=== PATIENT | female | born 1950 | race Caucasian/White ===

== ENCOUNTER 2018-06-21 21:46 | Inpatient (IN) | payer OTHER ==
[~2018-06-21] VITALS: Ht 157.5 cm; Wt 64.9 kg
[2018-06-21] MEDS ORDERED: IV NORMAL SALINE 1000ML BAG 1,000 ML IV ONE (22:00)
[2018-06-21 22:13] LABS: BASO # 0.1 x10^3/uL (0.0-0.2); BASO % 1 % (0-3); EOS # 0.1 x10^3/uL (0.0-0.7); EOS % 1 % (0-3); HEMATOCRIT 36.3 % (36.0-47.0); HEMOGLOBIN 12.5 g/dL (12.0-15.5); LYMPH % 39 % (24-48); MEAN CORPUSCULAR HEMOGLOBIN 32 pg (25-35); MEAN CORPUSCULAR HGB CONC 34 g/dL (31-37); MEAN CORPUSCULAR VOLUME 94 fL (79-100); MONO # 0.4 x10^3/uL (0.0-1.1); MONO % 8 % (0-9); NEUT # 2.6 x10^3uL (1.8-7.7); NEUT % 51 % (31-73); PLATELET COUNT 134 x10^3/uL (140-400); RED BLOOD COUNT 3.86 x10^6/uL (3.50-5.40); RED CELL DISTRIBUTION WIDTH 13.9 % (11.5-14.5); WHITE BLOOD COUNT 5.2 x10^3/uL (4.0-11.0)
[2018-06-21 22:14] LABS: BILIRUBIN,URINE NEGATIVE (NEG); CLARITY,URINE CLEAR; COLOR,URINE YELLOW; NITRITE,URINE NEGATIVE (NEG); PH,URINE 6.5; PROTEIN,URINE NEGATIVE (NEG-TRACE)
[2018-06-21 22:21] LABS: BARBITURATES NEG (NEG); BENZODIAZEPINES NEG (NEG); CANNABINOIDS NEG (NEG); COCAINE NEG (NEG); METHADONE NEG (NEG); OPIATES NEG (NEG); PHENCYCLIDINE NEG (NEG)
[2018-06-21 22:22] LABS: AMPHETAMINE/METHAMPHETAMINE NEG (NEG)
[2018-06-21 22:23] LABS: PROTHROMBIN TIME PATIENT 13.3 SEC (11.7-14.0)
[2018-06-21 22:24] LABS: BACTERIA,URINE 0 /HPF (0-FEW); RBC,URINE 0 /HPF (0-2); SQUAMOUS EPITHELIAL CELL,UR FEW /LPF; WBC,URINE 0 /HPF (0-4)
[2018-06-21 22:29] LABS: CALCIUM 8.9 mg/dL (8.5-10.1); CREATININE 1.1 mg/dL (0.6-1.0); GFR 49.5; POTASSIUM 3.2 mmol/L (3.5-5.1)
[2018-06-21 22:43] LABS: CREATINE KINASE 55 U/L (26-192)
[2018-06-21 22:44] LABS: ALBUMIN 3.7 g/dL (3.4-5.0); ALBUMIN/GLOBULIN RATIO 0.8 (1.0-1.7); MAGNESIUM 1.3 mg/dL (1.8-2.4); TOTAL BILIRUBIN 1.5 mg/dL (0.2-1.0); TOTAL PROTEIN 8.2 g/dL (6.4-8.2)
--- NOTE | 2018-06-21 22:47 | RAD ---
Chest radiograph 06/21/2018 9:56 PM INDICATION: Altered mental status COMPARISON: None available TECHNIQUE: Portable upright frontal view of the chest is provided. FINDINGS: The cardiomediastinal silhouette is within normal limits. There are no pleural effusions. There is no pulmonary vascular congestion. There is no pneumothorax. The lungs are clear. No significant osseous abnormality is identified. IMPRESSION: No acute cardiopulmonary process. Electronically signed by: Dodie Henry MD (06/21/2018 10:44 PM) [facility]
--- NOTE | 2018-06-21 22:48 | RAD ---
PQRS Compliance statement: One or more of the following individualized dose reduction techniques were utilized for this examination: 1. Automated exposure control. 2. Adjustment of the mA and/or kV according to patient size. 3. Use of iterative reconstruction technique. Indication:ams, no priors TECHNIQUE: CT head without IV contrast COMPARISON:None FINDINGS: No pathologic extra-axial or intra-axial fluid collection. The ventricles and basal cisterns are within normal limits. No acute intracranial bleed. There is a moderate-sized area of low-attenuation with loss of howard-white differentiation in the left parietal and temporal lobe. Orbits are within normal limits. No suspicious calvarial lesion. Visualized paranasal sinuses and mastoid air cells are clear. IMPRESSION: 1. Moderate area of wedge-shaped low-attenuation in the left parietal and temporal lobe with loss of howard-white differentiation concerning for infarct, age indeterminate likely subacute. Further elevation with MRI recommended. Findings of the Dr. Nagel on 06/21/2018 at 10:44 PM. Electronically signed by: Bertin Patrick DO (06/21/2018 10:45 PM) [facility]
[2018-06-21] MEDS ORDERED: DEXTROSE 50% 25 GM / 50ML DISP.SYRIN. IV PRN (23:30)
[2018-06-21] MEDS ORDERED: ASPIRIN RECTAL 300 MG SUPP. PR ONE (23:30)
[2018-06-21] MEDS ORDERED: ONDANSETRON PF 4 MG/2 ML VIAL. IV PRN (23:30)
--- NOTE | 2018-06-21 23:32 | PHYS DOC ---
Past Medical History Past Medical History: Anxiety, CVA, Diabetes-Type II, Hypertension Past Medical History Limited due to patient's current altered mental state. Past Surgical History: Appendectomy, Cholecystectomy Past Surgical History Limited due to patient's current altered mental state. Smoking: Quit Greater Than 1 Year Alcohol Use: Occasionally Drug Use: None Social History Limited due to patient's current altered mental state. Adult General Chief Complaint Chief Complaint: NEURO SYMPTOMS/DEFICITS HPI HPI 68 y/o female presents via EMS with report of altered mental status and reports of difficulty speaking and "writing gibberish" per son. Patient last known well was yesterday, 06/20/18 in AM. Change was noticed that evening but patient did not want to seek medical care at that time. No known trauma. HPI limited due to patient's current altered mental state. Review of Systems Review of Systems Constitutional: Denies fever or chills [] Respiratory: Denies shortness of breath [] Cardiovascular: Denies chest pain GI: Denies vomiting Integument: Denies rash or skin lesions [] Neurologic: Slurred speech, altered mental status ROS limited due to altered mental status Current Medications Current Medications Current Medications Medications (Trade) Dose Ordered Sig/Irma Start Time Stop Time Status Last Admin Dose Admin Sodium Chloride 1,000 ml @ 1,000 mls/hr 1X ONCE 06/21/18 22:00 06/21/18 22:59 DC 06/21/18 23:53 1,000 MLS/HR Allergies Allergies Physical Exam Physical Exam Constitutional: Well developed, well nourished, no acute distress HENT: Normocephalic, atraumatic, oropharynx moist Eyes: PERRL, EOMI, conjunctiva normal, no discharge. [] Neck: Normal range of motion, no tenderness, supple, no meningeal signs Cardiovascular:Heart rate normal with regular rhythm Lungs & Thorax: Bilateral breath sounds clear to auscultation [] Abdomen: Soft, no tenderness Skin: Warm, dry, no erythema, no rash. [] Extremities: No tenderness, ROM intact, no edema. [] Neurologic: GCS 13 (eyes 4, verbal 3, motor 6), unable to answer name or date, difficulty with following commands, No sensation deficit noted, BLE leg raise with drift touching bed, BUE without drift, severe dysarthria and moderate expressive aphasia noted Psychologic: Affect flat, judgement abnormal, unable to fully access Current Patient Data Vital Signs Lab Values Laboratory Tests Test 06/21/18 21:51 06/21/18 22:05 Glucose (Fingerstick) 98 mg/dL (70-99) White Blood Count 5.2 x10^3/uL (4.0-11.0) Red Blood Count 3.86 x10^6/uL (3.50-5.40) Hemoglobin 12.5 g/dL (12.0-15.5) Hematocrit 36.3 % (36.0-47.0) Mean Corpuscular Volume 94 fL (79-100) Mean Corpuscular Hemoglobin 32 pg (25-35) Mean Corpuscular Hemoglobin Concent 34 g/dL (31-37) Red Cell Distribution Width 13.9 % (11.5-14.5) Platelet Count 134 x10^3/uL (140-400) L Neutrophils (%) (Auto) 51 % (31-73) Lymphocytes (%) (Auto) 39 % (24-48) Monocytes (%) (Auto) 8 % (0-9) Eosinophils (%) (Auto) 1 % (0-3) Basophils (%) (Auto) 1 % (0-3) Neutrophils # (Auto) 2.6 x10^3uL (1.8-7.7) Lymphocytes # (Auto) 2.0 x10^3/uL (1.0-4.8) Monocytes # (Auto) 0.4 x10^3/uL (0.0-1.1) Eosinophils # (Auto) 0.1 x10^3/uL (0.0-0.7) Basophils # (Auto) 0.1 x10^3/uL (0.0-0.2) Prothrombin Time 13.3 SEC (11.7-14.0) Prothrombin Time INR 1.0 (0.8-1.1) PTT 28 SEC (24-38) Urine Collection Type U cath Urine Color Yellow Urine Clarity Clear Urine pH 6.5 Urine Specific [place] <=1.005 Urine Protein Negative mg/dL (NEG-TRACE) Urine Glucose (UA) Negative mg/dL (NEG) Urine Ketones (Stick) Negative mg/dL (NEG) Urine Blood Negative (NEG) Urine Nitrite Negative (NEG) Urine Bilirubin Negative (NEG) Urine Urobilinogen Dipstick 4.0 mg/dL (0.2 mg/dL) Urine Leukocyte Esterase Negative (NEG) Urine RBC 0 /HPF (0-2) Urine WBC 0 /HPF (0-4) Urine Squamous Epithelial Cells Few /LPF Urine Bacteria 0 /HPF (0-FEW) Sodium Level 133 mmol/L (136-145) L Potassium Level 3.2 mmol/L (3.5-5.1) L Chloride Level 94 mmol/L (98-107) L Carbon Dioxide Level 25 mmol/L (21-32) Anion Gap 14 (6-14) Blood Urea Nitrogen 16 mg/dL (7-20) Creatinine 1.1 mg/dL (0.6-1.0) H Estimated GFR (Cockcroft-Gault) 49.5 BUN/Creatinine Ratio 15 (6-20) Glucose Level 100 mg/dL (70-99) H Lactic Acid Level 1.8 mmol/L (0.4-2.0) Calcium Level 8.9 mg/dL (8.5-10.1) Magnesium Level 1.3 mg/dL (1.8-2.4) L Total Bilirubin 1.5 mg/dL (0.2-1.0) H Aspartate Amino Transferase (AST) 30 U/L (15-37) Alanine Aminotransferase (ALT) 27 U/L (14-59) Alkaline Phosphatase 167 U/L (46-116) H Ammonia 11 mcmol/L (11-34) Creatine Kinase 55 U/L (26-192) Creatine Kinase MB (Mass) 0.6 ng/mL (0.0-3.6) Creatine Kinase MB Relative Index % (0-4) Troponin I Quantitative < 0.017 ng/mL (0.000-0.055) Total Protein 8.2 g/dL (6.4-8.2) Albumin 3.7 g/dL (3.4-5.0) Albumin/Globulin Ratio 0.8 (1.0-1.7) L Urine Opiates Screen Neg (NEG) Urine Methadone Screen Neg (NEG) Urine Barbiturates Neg (NEG) Urine Phencyclidine Screen Neg (NEG) Urine Amphetamine/Methamphetamine Neg (NEG) Urine Benzodiazepines Screen Neg (NEG) Urine Cocaine Screen Neg (NEG) Urine Cannabinoids Screen Neg (NEG) Ethyl Alcohol Level < 10 mg/dL (0-10) Urine Ethyl Alcohol Neg (NEG) Laboratory Tests 06/21/18 22:05 Laboratory Tests 06/21/18 22:05 EKG EKG @2157 NSR at 61bpm, NO ST elevation, baseline artifact noted to V5-V6 Radiology/Procedures Radiology/Procedures PROCEDURE: CT HEAD WO CONTRAST PQRS Compliance statement: One or more of the following individualized dose reduction techniques were utilized for this examination: 1. Automated exposure control. 2. Adjustment of the mA and/or kV according to patient size. 3. Use of iterative reconstruction technique. Indication:ams, no priors TECHNIQUE: CT head without IV contrast COMPARISON:None FINDINGS: No pathologic extra-axial or intra-axial fluid collection. The ventricles and basal cisterns are within normal limits. No acute intracranial bleed. There is a moderate-sized area of low-attenuation with loss of howard-white differentiation in the left parietal and temporal lobe. Orbits are within normal limits. No suspicious calvarial lesion. Visualized paranasal sinuses and mastoid air cells are clear. IMPRESSION: 1. Moderate area of wedge-shaped low-attenuation in the left parietal and temporal lobe with loss of howard-white differentiation concerning for infarct, age indeterminate likely subacute. Further elevation with MRI recommended. Findings of the Dr. Goodwin on 06/21/2018 at 10:44 PM. Electronically signed by: Bertin Patrick DO (06/21/2018 10:45 PM) [facility] PROCEDURE: CHEST AP ONLY Chest radiograph 06/21/2018 9:56 PM INDICATION: Altered mental status COMPARISON: None available TECHNIQUE: Portable upright frontal view of the chest is provided. FINDINGS: The cardiomediastinal silhouette is within normal limits. There are no pleural effusions. There is no pulmonary vascular congestion. There is no pneumothorax. The lungs are clear. No significant osseous abnormality is identified. IMPRESSION: No acute cardiopulmonary process. Electronically signed by: Dodie Henry MD (06/21/2018 10:44 PM) [facility] Course & Med Decision Making Course & Med Decision Making Pertinent Labs and Imaging studies reviewed. (See chart for details) Patient presents via EMS with altered mental status with concern for possible stoke. NIHSS 11 with focal deficits including aphasia, dysarthria, and global confusion. GCS 13. No known trauma. CT head with findings concerning for subacute CVA. Patient outside window of time for TPA or neurointerventional therapy. ASA AR given. Labs obtained and posted to chart. EKG stable. CXR without acute process. Patient requiring admission for further evaluation and treatment. Discussed with Dr. Man (hospitalist) who is in agreement with admit. Discussed findings and plan with family, who acknowledge understanding and agreement. Dragon Disclaimer Dragon Disclaimer This electronic medical record was generated, in whole or in part, using a voice recognition dictation system. Departure Departure Impression: Primary Impression: Acute CVA (cerebrovascular accident) Disposition: ADMITTED INPATIENT Admitting Physician: Other (Dr. Man) Condition: GUARDED Referrals: NEFTALY HUNT MD (PCP) Critical Care Time Critical care time was 30 minutes which includes time at bedside, spent in discussion of patient's care with specialists and/or family members, with interpretation of laboratory and/or radiological studies and is exclusive of procedures. NIHSS Stroke Scale NIH Stroke Scale: NIH Stroke Scale Response (Comments) Value Level of Consciousness: 0 Alert/Responsive 0 LOC Questions: 2 Answers neither correct 2 LOC Commands: 1 Performs one task 1 Best Gaze: 0 Normal 0 Visual: 0 No visual loss 0 Facial Palsy: 0 Normal, symmetrical 0 Motor - Left Arm 0 No drift 0 Motor - Right Arm 0 No drift 0 Motor - Left Leg 2 Some effort 2 Motor: Right Leg 2 Some effort 2 Limb Ataxia: 0 Absent 0 Sensory: 0 No loss 0 Best Language: 1 Mild to mod aphasia 1 Dysathria: 2 Severe 2 Extinction and Inattention: 1 One sensory modality 1 Total 11 GOODWIN,VALERIE Salgado DO Jun 21, 2018 23:32
[2018-06-22] VITALS (7 sets, daily range): BP systolic 131–182; BP diastolic 50–86
[2018-06-22] MEDS ORDERED: METF500T9 PO (03:18)
[2018-06-22] MEDS ORDERED: LEVO100T5 PO (03:18)
[2018-06-22] MEDS ORDERED: GLIP1TAB4 PO ×4 (03:18→03:30)
[2018-06-22] MEDS ORDERED: LISI-130 PO (03:18)
[2018-06-22] MEDS ORDERED: ATEN100T PO (03:18)
[2018-06-22] MEDS ORDERED: LORA1TAB PO (03:30)
[2018-06-22] MEDS ORDERED: HYDR-3164 PO ×2 (03:30)
--- NOTE | 2018-06-22 05:42 | NUR ---
Patient admitted approximately 0045, accompanied by several family members. NIH completed upon arrival, noted to be at 6. Not able to communicate or able to comprehend simple instructions. No signs or symptoms of pain.
[2018-06-22] MEDS: INSULIN LISPRO 300 UNITS/3 ML INSULN.PEN. SQ SCH ×3 (08:00→17:00)
--- NOTE | 2018-06-22 08:20 | PDOC1 ---
History and Physical Date of Admission Date of Admission DATE: 06/22/18 TIME: 08:17 Identification/Chief Complaint Chief Complaint 68 yo NIH on admit was 11 Admitted for likely CVA Source Source: Caregiver, Chart review, Patient History of Present Illness History of Present Illness Ms Alford is a 68yo F w/ PMHx HTN, DM2, hypothyroidism who presents with aphasia noted by her son this morning. Last seen normal Tuesday night. She makes meaningful eye contact, does not appropriately follow commands, moves all extremities. No recent trauma or illness. She was writing "gibberish" according to her son as well and was very concerning. Came to hospital for further care. Potassium 3.2, Na 133 EKG to ma showed NSR at 61bpm, NO ST elevation, baseline artifact noted to V5-V6 CT revealed wedge shaped hypodensity in left MCA territory parietal and temporal lobes. Past Medical History Cardiovascular: HTN Pulmonary: No pertinent hx GI: No pertinent hx Heme/Onc: No pertinent hx Hepatobiliary: No pertinent hx Psych: No pertinent hx Musculoskeletal: low back pain Rheumatologic: No pertinent hx Infectious disease: No pertinent hx ENT: No pertinent hx Renal/: No pertinent hx Endocrine: Diabetes, Hyperthyroidism Dermatology: No pertinent hx Past Surgical History Past Surgical History: No pertinent history Family History Family History: Diabetes, Hypothyroidism Social History Smoke: Quit (7 years ago) ALCOHOL: rare Drugs: None Current Problem List Problem List Problems Medical Problems: (1) Acute CVA (cerebrovascular accident) Status: Acute Current Medications Current Medications Current Medications Sodium Chloride 1,000 ml @ 1,000 mls/hr 1X ONCE IV Last administered on at 23:53; Start 06/21/18 at 22:00; Stop 06/21/18 at 22:59; Status DC Aspirin (Aspirin) 300 mg 1X ONCE FL Last administered on 06/21/18at 23:52; Start 06/21/18 at 23:30; Stop 06/21/18 at 23:31; Status DC Ondansetron HCl (Zofran) 4 mg PRN Q8HRS PRN IV NAUSEA/VOMITING; Start 06/21/18 at 23:30; Stop 06/22/18 at 23:29 Insulin Human Lispro (HumaLOG) 0-5 UNITS TIDWMEALS SQ ; Start 06/22/18 at 08:00 Dextrose (Dextrose 50%-Water Syringe) 12.5 gm PRN Q15MIN PRN IV SEE COMMENTS; Start 06/21/18 at 23:30 Active Scripts Active Reported Lorazepam 1 Mg Tablet 1 Tab PO TID PRN PRN [place] 5-325 Tablet (Acetaminophen/Hydrocodone Bitart) 1 Each Tablet 1-2 Tab PO PRN Q4-6HRS PRN Glipizide-Metformin 2.5-500 Mg (Glipizide/Metformin Hcl) 1 Each Tablet 1 Each PO DAILYWSUP Glipizide-Metformin 2.5-500 Mg (Glipizide/Metformin Hcl) 1 Each Tablet 2 Each PO DAILY Atenolol 100 Mg Tablet 1 Tab PO DAILY Levothyroxine Sodium 100 Mcg Tablet 1 Tab PO DAILY Metformin Hcl Er (Metformin Hcl) 500 Mg Tab.er.24h 500 Mg PO DAILYWBKFT Lisinopril 40 Mg Tablet 1 Tab PO DAILY Allergies Allergies: Coded Allergies: No Known Drug Allergies (Unverified , 06/21/18) ROS Review of System Unable to obtain due to nonverbal status Physical Exam General: No acute distress, Other (Does not follow commands) HEENT: Atraumatic, PERRLA, EOMI, Mucous membr. moist/pink Lungs: Clear to auscultation, Normal air movement Heart: S1S2, RRR, no gallops Abdomen: Normal bowel sounds, Soft, No tenderness, No hepatosplenomegaly, No masses Extremities: No clubbing, No cyanosis, No edema, Normal pulses, No tenderness/ swelling Skin: No rashes, No breakdown, No significant lesion Neuro: Normal gait, Strength at 5/5 X4 ext, Normal tone, Reflexes 2+ Vitals Vitals Vital Signs Date Time Temp Pulse Resp B/P (MAP) Pulse Ox O2 Delivery O2 Flow Rate FiO2 06/22/18 07:05 98.6 63 16 146/86 (106) 98 Room Air 98.6 Labs Labs Laboratory Tests Test 06/21/18 21:51 06/21/18 22:05 06/22/18 02:30 06/22/18 05:25 Glucose (Fingerstick) 98 mg/dL (70-99) White Blood Count 5.2 x10^3/uL (4.0-11.0) Red Blood Count 3.86 x10^6/uL (3.50-5.40) Hemoglobin 12.5 g/dL (12.0-15.5) Hematocrit 36.3 % (36.0-47.0) Mean Corpuscular Volume 94 fL (79-100) Mean Corpuscular Hemoglobin 32 pg (25-35) Mean Corpuscular Hemoglobin Concent 34 g/dL (31-37) Red Cell Distribution Width 13.9 % (11.5-14.5) Platelet Count 134 x10^3/uL (140-400) Neutrophils (%) (Auto) 51 % (31-73) Lymphocytes (%) (Auto) 39 % (24-48) Monocytes (%) (Auto) 8 % (0-9) Eosinophils (%) (Auto) 1 % (0-3) Basophils (%) (Auto) 1 % (0-3) Neutrophils # (Auto) 2.6 x10^3uL (1.8-7.7) Lymphocytes # (Auto) 2.0 x10^3/uL (1.0-4.8) Monocytes # (Auto) 0.4 x10^3/uL (0.0-1.1) Eosinophils # (Auto) 0.1 x10^3/uL (0.0-0.7) Basophils # (Auto) 0.1 x10^3/uL (0.0-0.2) Prothrombin Time 13.3 SEC (11.7-14.0) Prothromb Time International Ratio 1.0 (0.8-1.1) Activated Partial Thromboplast Time 28 SEC (24-38) Urine Collection Type U cath Urine Color Yellow Urine Clarity Clear Urine pH 6.5 Urine Specific [place] <=1.005 Urine Protein Negative mg/dL (NEG-TRACE) Urine Glucose (UA) Negative mg/dL (NEG) Urine Ketones (Stick) Negative mg/dL (NEG) Urine Blood Negative (NEG) Urine Nitrite Negative (NEG) Urine Bilirubin Negative (NEG) Urine Urobilinogen Dipstick 4.0 mg/dL (0.2 mg/dL) Urine Leukocyte Esterase Negative (NEG) Urine RBC 0 /HPF (0-2) Urine WBC 0 /HPF (0-4) Urine Squamous Epithelial Cells Few /LPF Urine Bacteria 0 /HPF (0-FEW) Sodium Level 133 mmol/L (136-145) Potassium Level 3.2 mmol/L (3.5-5.1) Chloride Level 94 mmol/L (98-107) Carbon Dioxide Level 25 mmol/L (21-32) Anion Gap 14 (6-14) Blood Urea Nitrogen 16 mg/dL (7-20) Creatinine 1.1 mg/dL (0.6-1.0) Estimated GFR (Cockcroft-Gault) 49.5 BUN/Creatinine Ratio 15 (6-20) Glucose Level 100 mg/dL (70-99) Lactic Acid Level 1.8 mmol/L (0.4-2.0) Calcium Level 8.9 mg/dL (8.5-10.1) Magnesium Level 1.3 mg/dL (1.8-2.4) Total Bilirubin 1.5 mg/dL (0.2-1.0) Aspartate Amino Transf (AST/SGOT) 30 U/L (15-37) Alanine Aminotransferase (ALT/SGPT) 27 U/L (14-59) Alkaline Phosphatase 167 U/L (46-116) Ammonia 11 mcmol/L (11-34) Creatine Kinase 55 U/L (26-192) Creatine Kinase MB (Mass) 0.6 ng/mL (0.0-3.6) Creatine Kinase MB Relative Index % (0-4) Troponin I Quantitative < 0.017 ng/mL (0.000-0.055) 0.026 ng/mL (0.000-0.055) 0.023 ng/mL (0.000-0.055) Total Protein 8.2 g/dL (6.4-8.2) Albumin 3.7 g/dL (3.4-5.0) Albumin/Globulin Ratio 0.8 (1.0-1.7) Urine Opiates Screen Neg (NEG) Urine Methadone Screen Neg (NEG) Urine Barbiturates Neg (NEG) Urine Phencyclidine Screen Neg (NEG) Urine Amphetamine/Methamphetamine Neg (NEG) Urine Benzodiazepines Screen Neg (NEG) Urine Cocaine Screen Neg (NEG) Urine Cannabinoids Screen Neg (NEG) Ethyl Alcohol Level < 10 mg/dL (0-10) Urine Ethyl Alcohol Neg (NEG) Triglycerides Level 157 mg/dL (0-150) Cholesterol Level 135 mg/dL (0-200) LDL Cholesterol, Calculated 77 mg/dL (0-100) VLDL Cholesterol, Calculated 31 mg/dL (0-40) Non-HDL Cholesterol Calculated 108 mg/dL (0-129) HDL Cholesterol 27 mg/dL (40-60) Cholesterol/HDL Ratio 5.0 Test 06/22/18 07:00 Glucose (Fingerstick) 110 mg/dL (70-99) Laboratory Tests Test 06/21/18 21:51 06/21/18 22:05 06/22/18 02:30 06/22/18 05:25 Glucose (Fingerstick) 98 mg/dL (70-99) White Blood Count 5.2 x10^3/uL (4.0-11.0) Red Blood Count 3.86 x10^6/uL (3.50-5.40) Hemoglobin 12.5 g/dL (12.0-15.5) Hematocrit 36.3 % (36.0-47.0) Mean Corpuscular Volume 94 fL (79-100) Mean Corpuscular Hemoglobin 32 pg (25-35) Mean Corpuscular Hemoglobin Concent 34 g/dL (31-37) Red Cell Distribution Width 13.9 % (11.5-14.5) Platelet Count 134 x10^3/uL (140-400) Neutrophils (%) (Auto) 51 % (31-73) Lymphocytes (%) (Auto) 39 % (24-48) Monocytes (%) (Auto) 8 % (0-9) Eosinophils (%) (Auto) 1 % (0-3) Basophils (%) (Auto) 1 % (0-3) Neutrophils # (Auto) 2.6 x10^3uL (1.8-7.7) Lymphocytes # (Auto) 2.0 x10^3/uL (1.0-4.8) Monocytes # (Auto) 0.4 x10^3/uL (0.0-1.1) Eosinophils # (Auto) 0.1 x10^3/uL (0.0-0.7) Basophils # (Auto) 0.1 x10^3/uL (0.0-0.2) Prothrombin Time 13.3 SEC (11.7-14.0) Prothromb Time International Ratio 1.0 (0.8-1.1) Activated Partial Thromboplast Time 28 SEC (24-38) Urine Collection Type U cath Urine Color Yellow Urine Clarity Clear Urine pH 6.5 Urine Specific [place] <=1.005 Urine Protein Negative mg/dL (NEG-TRACE) Urine Glucose (UA) Negative mg/dL (NEG) Urine Ketones (Stick) Negative mg/dL (NEG) Urine Blood Negative (NEG) Urine Nitrite Negative (NEG) Urine Bilirubin Negative (NEG) Urine Urobilinogen Dipstick 4.0 mg/dL (0.2 mg/dL) Urine Leukocyte Esterase Negative (NEG) Urine RBC 0 /HPF (0-2) Urine WBC 0 /HPF (0-4) Urine Squamous Epithelial Cells Few /LPF Urine Bacteria 0 /HPF (0-FEW) Sodium Level 133 mmol/L (136-145) Potassium Level 3.2 mmol/L (3.5-5.1) Chloride Level 94 mmol/L (98-107) Carbon Dioxide Level 25 mmol/L (21-32) Anion Gap 14 (6-14) Blood Urea Nitrogen 16 mg/dL (7-20) Creatinine 1.1 mg/dL (0.6-1.0) Estimated GFR (Cockcroft-Gault) 49.5 BUN/Creatinine Ratio 15 (6-20) Glucose Level 100 mg/dL (70-99) Lactic Acid Level 1.8 mmol/L (0.4-2.0) Calcium Level 8.9 mg/dL (8.5-10.1) Magnesium Level 1.3 mg/dL (1.8-2.4) Total Bilirubin 1.5 mg/dL (0.2-1.0) Aspartate Amino Transf (AST/SGOT) 30 U/L (15-37) Alanine Aminotransferase (ALT/SGPT) 27 U/L (14-59) Alkaline Phosphatase 167 U/L (46-116) Ammonia 11 mcmol/L (11-34) Creatine Kinase 55 U/L (26-192) Creatine Kinase MB (Mass) 0.6 ng/mL (0.0-3.6) Creatine Kinase MB Relative Index % (0-4) Troponin I Quantitative < 0.017 ng/mL (0.000-0.055) 0.026 ng/mL (0.000-0.055) 0.023 ng/mL (0.000-0.055) Total Protein 8.2 g/dL (6.4-8.2) Albumin 3.7 g/dL (3.4-5.0) Albumin/Globulin Ratio 0.8 (1.0-1.7) Urine Opiates Screen Neg (NEG) Urine Methadone Screen Neg (NEG) Urine Barbiturates Neg (NEG) Urine Phencyclidine Screen Neg (NEG) Urine Amphetamine/Methamphetamine Neg (NEG) Urine Benzodiazepines Screen Neg (NEG) Urine Cocaine Screen Neg (NEG) Urine Cannabinoids Screen Neg (NEG) Ethyl Alcohol Level < 10 mg/dL (0-10) Urine Ethyl Alcohol Neg (NEG) Triglycerides Level 157 mg/dL (0-150) Cholesterol Level 135 mg/dL (0-200) LDL Cholesterol, Calculated 77 mg/dL (0-100) VLDL Cholesterol, Calculated 31 mg/dL (0-40) Non-HDL Cholesterol Calculated 108 mg/dL (0-129) HDL Cholesterol 27 mg/dL (40-60) Cholesterol/HDL Ratio 5.0 Test 06/22/18 07:00 Glucose (Fingerstick) 110 mg/dL (70-99) Images Images CT head - 1. Moderate area of wedge-shaped low-attenuation in the left parietal and temporal lobe with loss of howard-white differentiation concerning for infarct , age indeterminate likely subacute. Further elevation with MRI recommended. CXR - No acute cardiopulmonary process. VTE Prophylaxis Ordered VTE Prophylaxis Devices: No VTE Pharmacological Prophylaxi: Yes Assessment/Plan Assessment/Plan A/P: Aphasia - based on CT head likely has a large left parietal and temporal CVA with receptive and expressive aphasia, seems to be feeling her right hand as though there is sensation loss. Does not follow commands at all. ASA, statin, Neurology consultation. 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
--- NOTE | 2018-06-22 09:19 | EKG ---
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
--- NOTE | 2018-06-22 12:33 | RAD ---
Carotid ultrasound, 06/22/2018: HISTORY: CVA Duplex evaluation of the carotid arteries to the ovaries performed including grayscale, color-flow and spectral Doppler analysis. There is mild atherosclerotic plaquing at the right carotid bifurcation and moderate plaquing on the left. The left plaques are partially calcified. The peak systolic velocity in the right internal carotid artery is 64 cm per sec with an end-diastolic velocity of 19 cm/s and an internal carotid to common carotid artery ratio of 0.9. On the left the peak systolic velocity in the internal carotid artery is 85 cm/s with an end-diastolic velocity of 23 cm/s and an internal carotid to common carotid artery ratio 1.0. These Doppler findings suggest luminal narrowing in the 0-50 percent diameter range. Antegrade flow is present in both vertebral arteries in the neck. IMPRESSION: Mild to moderate atherosclerotic plaquing at the carotid bifurcations, left greater than right, with underlying luminal narrowing in the 0-50 percent diameter range bilaterally. Note: Stenosis calculations for CT, MRA and conventional angiography are based upon determination of the distal ICA diameter in accordance with the NASCET methodology. Stenosis calculations for Doppler studies are derived from validated velocity criteria which are known to correlate with NASCET methodology of determining stenosis. Electronically signed by: Aj Velarde MD (06/22/2018 12:31 PM) [facility]
--- NOTE | 2018-06-22 13:02 | RAD ---
MRI of the brain without contrast 06/22/2018 Clinical History: Altered mental status. Suspected acute stroke seen CT scan of the head from yesterday. Technique: Unenhanced T1-weighted sagittal and axial, T2-weighted axial and coronal and FLAIR, gradient echo and diffusion-weighted axial images of the brain were obtained. Findings: Comparison is made to the patient's CT scan of the head dated 06/21/2018. There is generalized parenchymal atrophy. Patchy, confluent and multiple focal areas of increased signal intensity are seen within the periventricular and subcortical white matter of both cerebral hemispheres on the FLAIR and T2-weighted images consistent with areas of small vessel ischemic disease. Old areas of infarction are seen involving both cerebellar hemispheres. These measure 3 mm to 9 mm in size. Old areas of lacunar infarction are seen involving the right thalamus. These measure 3 mm in size. Old areas of lacunar infarction are seen involving the white matter of the right frontoparietal lobe. These measure 5 mm to 1.2 cm in size. A large area of restricted diffusion is seen involving the left temporal lobe extending to involve the left parietal lobe. This measures 10 x 5.0 x 4.8 cm in AP, craniocaudal and transverse dimensions. This is consistent with an area of acute infarction. This is in a left MCA distribution. It corresponds to the low-attenuation area seen on the patient's CT scan. There is surrounding edema and associated mass effect without evidence of midline shift. No additional acute parenchymal abnormality is seen. No extra-axial fluid collection is noted. Mild mucosal thickening is seen scattered throughout ethmoid air cells bilaterally. There is a minimal right mastoid effusion. Diminished flow void is seen involving the left MCA trifurcation and its branches. IMPRESSION: Large area of acute infarction is seen involving the left temporal and left parietal lobe as outlined above. There is surrounding edema and associated mass effect without evidence of midline shift. Electronically signed by: Eduardo Schilling MD (06/22/2018 1:00 PM) [id number]
[2018-06-22] MEDS ORDERED: HYDROcodone/APAP 5/325MG 1 TAB TABLET PO PRN (15:00)
--- NOTE | 2018-06-22 15:49 | CARD ---
MR#: [id number] Date of Study: 06/22/2018 Ordering Physician: DOROTHY PAIZ, Referring Physician: PÉREZ DEE Tech: Gena Pemberton RDCS APPROVED REPORT EXAM: Two-dimensional and M-mode echocardiogram with Doppler and color Doppler. Other Information Quality : Good INDICATION CVA/TIA Echo Enhancing Agent Agent/Amount Used: Agitated Saline 8mL 2D DIMENSIONS RVDd1.7 (2.9-3.5cm)Left Atrium(2D)4.2 (1.6-4.0cm) IVSd1.2 (0.7-1.1cm)Aortic Root(2D)2.7 (2.0-3.7cm) LVDd5.0 (3.9-5.9cm)LVOT Diameter2.1 (1.8-2.4cm) PWd1.0 (0.7-1.1cm)LVDs3.5 (2.5-4.0cm) FS (%) 29.9 %SV66.7 ml LVEF(%)56.8 (>50%) Aortic Valve AoV Peak Neri.234.7cm/sAoV VTI41.3cm AO Peak GR.22.0mmHgLVOT Peak Neri.118.6cm/s LVOT VTI 32.33cmAO Mean GR.11mmHg KRISTINE (VMAX)1.18gr0MIJ (VTI)2.75cm2 AI P 1/2 [id number] Mitral Valve MV E Ckzdlclp42.3cm/sMV DECEL [id number] MV A Sbhjozhg571.3cm/sMV UHO18rn E/A Ratio0.7MVA (PHT)2.67cm2 TDI E/Lateral E'19.5E/Medial E'23.5 Pulmonary Vein S1 Woouxosl19.7cm/sD2 Glxlhdui22.8cm/s LEFT VENTRICLE The left ventricle is normal size. There is normal left ventricular wall thickness. The left ventricu lar systolic function is normal and the ejection fraction is within normal range. The Ejection Fracti on is 55-60%. There is normal LV segmental wall motion. Transmitral Doppler flow pattern is Grade I-a bnormal relaxation pattern. RIGHT VENTRICLE The right ventricle is normal size. The right ventricular systolic function is normal. ATRIA The left atrium is mildly dilated. The right atrium size is normal. The interatrial septum is intact with no evidence for an atrial septal defect or patent foramen ovale as noted on 2-D or Doppler imagi ng. Injection of bubbles documented no interatrial shunt. AORTIC VALVE The aortic valve is calcified but opens well. Doppler and Color Flow revealed mild aortic regurgitati on. There is no significant aortic valvular stenosis. MITRAL VALVE The mitral valve is calcified but opens well. Mitral annular calcification is mild. There is no evide nce of mitral valve prolapse. There is no mitral valve stenosis. Doppler and Color-flow revealed trac e to mild mitral regurgitation. TRICUSPID VALVE The tricuspid valve is normal in structure and function. Doppler and Color Flow revealed no tricuspid valve regurgitation noted. There is no tricuspid valve stenosis. PULMONIC VALVE The pulmonic valve is not well visualized. Doppler and Color Flow revealed mild pulmonic valvular reg urgitation. There is no pulmonic valvular stenosis. GREAT VESSELS The aortic root is normal in size. The ascending aorta is not well seen. The IVC is normal in size an d collapses >50% with inspiration. PERICARDIAL EFFUSION There is no evidence of significant pericardial effusion. Critical Notification Critical Value: No <Conclusion> The left ventricle is normal size. The left ventricular systolic function is normal and the ejection fraction is within normal range. The Ejection Fraction is 55-60%. The interatrial septum is intact with no evidence for an atrial septal defect or patent foramen ovale as noted on 2-D or Doppler imaging. Injection of bubbles documented no interatrial shunt. There is no significant aortic valvular stenosis. Doppler and Color Flow revealed mild aortic regurgitation. Doppler and Color-flow revealed trace to mild mitral regurgitation. Doppler and Color Flow revealed no tricuspid valve regurgitation noted. Signed by : Mina Owens MD Electronically Approved : 06/22/2018 15:49:18
[2018-06-22] MEDS ORDERED: ATENOLOL 50 MG TABLET. PO SCH (16:00)
[2018-06-22] MEDS: ASPIRIN 325 MG TABLET PO SCH (16:09)
[2018-06-22] MEDS: LEVOTHYROXINE 100 MCG TABLET PO SCH (16:10)
[2018-06-22] MEDS: amLODIPine BESYLATE 5 MG TABLET PO SCH (16:10)
[2018-06-22] MEDS: LISINOPRIL 20 MG TABLET PO SCH (16:11)
[2018-06-22] MEDS ORDERED: GLIPIZIDE PO SCH (17:00)
[2018-06-22] MEDS ORDERED: METFORMIN HCL PO SCH (17:00)
[2018-06-22] MEDS: metFORMIN 500 MG TABLET PO SCH (18:00)
[2018-06-22] MEDS: glipiZIDE 5 MG TABLET PO SCH (18:01)
[2018-06-22] MEDS: HYDROcodone/APAP 5/325MG 1 TAB TABLET PO PRN ×2 (19:07→23:26)
--- NOTE | 2018-06-22 19:41 | PDOC2 ---
NEUROLOGY CONSULT Date of Admission Date of Admission DATE: 06/22/18 TIME: 19:25 Reason for Consult Reason for Consult: IMPRESSION: Subacute large left parietal and temporal infract. Cerebral edema surrounding infarct areas. Metabolic encephalopathy. Mixed aphasia. HTN. HLD. DM. Over weight. RECOMMENDATIONS/PLAN: ASA 325 mg daily. Zocor HS.Carotid A US + Doppler, performed. Echo performed. Lab: see orders. OT/OT. Swallow test, she passed. Rehab. Discussed in all detail with her son, daughter, son-in-law, [id number] and showed them MRI findings on 06/22/18. HISTORY OF THE PRESENT ILLNESS: 68-y-old female patient with Hx of HTN, HLD, DM was last known normal in the morning of 06/20/18. She was noted mental status changes with aphasia that evening, but did not search medical attention until next day to come to the ER on 06/21/18. Her HCT was abnormal for stroke but the age was undetermined. MRI showed large subacute infract. PAST MEDICAL HISTORY: HTN. HLD. DM. Over weight. PAST SURGERY HISTORY: No major surgery recently. ALLERGY: Unknown MEDICATIONS: Refer to [facility] FAMILY HISTORY: Non contributory. SOCIAL HISTORY: Lives at home with her grandson. Denies current smoking, drinking, and illicit drug use. REVIEW OF SYSTEMS: Constitutional: No malnutrition, weight loss, cachexia. Head: No traumatic brain or head injury. Skin: No edema, or rash. Ear: No infection. Eyes: No vision loss or color blindness. Nose: No bleeding or purulent discharges. Hearing: Hearing decrease. Neck: No injury. Breast: No history of cancer, masses,or discharges. Cardiac: HTN, HLD. Pulmonary: No COPD. GI: No GI ulcer, GI bleeding. Urinary/genital: UTI. Endocrinologic: Diabetes Mellitus? Skeletomuscular: No muscular atrophy, deformity. Neurological: see HP. Psychiatric: Denies drug use/abuse. Otherwise, not -wzkhf review of systems. PHYSICAL EXAMINATION: General appearance is in subacute distress. HEENT: Normocephalic and nontraumatic. Eyes, nose, ears, and throat are unremarkable. Neck is supple. No lymphadenopathy. No crepitus. Cardiovascular: S1, S2, regular rate and rhythm. Pulmonary: Clear to auscultation bilaterally. Abdomen: Bowel sounds are positive. Extremities: No rash, lesions, or edema. No restriction of range of motion NEUROLOGICAL EXAMINATION: Awake. Near non verbal. Mixed aphasia. Not oriented to time, place and person. PERRL. EOMI. CN: no focal findings. Muscle tone: within normal. Muscle strength: right side 4, left side 5-. DTR: 2- Plantar reflex: Neutral response bilaterally Gait: not examined in bed. Sensory exam: seemed decreased right UE side. Not able to access cerebellar signs. F-T-N test not performed due to not follow command. Current Medications Current Medications Current Medications Sodium Chloride 1,000 ml @ 1,000 mls/hr 1X ONCE IV Last administered on 23:53; Start 06/21/18 at 22:00; Stop 06/21/18 at 22:59; Status DC Aspirin (Aspirin) 300 mg 1X ONCE MI Last administered on 06/21/18at 23:52; Start 06/21/18 at 23:30; Stop 06/21/18 at 23:31; Status DC Ondansetron HCl (Zofran) 4 mg PRN Q8HRS PRN IV NAUSEA/VOMITING; Start 06/21/18 at 23:30; Stop 06/22/18 at 23:29 Insulin Human Lispro (HumaLOG) 0-5 UNITS TIDWMEALS SQ ; Start 06/22/18 at 08:00 Dextrose (Dextrose 50%-Water Syringe) 12.5 gm PRN Q15MIN PRN IV SEE COMMENTS; Start 06/21/18 at 23:30 Aspirin (Genesis Aspirin) 325 mg DAILYWBKFT PO Last administered on 06/22/18at 16: 09; Start 06/22/18 at 11:00 Simvastatin (Zocor) 5 mg QHS PO ; Start 06/22/18 at 21:00 Acetaminophen/ Hydrocodone Bitart (Lortab 5/325) 1 tab PRN Q6HRS PRN PO MILD PAIN Last administered on 06/22/18at 19:07; Start 06/22/18 at 15:00 Levothyroxine Sodium (Synthroid) 100 mcg DAILY07 PO Last administered on at 16:10; Start 06/22/18 at 16:00 Lisinopril (Prinivil) 40 mg DAILY PO Last administered on 06/22/18at 16:11; Start 06/22/18 at 16:00 Lorazepam (Ativan) 1 mg TID PRN PRN PO ANXIETY / AGITATION; Start 06/22/18 at 15:00 Atenolol (Tenormin) 100 mg DAILY PO ; Start 06/22/18 at 16:00; Stop 06/22/18 at 16:00; Status DC Non-Formulary Medication (Glipizide/ Metformin Hcl (Glipizide-Metformin 2.5-500 Mg)) 1 each DAILYWSUP PO ; Start 06/22/18 at 17:00; Status UNV Non-Formulary Medication (Glipizide/ Metformin Hcl (Glipizide-Metformin 2.5-500 Mg)) 2 each DAILY PO ; Start 06/23/18 at 09:00; Status UNV Non-Formulary Medication (Metformin Hcl (Metformin Hcl Er)) 500 mg DAILYWBKFT PO ; Start 06/23/18 at 08:00; Status UNV Acetaminophen/ Hydrocodone Bitart (Lortab 5/325) 2 tab PRN Q6HRS PRN PO MODERATE-SEVERE PAIN; Start 06/22/18 at 15:00 Amlodipine Besylate (Norvasc) 5 mg DAILY PO Last administered on 06/22/18at 16: 10; Start 06/22/18 at 16:00 Metformin HCl (Glucophage) 1,000 mg DAILYWBKFT PO ; Start 06/23/18 at 08:00 Metformin HCl (Glucophage) 500 mg DAILYWSUP PO Last administered on 06/22/18at 18:00; Start 06/22/18 at 17:00 Glipizide (Glucotrol) 5 mg DAILYWBKFT PO ; Start 06/23/18 at 08:00 Glipizide (Glucotrol) 2.5 mg DAILYWSUP PO Last administered on 06/22/18at 18:01 ; Start 06/22/18 at 17:00 Active Scripts Active Reported Lorazepam 1 Mg Tablet 1 Tab PO TID PRN PRN [place] 5-325 Tablet (Acetaminophen/Hydrocodone Bitart) 1 Each Tablet 1-2 Tab PO PRN Q4-6HRS PRN Glipizide-Metformin 2.5-500 Mg (Glipizide/Metformin Hcl) 1 Each Tablet 1 Each PO DAILYWSUP Glipizide-Metformin 2.5-500 Mg (Glipizide/Metformin Hcl) 1 Each Tablet 2 Each PO DAILY Atenolol 100 Mg Tablet 1 Tab PO DAILY Levothyroxine Sodium 100 Mcg Tablet 1 Tab PO DAILY Metformin Hcl Er (Metformin Hcl) 500 Mg Tab.er.24h 500 Mg PO DAILYWBKFT Lisinopril 40 Mg Tablet 1 Tab PO DAILY Allergies Allergies: Allergies Coded Allergies Type Severity Reaction Last Updated Verified No Known Drug Allergies 06/21/18 No ROS Review of System The patient denies any associated fevers, chills, headache, ear pain, rhinorrhea , sore throat, stiff neck, productive cough, chest pain, shortness of breath, back or flank pain, abdominal pain, nausea, vomiting, diarrhea, constipation, dysuria, rash, numbness, weakness, tingling, incontinence, difficulty ambulating, or diaphoresis. Physical Exam Physical Exam General: Well developed, well nourished, no acute distress, well appearing HEENT: Pupils equally round and reactive to light, EOMI, no discharge, normal conjunctiva Neck: Supple, no nuchal rigidity, no JVD, trachea midline, no tenderness Cardiac: RRR, no murmurs, no gallops, no rubs Chest/Lungs: CTAB, no wheeze, no rhonchi, no crackles Abdomen: soft, non-distended, no guarding, no peritoneal signs, non-tender Back: No tenderness Extremities: no edema, pulses intact, non-tender,capillary refill <3 sec bilateral upper and lower extremities, Neuro: Alert and oriented x 4, no focal deficits, normal speech Vitals Vitals: Vital Signs Date Time Temp Pulse Resp B/P (MAP) Pulse Ox O2 Delivery O2 Flow Rate FiO2 06/22/18 16:11 60 174/82 06/22/18 15:00 97.8 18 97 Room Air 97.8 Labs Labs Laboratory Tests Test 06/21/18 21:51 06/21/18 22:05 06/22/18 02:30 06/22/18 05:25 Glucose (Fingerstick) 98 mg/dL (70-99) White Blood Count 5.2 x10^3/uL (4.0-11.0) Red Blood Count 3.86 x10^6/uL (3.50-5.40) Hemoglobin 12.5 g/dL (12.0-15.5) Hematocrit 36.3 % (36.0-47.0) Mean Corpuscular Volume 94 fL (79-100) Mean Corpuscular Hemoglobin 32 pg (25-35) Mean Corpuscular Hemoglobin Concent 34 g/dL (31-37) Red Cell Distribution Width 13.9 % (11.5-14.5) Platelet Count 134 x10^3/uL (140-400) Neutrophils (%) (Auto) 51 % (31-73) Lymphocytes (%) (Auto) 39 % (24-48) Monocytes (%) (Auto) 8 % (0-9) Eosinophils (%) (Auto) 1 % (0-3) Basophils (%) (Auto) 1 % (0-3) Neutrophils # (Auto) 2.6 x10^3uL (1.8-7.7) Lymphocytes # (Auto) 2.0 x10^3/uL (1.0-4.8) Monocytes # (Auto) 0.4 x10^3/uL (0.0-1.1) Eosinophils # (Auto) 0.1 x10^3/uL (0.0-0.7) Basophils # (Auto) 0.1 x10^3/uL (0.0-0.2) Prothrombin Time 13.3 SEC (11.7-14.0) Prothromb Time International Ratio 1.0 (0.8-1.1) Activated Partial Thromboplast Time 28 SEC (24-38) Urine Collection Type U cath Urine Color Yellow Urine Clarity Clear Urine pH 6.5 Urine Specific [place] <=1.005 Urine Protein Negative mg/dL (NEG-TRACE) Urine Glucose (UA) Negative mg/dL (NEG) Urine Ketones (Stick) Negative mg/dL (NEG) Urine Blood Negative (NEG) Urine Nitrite Negative (NEG) Urine Bilirubin Negative (NEG) Urine Urobilinogen Dipstick 4.0 mg/dL (0.2 mg/dL) Urine Leukocyte Esterase Negative (NEG) Urine RBC 0 /HPF (0-2) Urine WBC 0 /HPF (0-4) Urine Squamous Epithelial Cells Few /LPF Urine Bacteria 0 /HPF (0-FEW) Sodium Level 133 mmol/L (136-145) Potassium Level 3.2 mmol/L (3.5-5.1) Chloride Level 94 mmol/L (98-107) Carbon Dioxide Level 25 mmol/L (21-32) Anion Gap 14 (6-14) Blood Urea Nitrogen 16 mg/dL (7-20) Creatinine 1.1 mg/dL (0.6-1.0) Estimated GFR (Cockcroft-Gault) 49.5 BUN/Creatinine Ratio 15 (6-20) Glucose Level 100 mg/dL (70-99) Lactic Acid Level 1.8 mmol/L (0.4-2.0) Calcium Level 8.9 mg/dL (8.5-10.1) Magnesium Level 1.3 mg/dL (1.8-2.4) Total Bilirubin 1.5 mg/dL (0.2-1.0) Aspartate Amino Transf (AST/SGOT) 30 U/L (15-37) Alanine Aminotransferase (ALT/SGPT) 27 U/L (14-59) Alkaline Phosphatase 167 U/L (46-116) Ammonia 11 mcmol/L (11-34) Creatine Kinase 55 U/L (26-192) Creatine Kinase MB (Mass) 0.6 ng/mL (0.0-3.6) Creatine Kinase MB Relative Index % (0-4) Troponin I Quantitative < 0.017 ng/mL (0.000-0.055) 0.026 ng/mL (0.000-0.055) 0.023 ng/mL (0.000-0.055) Total Protein 8.2 g/dL (6.4-8.2) Albumin 3.7 g/dL (3.4-5.0) Albumin/Globulin Ratio 0.8 (1.0-1.7) Urine Opiates Screen Neg (NEG) Urine Methadone Screen Neg (NEG) Urine Barbiturates Neg (NEG) Urine Phencyclidine Screen Neg (NEG) Urine Amphetamine/Methamphetamine Neg (NEG) Urine Benzodiazepines Screen Neg (NEG) Urine Cocaine Screen Neg (NEG) Urine Cannabinoids Screen Neg (NEG) Ethyl Alcohol Level < 10 mg/dL (0-10) Urine Ethyl Alcohol Neg (NEG) Triglycerides Level 157 mg/dL (0-150) Cholesterol Level 135 mg/dL (0-200) LDL Cholesterol, Calculated 77 mg/dL (0-100) VLDL Cholesterol, Calculated 31 mg/dL (0-40) Non-HDL Cholesterol Calculated 108 mg/dL (0-129) HDL Cholesterol 27 mg/dL (40-60) Cholesterol/HDL Ratio 5.0 Test 06/22/18 07:00 06/22/18 12:50 06/22/18 17:14 Glucose (Fingerstick) 110 mg/dL (70-99) 121 mg/dL (70-99) 142 mg/dL (70-99) Laboratory Tests Test 06/21/18 21:51 06/21/18 22:05 06/22/18 02:30 06/22/18 05:25 Glucose (Fingerstick) 98 mg/dL (70-99) White Blood Count 5.2 x10^3/uL (4.0-11.0) Red Blood Count 3.86 x10^6/uL (3.50-5.40) Hemoglobin 12.5 g/dL (12.0-15.5) Hematocrit 36.3 % (36.0-47.0) Mean Corpuscular Volume 94 fL (79-100) Mean Corpuscular Hemoglobin 32 pg (25-35) Mean Corpuscular Hemoglobin Concent 34 g/dL (31-37) Red Cell Distribution Width 13.9 % (11.5-14.5) Platelet Count 134 x10^3/uL (140-400) Neutrophils (%) (Auto) 51 % (31-73) Lymphocytes (%) (Auto) 39 % (24-48) Monocytes (%) (Auto) 8 % (0-9) Eosinophils (%) (Auto) 1 % (0-3) Basophils (%) (Auto) 1 % (0-3) Neutrophils # (Auto) 2.6 x10^3uL (1.8-7.7) Lymphocytes # (Auto) 2.0 x10^3/uL (1.0-4.8) Monocytes # (Auto) 0.4 x10^3/uL (0.0-1.1) Eosinophils # (Auto) 0.1 x10^3/uL (0.0-0.7) Basophils # (Auto) 0.1 x10^3/uL (0.0-0.2) Prothrombin Time 13.3 SEC (11.7-14.0) Prothromb Time International Ratio 1.0 (0.8-1.1) Activated Partial Thromboplast Time 28 SEC (24-38) Urine Collection Type U cath Urine Color Yellow Urine Clarity Clear Urine pH 6.5 Urine Specific [place] <=1.005 Urine Protein Negative mg/dL (NEG-TRACE) Urine Glucose (UA) Negative mg/dL (NEG) Urine Ketones (Stick) Negative mg/dL (NEG) Urine Blood Negative (NEG) Urine Nitrite Negative (NEG) Urine Bilirubin Negative (NEG) Urine Urobilinogen Dipstick 4.0 mg/dL (0.2 mg/dL) Urine Leukocyte Esterase Negative (NEG) Urine RBC 0 /HPF (0-2) Urine WBC 0 /HPF (0-4) Urine Squamous Epithelial Cells Few /LPF Urine Bacteria 0 /HPF (0-FEW) Sodium Level 133 mmol/L (136-145) Potassium Level 3.2 mmol/L (3.5-5.1) Chloride Level 94 mmol/L (98-107) Carbon Dioxide Level 25 mmol/L (21-32) Anion Gap 14 (6-14) Blood Urea Nitrogen 16 mg/dL (7-20) Creatinine 1.1 mg/dL (0.6-1.0) Estimated GFR (Cockcroft-Gault) 49.5 BUN/Creatinine Ratio 15 (6-20) Glucose Level 100 mg/dL (70-99) Lactic Acid Level 1.8 mmol/L (0.4-2.0) Calcium Level 8.9 mg/dL (8.5-10.1) Magnesium Level 1.3 mg/dL (1.8-2.4) Total Bilirubin 1.5 mg/dL (0.2-1.0) Aspartate Amino Transf (AST/SGOT) 30 U/L (15-37) Alanine Aminotransferase (ALT/SGPT) 27 U/L (14-59) Alkaline Phosphatase 167 U/L (46-116) Ammonia 11 mcmol/L (11-34) Creatine Kinase 55 U/L (26-192) Creatine Kinase MB (Mass) 0.6 ng/mL (0.0-3.6) Creatine Kinase MB Relative Index % (0-4) Troponin I Quantitative < 0.017 ng/mL (0.000-0.055) 0.026 ng/mL (0.000-0.055) 0.023 ng/mL (0.000-0.055) Total Protein 8.2 g/dL (6.4-8.2) Albumin 3.7 g/dL (3.4-5.0) Albumin/Globulin Ratio 0.8 (1.0-1.7) Urine Opiates Screen Neg (NEG) Urine Methadone Screen Neg (NEG) Urine Barbiturates Neg (NEG) Urine Phencyclidine Screen Neg (NEG) Urine Amphetamine/Methamphetamine Neg (NEG) Urine Benzodiazepines Screen Neg (NEG) Urine Cocaine Screen Neg (NEG) Urine Cannabinoids Screen Neg (NEG) Ethyl Alcohol Level < 10 mg/dL (0-10) Urine Ethyl Alcohol Neg (NEG) Triglycerides Level 157 mg/dL (0-150) Cholesterol Level 135 mg/dL (0-200) LDL Cholesterol, Calculated 77 mg/dL (0-100) VLDL Cholesterol, Calculated 31 mg/dL (0-40) Non-HDL Cholesterol Calculated 108 mg/dL (0-129) HDL Cholesterol 27 mg/dL (40-60) Cholesterol/HDL Ratio 5.0 Test 06/22/18 07:00 06/22/18 12:50 06/22/18 17:14 Glucose (Fingerstick) 110 mg/dL (70-99) 121 mg/dL (70-99) 142 mg/dL (70-99) DOROTHY PAIZ MD Jun 22, 2018 19:41
[2018-06-22] MEDS: LORazepam 1 MG TABLET PO PRN (20:53)
[2018-06-22] MEDS: SIMVASTATIN 5 MG TABLET. PO SCH (20:53)
--- NOTE | 2018-06-22 23:33 | NUR ---
Patient restless, when asked if she is in pain she nods her head yes. due to orders for 1 or 2 hydrocodone, 2nd pill given at this time. patient blood sugar rechecked and dropped to 62 from previous 77, at which time 1 apple juice was given, will give 2 apple juices and offer ice cream, will check BG again in 1 hour.
[2018-06-22] MEDS ORDERED: HYDR12.58 PO (23:58)
[2018-06-22] MEDS ORDERED: OMEP20TA63 PO (23:59)
[2018-06-22] MEDS ORDERED: CETI10TA22 PO (23:59)
[2018-06-23] MEDS ORDERED: DEXTROSE 50% 25 GM / 50ML DISP.SYRIN. IV ONE (00:30)
[2018-06-23 03:00] VITALS: BP 136/53
[2018-06-23] MEDS: LEVOTHYROXINE 100 MCG TABLET PO SCH (06:08)
[2018-06-23 07:00] VITALS: BP 179/71
--- NOTE | 2018-06-23 07:52 | PDOC ---
PROGRESS NOTES Chief Complaint Chief Complaint A/P: Aphasia - based on CT head likely has a large left parietal and temporal CVA with receptive and expressive aphasia, seems to be feeling her right hand as though there is sensation loss. Does not follow commands at all. ASA, statin, Neurology consultation. 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 PT/OT/EPIC PROFESSIONAL Hypokalemia - will replace, check mag Bilirubin elevated - will start bowel regimen HTN - restart home meds, add amlodipine DM2 - cont oral meds, add sliding scale Hypothyroidism - cont levothyroxine FEN - NPO pending EPIC PROFESSIONAL evaluation PPX - Lovenox FULL CODE Inpatient for acute CVA, will need rehab services on d/c, inpatient likely 2 midnights History of Present Illness History of Present Illness Ms Alford is a 68yo F w/ PMHx HTN, DM2, hypothyroidism who presents with aphasia noted by her son this morning. Last seen normal Tuesday night. She makes meaningful eye contact, does not appropriately follow commands, moves all extremities. No recent trauma or illness. She was writing "gibberish" according to her son as well and was very concerning. Came to hospital for further care. Potassium 3.2, Na 133 EKG to ak showed NSR at 61bpm, NO ST elevation, baseline artifact noted to V5-V6 CT revealed wedge shaped hypodensity in left MCA territory parietal and temporal lobes, MRI confirmed. Seen by PT, ambulating well. Seen by OT, unable to follow any commands, has facial recognition, but no object recognition. Needs prompting even to use the restroom and to eat. She is verbalizing today, saying no. Plan: BP control, IV vasotec prn. Glycemic control Needs skilled services on D/c, does not appear she will be able to manage without 24/7 care currently, will consult Vitals Vitals Vital Signs Date Time Temp Pulse Resp B/P (MAP) Pulse Ox O2 Delivery O2 Flow Rate FiO2 06/23/18 05:15 Room Air 06/23/18 03:00 97.9 60 16 136/53 (80) 99 97.9 Physical Exam General: No acute distress, Other (Does not follow commands) Abdomen: Normal bowel sounds, Soft, No tenderness, No hepatosplenomegaly, No masses Extremities: No clubbing, No cyanosis, No edema, Normal pulses, No tenderness/ swelling Skin: No rashes, No breakdown, No significant lesion Labs LABS Laboratory Tests Test 06/22/18 12:50 06/22/18 17:14 06/22/18 20:57 06/22/18 23:29 Glucose (Fingerstick) 121 mg/dL (70-99) 142 mg/dL (70-99) 77 mg/dL (70-99) 62 mg/dL (70-99) Test 06/23/18 00:36 06/23/18 03:06 Glucose (Fingerstick) 144 mg/dL (70-99) 114 mg/dL (70-99) Assessment and Plan Assessmemt and Plan Problems Medical Problems: (1) Acute CVA (cerebrovascular accident) Status: Acute Comment Review of Relevant I have reviewed the following items samantha (where applicable) has been applied. Labs Laboratory Tests Test 06/21/18 21:51 06/21/18 22:05 06/22/18 02:30 06/22/18 05:25 Glucose (Fingerstick) 98 mg/dL (70-99) White Blood Count 5.2 x10^3/uL (4.0-11.0) Red Blood Count 3.86 x10^6/uL (3.50-5.40) Hemoglobin 12.5 g/dL (12.0-15.5) Hematocrit 36.3 % (36.0-47.0) Mean Corpuscular Volume 94 fL (79-100) Mean Corpuscular Hemoglobin 32 pg (25-35) Mean Corpuscular Hemoglobin Concent 34 g/dL (31-37) Red Cell Distribution Width 13.9 % (11.5-14.5) Platelet Count 134 x10^3/uL (140-400) Neutrophils (%) (Auto) 51 % (31-73) Lymphocytes (%) (Auto) 39 % (24-48) Monocytes (%) (Auto) 8 % (0-9) Eosinophils (%) (Auto) 1 % (0-3) Basophils (%) (Auto) 1 % (0-3) Neutrophils # (Auto) 2.6 x10^3uL (1.8-7.7) Lymphocytes # (Auto) 2.0 x10^3/uL (1.0-4.8) Monocytes # (Auto) 0.4 x10^3/uL (0.0-1.1) Eosinophils # (Auto) 0.1 x10^3/uL (0.0-0.7) Basophils # (Auto) 0.1 x10^3/uL (0.0-0.2) Prothrombin Time 13.3 SEC (11.7-14.0) Prothromb Time International Ratio 1.0 (0.8-1.1) Activated Partial Thromboplast Time 28 SEC (24-38) Urine Collection Type U cath Urine Color Yellow Urine Clarity Clear Urine pH 6.5 Urine Specific Streeter <=1.005 Urine Protein Negative mg/dL (NEG-TRACE) Urine Glucose (UA) Negative mg/dL (NEG) Urine Ketones (Stick) Negative mg/dL (NEG) Urine Blood Negative (NEG) Urine Nitrite Negative (NEG) Urine Bilirubin Negative (NEG) Urine Urobilinogen Dipstick 4.0 mg/dL (0.2 mg/dL) Urine Leukocyte Esterase Negative (NEG) Urine RBC 0 /HPF (0-2) Urine WBC 0 /HPF (0-4) Urine Squamous Epithelial Cells Few /LPF Urine Bacteria 0 /HPF (0-FEW) Sodium Level 133 mmol/L (136-145) Potassium Level 3.2 mmol/L (3.5-5.1) Chloride Level 94 mmol/L (98-107) Carbon Dioxide Level 25 mmol/L (21-32) Anion Gap 14 (6-14) Blood Urea Nitrogen 16 mg/dL (7-20) Creatinine 1.1 mg/dL (0.6-1.0) Estimated GFR (Cockcroft-Gault) 49.5 BUN/Creatinine Ratio 15 (6-20) Glucose Level 100 mg/dL (70-99) Lactic Acid Level 1.8 mmol/L (0.4-2.0) Calcium Level 8.9 mg/dL (8.5-10.1) Magnesium Level 1.3 mg/dL (1.8-2.4) Total Bilirubin 1.5 mg/dL (0.2-1.0) Aspartate Amino Transf (AST/SGOT) 30 U/L (15-37) Alanine Aminotransferase (ALT/SGPT) 27 U/L (14-59) Alkaline Phosphatase 167 U/L (46-116) Ammonia 11 mcmol/L (11-34) Creatine Kinase 55 U/L (26-192) Creatine Kinase MB (Mass) 0.6 ng/mL (0.0-3.6) Creatine Kinase MB Relative Index % (0-4) Troponin I Quantitative < 0.017 ng/mL (0.000-0.055) 0.026 ng/mL (0.000-0.055) 0.023 ng/mL (0.000-0.055) Total Protein 8.2 g/dL (6.4-8.2) Albumin 3.7 g/dL (3.4-5.0) Albumin/Globulin Ratio 0.8 (1.0-1.7) Urine Opiates Screen Neg (NEG) Urine Methadone Screen Neg (NEG) Urine Barbiturates Neg (NEG) Urine Phencyclidine Screen Neg (NEG) Urine Amphetamine/Methamphetamine Neg (NEG) Urine Benzodiazepines Screen Neg (NEG) Urine Cocaine Screen Neg (NEG) Urine Cannabinoids Screen Neg (NEG) Ethyl Alcohol Level < 10 mg/dL (0-10) Urine Ethyl Alcohol Neg (NEG) Triglycerides Level 157 mg/dL (0-150) Cholesterol Level 135 mg/dL (0-200) LDL Cholesterol, Calculated 77 mg/dL (0-100) VLDL Cholesterol, Calculated 31 mg/dL (0-40) Non-HDL Cholesterol Calculated 108 mg/dL (0-129) HDL Cholesterol 27 mg/dL (40-60) Cholesterol/HDL Ratio 5.0 Test 06/22/18 07:00 06/22/18 12:50 06/22/18 17:14 06/22/18 20:57 Glucose (Fingerstick) 110 mg/dL (70-99) 121 mg/dL (70-99) 142 mg/dL (70-99) 77 mg/dL (70-99) Test 06/22/18 23:29 06/23/18 00:36 06/23/18 03:06 Glucose (Fingerstick) 62 mg/dL (70-99) 144 mg/dL (70-99) 114 mg/dL (70-99) Laboratory Tests Test 06/22/18 12:50 06/22/18 17:14 06/22/18 20:57 06/22/18 23:29 Glucose (Fingerstick) 121 mg/dL (70-99) 142 mg/dL (70-99) 77 mg/dL (70-99) 62 mg/dL (70-99) Test 06/23/18 00:36 06/23/18 03:06 Glucose (Fingerstick) 144 mg/dL (70-99) 114 mg/dL (70-99) Medications Current Medications Sodium Chloride 1,000 ml @ 1,000 mls/hr 1X ONCE IV Last administered on 23:53; Start 06/21/18 at 22:00; Stop 06/21/18 at 22:59; Status DC Aspirin (Aspirin) 300 mg 1X ONCE SD Last administered on 06/21/18at 23:52; Start 06/21/18 at 23:30; Stop 06/21/18 at 23:31; Status DC Ondansetron HCl (Zofran) 4 mg PRN Q8HRS PRN IV NAUSEA/VOMITING; Start 06/21/18 at 23:30; Stop 06/22/18 at 23:29; Status DC Insulin Human Lispro (HumaLOG) 0-5 UNITS TIDWMEALS SQ ; Start 06/22/18 at 08:00 Dextrose (Dextrose 50%-Water Syringe) 12.5 gm PRN Q15MIN PRN IV SEE COMMENTS; Start 06/21/18 at 23:30 Aspirin (Genesis Aspirin) 325 mg DAILYWBKFT PO Last administered on 06/22/18at 16: 09; Start 06/22/18 at 11:00 Simvastatin (Zocor) 5 mg QHS PO Last administered on 06/22/18at 20:53; Start at 21:00 Acetaminophen/ Hydrocodone Bitart (Lortab 5/325) 1 tab PRN Q6HRS PRN PO MILD PAIN Last administered on 06/22/18at 23:26; Start 06/22/18 at 15:00 Levothyroxine Sodium (Synthroid) 100 mcg DAILY07 PO Last administered on at 06:08; Start 06/22/18 at 16:00 Lisinopril (Prinivil) 40 mg DAILY PO Last administered on 06/22/18at 16:11; Start 06/22/18 at 16:00 Lorazepam (Ativan) 1 mg TID PRN PRN PO ANXIETY / AGITATION Last administered on 06/22/18at 20:53; Start 06/22/18 at 15:00 Atenolol (Tenormin) 100 mg DAILY PO ; Start 06/22/18 at 16:00; Stop 06/22/18 at 16:00; Status DC Non-Formulary Medication (Glipizide/ Metformin Hcl (Glipizide-Metformin 2.5-500 Mg)) 1 each DAILYWSUP PO ; Start 06/22/18 at 17:00; Status UNV Non-Formulary Medication (Glipizide/ Metformin Hcl (Glipizide-Metformin 2.5-500 Mg)) 2 each DAILY PO ; Start 06/23/18 at 09:00; Status UNV Non-Formulary Medication (Metformin Hcl (Metformin Hcl Er)) 500 mg DAILYWBKFT PO ; Start 06/23/18 at 08:00; Status UNV Acetaminophen/ Hydrocodone Bitart (Lortab 5/325) 2 tab PRN Q6HRS PRN PO MODERATE-SEVERE PAIN Last administered on 06/23/18at 04:15; Start 06/22/18 at 15: 00 Amlodipine Besylate (Norvasc) 5 mg DAILY PO Last administered on 06/22/18at 16: 10; Start 06/22/18 at 16:00 Metformin HCl (Glucophage) 1,000 mg DAILYWBKFT PO ; Start 06/23/18 at 08:00 Metformin HCl (Glucophage) 500 mg DAILYWSUP PO Last administered on 06/22/18at 18:00; Start 06/22/18 at 17:00 Glipizide (Glucotrol) 5 mg DAILYWBKFT PO ; Start 06/23/18 at 08:00; Status Future Hold Glipizide (Glucotrol) 2.5 mg DAILYWSUP PO Last administered on 06/22/18at 18:01 ; Start 06/22/18 at 17:00 Dextrose (Dextrose 50%-Water Syringe) 25 gm 1X ONCE IV ; Start 06/23/18 at 00: 30; Stop 06/23/18 at 00:31; Status DC Active Scripts Active Reported Zyrtec (Cetirizine Hcl) 10 Mg Tablet 10 Mg PO DAILY PRN Prilosec Otc (Omeprazole Magnesium) 20 Mg Tablet.dr 20 Mg PO DAILY Hydrochlorothiazide Tablet (Hydrochlorothiazide) 12.5 Mg Tablet 12.5 Mg PO DAILY Lorazepam 1 Mg Tablet 1 Tab PO TID PRN PRN [place] 5-325 Tablet (Acetaminophen/Hydrocodone Bitart) 1 Each Tablet 1-2 Tab PO PRN Q4-6HRS PRN Glipizide-Metformin 2.5-500 Mg (Glipizide/Metformin Hcl) 1 Each Tablet 1 Each PO DAILYWSUP Glipizide-Metformin 2.5-500 Mg (Glipizide/Metformin Hcl) 1 Each Tablet 2 Each PO DAILY Atenolol 100 Mg Tablet 1 Tab PO DAILY Levothyroxine Sodium 100 Mcg Tablet 1 Tab PO DAILY Metformin Hcl Er (Metformin Hcl) 500 Mg Tab.er.24h 500 Mg PO DAILYWBKFT Lisinopril 40 Mg Tablet 1 Tab PO DAILY Vitals/I & O Vital Sign - Last 24 Hours 06/22/18 06/22/18 06/22/18 06/22/18 11:59 15:00 16:10 16:11 Temp 97.4 97.8 97.4 97.8 Pulse 57 59 59 60 Resp 18 18 B/P (MAP) 182/79 (113) 174/82 (112) 174/82 174/82 Pulse Ox 100 97 O2 Delivery Room Air Room Air 06/22/18 06/22/18 06/22/18 06/23/18 19:00 23:00 23:26 00:26 Temp 98.0 97.6 98.0 97.6 Pulse 56 53 Resp 16 16 B/P (MAP) 131/50 (77) 156/65 (95) Pulse Ox 98 99 O2 Delivery Room Air Room Air Room Air Room Air 06/23/18 06/23/18 06/23/18 03:00 04:15 05:15 Temp 97.9 97.9 Pulse 60 Resp 16 B/P (MAP) 136/53 (80) Pulse Ox 99 O2 Delivery Room Air Room Air Room Air Intake and Output 06/22/18 06/22/18 06/23/18 14:59 22:59 06:59 Intake Total 0 ml 340 ml 430 ml Balance 0 ml 340 ml 430 ml Images The left ventricle is normal size. The left ventricular systolic function is normal and the ejection fraction is within normal range. The Ejection Fraction is 55-60%. The interatrial septum is intact with no evidence for an atrial septal defect or patent foramen ovale as noted on 2-D or Doppler imaging. Injection of bubbles documented no interatrial shunt. There is no significant aortic valvular stenosis. Doppler and Color Flow revealed mild aortic regurgitation. Doppler and Color-flow revealed trace to mild mitral regurgitation. Doppler and Color Flow revealed no tricuspid valve regurgitation noted. PÉREZ DEE MD Jun 23, 2018 07:52
[2018-06-23] MEDS: INSULIN LISPRO 300 UNITS/3 ML INSULN.PEN. SQ SCH ×3 (08:00→17:31)
[2018-06-23] MEDS ORDERED: glipiZIDE 5 MG TABLET PO SCH (08:00)
[2018-06-23] MEDS ORDERED: METFORMIN HCL PO SCH (09:00)
[2018-06-23] MEDS ORDERED: GLIPIZIDE PO SCH (09:00)
[2018-06-23] MEDS: metFORMIN 500 MG TABLET PO SCH ×2 (09:41→17:36)
[2018-06-23] MEDS: LISINOPRIL 20 MG TABLET PO SCH (09:41)
[2018-06-23] MEDS: ASPIRIN 325 MG TABLET PO SCH (09:42)
[2018-06-23] MEDS: amLODIPine BESYLATE 5 MG TABLET PO SCH (09:42)
--- NOTE | 2018-06-23 12:28 | NUR ---
SW following pt for anticipated dc needs. Chart reviewed. Discussed with RN and pt's daughter, Lena, phone: [phone]. Pt was evaluated by pt and does not have PT needs. Daughter reports pt is not able to talk or differentiate between hot/cold. Daughter is worried as pt lives at home alone about pt going home. Daughter reports her son stays with pt as well but he is usually at work. SW discussed SNF, LTC and insurance coverage. ST recommends rehab and OT evaluation still pending. Pt's family wants to proceed with SNU evaluation but are aware insurance might have to approve SNF stay. SW discussed it might be a challenge as pt is not showing any deficit physically. Daughter verbalized understanding but wants to try as pt will definitely need ST. Spoke with OT Lorraine who will be evaluating pt today. Daughter agreeable with [facility] and [facility]. SW will await for OT recommendation and proceed accordingly. SANYA ELDER.
--- NOTE | 2018-06-23 14:01 | PDOC ---
PROGRESS NOTES Assessment Assessment Subacute large left parietal and temporal infract. Cerebral edema surrounding infarct areas. Metabolic encephalopathy. Mixed aphasia. HTN. HLD. DM. Over weight. RECOMMENDATIONS/PLAN: Continue ASA 325 mg daily. Continue Zocor HS. Swallow test, she passed. FU with PCP. FU with Neurology after 1 month. Discussed in all detail with her son, daughter, son-in-law, [id number] and showed them MRI findings on 06/22/18. Discussed with her daughter again at bedside on 06/23/18. Carotid A US + Doppler: No high grade stenosis. Echo: Unremarkable. HISTORY OF THE PRESENT ILLNESS: 68-y-old female patient with Hx of HTN, HLD, DM was last known normal in the morning of 06/20/18. She was noted mental status changes with aphasia that evening, but did not search medical attention until next day to come to the ER on 06/21/18. Her HCT was abnormal for stroke but the age was undetermined. MRI showed large subacute infract. PAST MEDICAL HISTORY: HTN. HLD. DM. Over weight. PAST SURGERY HISTORY: No major surgery recently. ALLERGY: Unknown MEDICATIONS: Refer to [facility] FAMILY HISTORY: Non contributory. SOCIAL HISTORY: Lives at home with her grandson. Denies current smoking, drinking, and illicit drug use. REVIEW OF SYSTEMS: Constitutional: No malnutrition, weight loss, cachexia. Head: No traumatic brain or head injury. Skin: No edema, or rash. Ear: No infection. Eyes: No vision loss or color blindness. Nose: No bleeding or purulent discharges. Hearing: Hearing decrease. Neck: No injury. Breast: No history of cancer, masses,or discharges. Cardiac: HTN, HLD. Pulmonary: No COPD. GI: No GI ulcer, GI bleeding. Urinary/genital: UTI. Endocrinologic: Diabetes Mellitus? Skeletomuscular: No muscular atrophy, deformity. Neurological: see HP. Psychiatric: Denies drug use/abuse. Otherwise, not [id number] review of systems. PHYSICAL EXAMINATION: General appearance is in subacute distress. HEENT: Normocephalic and nontraumatic. Eyes, nose, ears, and throat are unremarkable. Neck is supple. No lymphadenopathy. No crepitus. Cardiovascular: S1, S2, regular rate and rhythm. Pulmonary: Clear to auscultation bilaterally. Abdomen: Bowel sounds are positive. Extremities: No rash, lesions, or edema. No restriction of range of motion NEUROLOGICAL EXAMINATION: Awake. Able to understand and answer some questions. Mixed aphasia. Not fully oriented to time, but knew place and person. PERRL. EOMI. CN: no focal findings. Muscle tone: within normal. Muscle strength: 5- DTR: 2- Plantar reflex: Neutral response bilaterally Gait: not examined in bed. Sensory exam: seemed decreased in right UE side, but improved on 06/23/18. Not cerebellar signs elicited. F-T-N test fine. Objective Objective Vital Signs Date Time Temp Pulse Resp B/P (MAP) Pulse Ox O2 Delivery O2 Flow Rate FiO2 06/23/18 09:42 52 179/71 06/23/18 07:00 97.8 16 98 Room Air 97.8 Intake and Output 06/23/18 07:00 Intake Total 770 ml Balance 770 ml Intake Oral 770 ml # Voids 1 Vitals Signs Vitals VS - Last 72 Hours, by Label Date Time Temp Pulse Resp B/P (MAP) Pulse Ox O2 Delivery O2 Flow Rate FiO2 06/23/18 09:42 52 179/71 06/23/18 09:41 52 179/71 06/23/18 07:00 97.8 52 16 179/71 (107) 98 Room Air 97.8 06/23/18 05:15 Room Air 06/23/18 04:15 Room Air 06/23/18 03:00 97.9 60 16 136/53 (80) 99 Room Air 97.9 06/23/18 00:26 Room Air 06/22/18 23:26 Room Air 06/22/18 23:00 97.6 53 16 156/65 (95) 99 Room Air 97.6 06/22/18 19:00 98.0 56 16 131/50 (77) 98 Room Air 98.0 06/22/18 16:11 60 174/82 06/22/18 16:10 59 174/82 06/22/18 15:00 97.8 59 18 174/82 (112) 97 Room Air 97.8 06/22/18 11:59 97.4 57 18 182/79 (113) 100 Room Air 97.4 06/22/18 07:05 98.6 63 16 146/86 (106) 98 Room Air 98.6 Laboratory Laboratory Laboratory Tests Test 06/22/18 17:14 2/21/19 20:57 06/22/18 23:29 06/23/18 00:36 Glucose (Fingerstick) 142 mg/dL (70-99) 77 mg/dL (70-99) 62 mg/dL (70-99) 144 mg/dL (70-99) Test 06/23/18 03:06 Glucose (Fingerstick) 114 mg/dL (70-99) Medication Medications Current Medications Acetaminophen/ Hydrocodone Bitart (Lortab 5/325) 1 tab PRN Q6HRS PRN PO MILD PAIN Last administered on 06/22/18at 23:26; Start 06/22/18 at 15:00 Acetaminophen/ Hydrocodone Bitart (Lortab 5/325) 2 tab PRN Q6HRS PRN PO MODERATE-SEVERE PAIN Last administered on 06/23/18at 04:15; Start 06/22/18 at 15: 00 Amlodipine Besylate (Norvasc) 5 mg DAILY PO Last administered on 06/23/18at 09: 42; Start 06/22/18 at 16:00 Atenolol (Tenormin) 100 mg DAILY PO ; Start 06/22/18 at 16:00; Stop 06/22/18 at 16:00; Status DC Dextrose (Dextrose 50%-Water Syringe) 25 gm 1X ONCE IV ; Start 06/23/18 at 00: 30; Stop 06/23/18 at 00:31; Status DC Glipizide (Glucotrol) 2.5 mg DAILYWSUP PO Last administered on 06/22/18at 18:01 ; Start 06/22/18 at 17:00 Glipizide (Glucotrol) 5 mg DAILYWBKFT PO ; Start 06/23/18 at 08:00; Status Future Hold Levothyroxine Sodium (Synthroid) 100 mcg DAILY07 PO Last administered on at 06:08; Start 06/22/18 at 16:00 Lisinopril (Prinivil) 40 mg DAILY PO Last administered on 06/23/18at 09:41; Start 06/22/18 at 16:00 Lorazepam (Ativan) 1 mg TID PRN PRN PO ANXIETY / AGITATION Last administered on 06/22/18at 20:53; Start 06/22/18 at 15:00 Metformin HCl (Glucophage) 500 mg DAILYWSUP PO Last administered on 06/22/18at 18:00; Start 06/22/18 at 17:00 Metformin HCl (Glucophage) 1,000 mg DAILYWBKFT PO Last administered on at 09:41; Start 06/23/18 at 08:00 Non-Formulary Medication (Glipizide/ Metformin Hcl (Glipizide-Metformin 2.5-500 Mg)) 1 each DAILYWSUP PO ; Start 06/22/18 at 17:00; Status UNV Non-Formulary Medication (Glipizide/ Metformin Hcl (Glipizide-Metformin 2.5-500 Mg)) 2 each DAILY PO ; Start 06/23/18 at 09:00; Status UNV Non-Formulary Medication (Metformin Hcl (Metformin Hcl Er)) 500 mg DAILYWBKFT PO ; Start 06/23/18 at 08:00; Status UNV Simvastatin (Zocor) 5 mg QHS PO Last administered on 06/22/18at 20:53; Start at 21:00 Comment Review of Relevant I have reviewed the following items samantha (where applicable) has been applied. DOROTHY PAIZ MD Jun 23, 2018 14:01
[2018-06-23 15:00] VITALS: BP 145/65
--- NOTE | 2018-06-23 15:54 | NUR ---
SW phoned and faxed referral to [facility] and [facility]. Pt admission and acceptance pending. Will continue to follow.
--- NOTE | 2018-06-23 15:59 | NUR ---
Communication evaluation completed. Please refer to full report for additional information. Severe expressive, receptive aphasia post left parietal and temporal infract. Possible apraxia as well, however unable to fully assess d/t limited verbal as well as language deficits that impair her ability to understand, repeat and fully participate apraxia assessment. Occasional spontaneous single and 2 word productions that are appropriate and intelligible w/o evidence of dysarthria. 2 attempts to verbalize in response during evaluation appeared apraxic in nature. Pt demonstrates frustration both w/ difficulty understanding as well as failed attempts to communicate. Pt currently w/ unreliable yes/no (typically nods), inability to imitate most actions, inability to repeat words, as well as inability to match or point to pictures, write or read. Pt presented w/ a Bedside Aphasia Score of 11 on Western Aphasia Battery-R (bedside form) w/ 100=no impairment indicating severe communication deficit. Impressions: Severe receptive/expressive aphasia w/ suspected apraxia limiting functional communication. Pt is at safety risk for return home by self d/t severity of communication impairment making it impossible for her to request or seek help independently. Recommendations: Communication therapy at hospital and rehab.
[2018-06-23] MEDS: glipiZIDE 5 MG TABLET PO SCH (17:00)
[2018-06-23 20:00] VITALS: BP 193/98
[2018-06-23] MEDS: SIMVASTATIN 5 MG TABLET. PO SCH (21:01)
[2018-06-23] MEDS: LORazepam 1 MG TABLET PO PRN (21:01)
[2018-06-23 21:05] VITALS: BP 141/77
--- NOTE | 2018-06-23 22:00 | NUR ---
Rapid response called at 2004 for seizure activity while pt sitting in chair. Seizure lasted approx one min. Pt assisted back to bed; vitals stable. Call placed to Dr Berg at [phone] with order for PRN Ativan. Dr Nails from neuro returned call at [phone] with order for Keppra. Pt back to baseline within 30 mins of seizure. Currently resting in bed with family at bedside. Will continue to monitor.
[2018-06-23] MEDS ORDERED: levETIRAcetam 500 MG TABLET PO ONE (22:15)
[2018-06-23 23:00] VITALS: BP 147/77
[2018-06-24 04:00] VITALS: BP 129/66
[2018-06-24] MEDS: LEVOTHYROXINE 100 MCG TABLET PO SCH (06:16)
[2018-06-24 07:00] VITALS: BP 112/70
[2018-06-24] MEDS: glipiZIDE 5 MG TABLET PO SCH (07:18)
[2018-06-24] MEDS: INSULIN LISPRO 300 UNITS/3 ML INSULN.PEN. SQ SCH ×3 (07:48→16:53)
[2018-06-24] MEDS: ASPIRIN 325 MG TABLET PO SCH (07:49)
[2018-06-24] MEDS: metFORMIN 500 MG TABLET PO SCH ×2 (07:49→16:49)
[2018-06-24] MEDS: levETIRAcetam 500 MG TABLET PO SCH ×2 (07:50→20:05)
[2018-06-24] MEDS: amLODIPine BESYLATE 5 MG TABLET PO SCH (07:50)
[2018-06-24] MEDS: LISINOPRIL 20 MG TABLET PO SCH (07:50)
[2018-06-24 11:00] VITALS: BP 139/65
--- NOTE | 2018-06-24 12:21 | RAD ---
PQRS Compliance statement: One or more of the following individualized dose reduction techniques were utilized for this examination: 1. Automated exposure control. 2. Adjustment of the mA and/or kV according to patient size. 3. Use of iterative reconstruction technique. Indication:SEIZURE TECHNIQUE: CT head without IV contrast COMPARISON:06/21/2018 CT and MRI brain from 06/22/2018 FINDINGS: Redemonstrated is a moderate-sized to large area of low-attenuation in the left temporoparietal lobe consistent with infarct seen on most recent MRI. No pathologic extra-axial or intra-axial fluid collection. The ventricles and basal cisterns are within normal limits. No acute intracranial bleed. Orbits are within normal limits. No suspicious calvarial lesion. Visualized paranasal sinuses and mastoid air cells are clear. IMPRESSION: 1. Evidence of left temporoparietal lobe infarct also seen on most recent MRI. 2. No acute intracranial bleed. Electronically signed by: Bertin Patrick DO (06/24/2018 12:18 PM) [facility]
[2018-06-24 12:45] LABS: CALCIUM 9.3 mg/dL (8.5-10.1); CREATININE 1.1 mg/dL (0.6-1.0); GFR 49.5; MAGNESIUM 1.6 mg/dL (1.8-2.4); POTASSIUM 3.3 mmol/L (3.5-5.1)
--- NOTE | 2018-06-24 13:23 | PDOC ---
PROGRESS NOTES Chief Complaint Chief Complaint A/P: Aphasia - based on CT head likely has a large left parietal and temporal CVA with receptive and expressive aphasia, seems to be feeling her right hand as though there is sensation loss. Does not follow commands at all. ASA, statin, Neurology consultation. 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 Last seen normal Tuesday night. She makes meaningful eye contact, does not appropriately follow commands, moves all extremities. No recent trauma or illness. She was writing "gibberish" according to her son as well and was very concerning. Came to hospital for further care. Potassium 3.2, Na 133 EKG to ma showed NSR at 61bpm, NO ST elevation, baseline artifact noted to V5-V6 CT revealed wedge shaped hypodensity in left MCA territory parietal and temporal lobes, MRI confirmed. Seen by PT, ambulating well. Seen by OT, unable to follow any commands, has facial recognition, but no object recognition. Needs prompting even to use the restroom and to eat. She is verbalizing today, saying no. K 3.2 and mag 1.6 Plan: BP control, IV vasotec prn. Glycemic control Replace K and mag Needs skilled services on D/c, does not appear she will be able to manage without 24/7 care currently, will consult Vitals Vitals Vital Signs Date Time Temp Pulse Resp B/P (MAP) Pulse Ox O2 Delivery O2 Flow Rate FiO2 06/24/18 11:00 97.5 61 16 139/65 (89) 97 Room Air 97.5 06/23/18 20:00 2.0 Physical Exam General: No acute distress, Other (Does not follow commands) Heart: Regular rate, Normal S1, Normal S2 Abdomen: Normal bowel sounds, Soft, No tenderness, No hepatosplenomegaly, No masses Extremities: No clubbing, No cyanosis, No edema, Normal pulses, No tenderness/ swelling Skin: No rashes, No breakdown, No significant lesion Labs LABS Laboratory Tests Test 06/23/18 17:30 06/23/18 20:11 06/24/18 07:02 06/24/18 11:16 Glucose (Fingerstick) 138 mg/dL (70-99) 125 mg/dL (70-99) 116 mg/dL (70-99) 155 mg/dL (70-99) Test 06/24/18 12:20 Sodium Level 142 mmol/L (136-145) Potassium Level 3.3 mmol/L (3.5-5.1) Chloride Level 102 mmol/L (98-107) Carbon Dioxide Level 27 mmol/L (21-32) Anion Gap 13 (6-14) Blood Urea Nitrogen 10 mg/dL (7-20) Creatinine 1.1 mg/dL (0.6-1.0) Estimated GFR (Cockcroft-Gault) 49.5 Glucose Level 141 mg/dL (70-99) Calcium Level 9.3 mg/dL (8.5-10.1) Magnesium Level 1.6 mg/dL (1.8-2.4) Assessment and Plan Assessmemt and Plan Problems Medical Problems: (1) Acute CVA (cerebrovascular accident) Status: Acute Comment Review of Relevant I have reviewed the following items samantha (where applicable) has been applied. Labs Laboratory Tests Test 06/22/18 17:14 06/22/18 20:57 06/22/18 23:29 06/23/18 00:36 Glucose (Fingerstick) 142 mg/dL (70-99) 77 mg/dL (70-99) 62 mg/dL (70-99) 144 mg/dL (70-99) Test 06/23/18 03:06 06/23/18 17:30 06/23/18 20:11 06/24/18 07:02 Glucose (Fingerstick) 114 mg/dL (70-99) 138 mg/dL (70-99) 125 mg/dL (70-99) 116 mg/dL (70-99) Test 06/24/18 11:16 06/24/18 12:20 Glucose (Fingerstick) 155 mg/dL (70-99) Sodium Level 142 mmol/L (136-145) Potassium Level 3.3 mmol/L (3.5-5.1) Chloride Level 102 mmol/L (98-107) Carbon Dioxide Level 27 mmol/L (21-32) Anion Gap 13 (6-14) Blood Urea Nitrogen 10 mg/dL (7-20) Creatinine 1.1 mg/dL (0.6-1.0) Estimated GFR (Cockcroft-Gault) 49.5 Glucose Level 141 mg/dL (70-99) Calcium Level 9.3 mg/dL (8.5-10.1) Magnesium Level 1.6 mg/dL (1.8-2.4) Laboratory Tests Test 06/23/18 17:30 06/23/18 20:11 06/24/18 07:02 06/24/18 11:16 Glucose (Fingerstick) 138 mg/dL (70-99) 125 mg/dL (70-99) 116 mg/dL (70-99) 155 mg/dL (70-99) Test 06/24/18 12:20 Sodium Level 142 mmol/L (136-145) Potassium Level 3.3 mmol/L (3.5-5.1) Chloride Level 102 mmol/L (98-107) Carbon Dioxide Level 27 mmol/L (21-32) Anion Gap 13 (6-14) Blood Urea Nitrogen 10 mg/dL (7-20) Creatinine 1.1 mg/dL (0.6-1.0) Estimated GFR (Cockcroft-Gault) 49.5 Glucose Level 141 mg/dL (70-99) Calcium Level 9.3 mg/dL (8.5-10.1) Magnesium Level 1.6 mg/dL (1.8-2.4) Medications Current Medications Sodium Chloride 1,000 ml @ 1,000 mls/hr 1X ONCE IV Last administered on at 23:53; Start 06/21/18 at 22:00; Stop 06/21/18 at 22:59; Status DC Aspirin (Aspirin) 300 mg 1X ONCE LA Last administered on 06/21/18at 23:52; Start 06/21/18 at 23:30; Stop 06/21/18 at 23:31; Status DC Ondansetron HCl (Zofran) 4 mg PRN Q8HRS PRN IV NAUSEA/VOMITING; Start 06/21/18 at 23:30; Stop 06/22/18 at 23:29; Status DC Insulin Human Lispro (HumaLOG) 0-5 UNITS TIDWMEALS SQ ; Start 06/22/18 at 08:00 Dextrose (Dextrose 50%-Water Syringe) 12.5 gm PRN Q15MIN PRN IV SEE COMMENTS; Start 06/21/18 at 23:30 Aspirin (Genesis Aspirin) 325 mg DAILYWBKFT PO Last administered on 06/24/18at 07: 49; Start 06/22/18 at 11:00 Simvastatin (Zocor) 5 mg QHS PO Last administered on 06/23/18at 21:01; Start at 21:00 Acetaminophen/ Hydrocodone Bitart (Lortab 5/325) 1 tab PRN Q6HRS PRN PO MILD PAIN Last administered on 06/22/18at 23:26; Start 06/22/18 at 15:00 Levothyroxine Sodium (Synthroid) 100 mcg DAILY07 PO Last administered on at 06:16; Start 06/22/18 at 16:00 Lisinopril (Prinivil) 40 mg DAILY PO Last administered on 06/24/18at 07:50; Start 06/22/18 at 16:00 Lorazepam (Ativan) 1 mg TID PRN PRN PO ANXIETY / AGITATION Last administered on 06/23/18at 21:01; Start 06/22/18 at 15:00 Atenolol (Tenormin) 100 mg DAILY PO ; Start 06/22/18 at 16:00; Stop 06/22/18 at 16:00; Status DC Non-Formulary Medication (Glipizide/ Metformin Hcl (Glipizide-Metformin 2.5-500 Mg)) 1 each DAILYWSUP PO ; Start 06/22/18 at 17:00; Status UNV Non-Formulary Medication (Glipizide/ Metformin Hcl (Glipizide-Metformin 2.5-500 Mg)) 2 each DAILY PO ; Start 06/23/18 at 09:00; Status UNV Non-Formulary Medication (Metformin Hcl (Metformin Hcl Er)) 500 mg DAILYWBKFT PO ; Start 06/23/18 at 08:00; Status UNV Acetaminophen/ Hydrocodone Bitart (Lortab 5/325) 2 tab PRN Q6HRS PRN PO MODERATE-SEVERE PAIN Last administered on 06/23/18at 04:15; Start 06/22/18 at 15: 00 Amlodipine Besylate (Norvasc) 5 mg DAILY PO Last administered on 06/24/18at 07: 50; Start 06/22/18 at 16:00 Metformin HCl (Glucophage) 1,000 mg DAILYWBKFT PO Last administered on at 07:49; Start 06/23/18 at 08:00 Metformin HCl (Glucophage) 500 mg DAILYWSUP PO Last administered on 06/23/18at 17:36; Start 06/22/18 at 17:00 Glipizide (Glucotrol) 5 mg DAILYWBKFT PO ; Start 06/23/18 at 08:00; Status Future Hold Glipizide (Glucotrol) 2.5 mg DAILYWSUP PO Last administered on 06/22/18at 18:01 ; Start 06/22/18 at 17:00 Dextrose (Dextrose 50%-Water Syringe) 25 gm 1X ONCE IV ; Start 06/23/18 at 00: 30; Stop 06/23/18 at 00:31; Status DC Lorazepam (Ativan) 1 mg PRN Q6HRS PRN IV ANXIETY / AGITATION; Start 06/23/18 at 20:45 Levetiracetam (Keppra) 500 mg BID PO Last administered on 06/24/18at 07:50; Start 06/24/18 at 09:00 Levetiracetam (Keppra) 1,000 mg 1X ONCE PO Last administered on 06/23/18at 22: 53; Start 06/23/18 at 22:15; Stop 06/23/18 at 22:16; Status DC Active Scripts Active Reported Zyrtec (Cetirizine Hcl) 10 Mg Tablet 10 Mg PO DAILY PRN Prilosec Otc (Omeprazole Magnesium) 20 Mg Tablet.dr 20 Mg PO DAILY Hydrochlorothiazide Tablet (Hydrochlorothiazide) 12.5 Mg Tablet 12.5 Mg PO DAILY Lorazepam 1 Mg Tablet 1 Tab PO TID PRN PRN [place] 5-325 Tablet (Acetaminophen/Hydrocodone Bitart) 1 Each Tablet 1-2 Tab PO PRN Q4-6HRS PRN Glipizide-Metformin 2.5-500 Mg (Glipizide/Metformin Hcl) 1 Each Tablet 1 Each PO DAILYWSUP Glipizide-Metformin 2.5-500 Mg (Glipizide/Metformin Hcl) 1 Each Tablet 2 Each PO DAILY Atenolol 100 Mg Tablet 1 Tab PO DAILY Levothyroxine Sodium 100 Mcg Tablet 1 Tab PO DAILY Metformin Hcl Er (Metformin Hcl) 500 Mg Tab.er.24h 500 Mg PO DAILYWBKFT Lisinopril 40 Mg Tablet 1 Tab PO DAILY Vitals/I & O Vital Sign - Last 24 Hours 06/23/18 06/23/18 06/23/18 06/23/18 15:00 19:50 20:00 21:05 Temp 98.1 98.8 98.1 98.8 Pulse 55 86 67 Resp 18 18 16 B/P (MAP) 145/65 (91) 193/98 (129) 141/77 (98) Pulse Ox 98 99 99 O2 Delivery Room Air Room Air Nasal Cannula Room Air O2 Flow Rate 2.0 06/23/18 06/24/18 06/24/18 06/24/18 23:00 04:00 07:00 07:19 Temp 98.5 97.9 97.9 98.5 97.9 97.9 Pulse 64 54 53 Resp 16 16 16 B/P (MAP) 147/77 (100) 129/66 (87) 112/70 (84) Pulse Ox 97 96 94 O2 Delivery Room Air Room Air Room Air Room Air 06/24/18 06/24/18 06/24/18 07:50 07:50 11:00 Temp 97.5 97.5 Pulse 53 53 61 Resp 16 B/P (MAP) 112/70 112/70 139/65 (89) Pulse Ox 97 O2 Delivery Room Air Intake and Output 06/23/18 06/23/18 06/24/18 14:59 22:59 06:59 Intake Total 360 ml 200 ml Balance 360 ml 200 ml PÉREZ EDE MD Jun 24, 2018 13:23
[2018-06-24] MEDS ORDERED: POTASSIUM CHLORIDE 20 MEQ TABLET.ER. PO ONE (13:30)
[2018-06-24] MEDS: MAGNESIUM OXIDE 400 MG TABLET PO SCH ×2 (13:40→20:05)
[2018-06-24] MEDS ORDERED: POTASSIUM CHLORIDE 20 MEQ/15 ML ORAL LIQUID. PO ONE (13:45)
[2018-06-24 15:00] VITALS: BP 132/90
--- NOTE | 2018-06-24 17:54 | NUR ---
Patient pulled off ekg monitor tech, refuses to keep it on, will continue to monitor.
[2018-06-24 19:16] VITALS: BP 151/73
[2018-06-24] MEDS: SIMVASTATIN 5 MG TABLET. PO SCH (20:05)
[2018-06-24] MEDS: CETIRIZINE HCL 10 MG TABLET. PO SCH (20:06)
[2018-06-24] MEDS: ENOXAPARIN 40 MG/0.4 ML SYRINGE. SQ SCH (20:07)
[2018-06-24 23:28] VITALS: BP 192/83
[2018-06-24] MEDS: hydrALAZINE 25 MG TABLET PO PRN (23:34)
[2018-06-25] VITALS (7 sets, daily range): BP systolic 107–206; BP diastolic 61–99
[2018-06-25] MEDS: LEVOTHYROXINE 100 MCG TABLET PO SCH (06:24)
[2018-06-25] MEDS: HYDROcodone/APAP 5/325MG 1 TAB TABLET PO PRN (06:25)
[2018-06-25] MEDS: INSULIN LISPRO 300 UNITS/3 ML INSULN.PEN. SQ SCH ×3 (07:32→16:41)
--- NOTE | 2018-06-25 08:29 | PDOC ---
PROGRESS NOTES Chief Complaint Chief Complaint A/P: Aphasia - based on CT head likely has a large left parietal and temporal CVA with receptive and expressive aphasia, seems to be feeling her right hand as though there is sensation loss. Does not follow commands at all. ASA, statin, Neurology consultation. 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 Last seen normal Tuesday night. She makes meaningful eye contact, does not appropriately follow commands, moves all extremities. No recent trauma or illness. She was writing "gibberish" according to her son as well and was very concerning. Came to hospital for further care. Potassium 3.2, Na 133 EKG to [place] showed NSR at 61bpm, NO ST elevation, baseline artifact noted to V5-V6 CT revealed wedge shaped hypodensity in left MCA territory parietal and temporal lobes, MRI confirmed. 06/24: Seen by PT, ambulating well. Seen by OT, unable to follow any commands, has facial recognition, but no object recognition. Needs prompting even to use the restroom and to eat. She is verbalizing today, saying no. K 3.2 and mag 1.6 Pulled out IV. Has been working with PT on puzzles well. Urine dark and UOP decreased. Not taking PO well, does not recognize food or drinks. Recognizes people. Cannot interpret words or follow commands without physical guidance. Mag 1.5. Sleeping a lot more today. Moving all extremities well. Plan: BP control, IV vasotec prn. Glycemic control Needs IV again Replace K and mag needs IV replacement. She is getting dehydrated Needs skilled services on D/c, does not appear she will be able to manage without 24/7 care currently, will consult Vitals Vitals Vital Signs Date Time Temp Pulse Resp B/P (MAP) Pulse Ox O2 Delivery O2 Flow Rate FiO2 06/25/18 07:20 98 Room Air 2.0 06/25/18 07:05 98.8 63 16 107/65 (79) 98.8 Physical Exam General: No acute distress, Other (Does not follow commands) Heart: Regular rate, Normal S1, Normal S2 Abdomen: Normal bowel sounds, Soft, No tenderness, No hepatosplenomegaly, No masses Extremities: No clubbing, No cyanosis, No edema, Normal pulses, No tenderness/ swelling Skin: No rashes, No breakdown, No significant lesion Labs LABS Laboratory Tests Test 06/24/18 11:16 06/24/18 12:20 06/24/18 16:45 06/24/18 20:56 Glucose (Fingerstick) 155 mg/dL (70-99) 158 mg/dL (70-99) 119 mg/dL (70-99) Sodium Level 142 mmol/L (136-145) Potassium Level 3.3 mmol/L (3.5-5.1) Chloride Level 102 mmol/L (98-107) Carbon Dioxide Level 27 mmol/L (21-32) Anion Gap 13 (6-14) Blood Urea Nitrogen 10 mg/dL (7-20) Creatinine 1.1 mg/dL (0.6-1.0) Estimated GFR (Cockcroft-Gault) 49.5 Glucose Level 141 mg/dL (70-99) Calcium Level 9.3 mg/dL (8.5-10.1) Magnesium Level 1.6 mg/dL (1.8-2.4) Test 06/25/18 07:02 Glucose (Fingerstick) 120 mg/dL (70-99) Assessment and Plan Assessmemt and Plan Problems Medical Problems: (1) Acute CVA (cerebrovascular accident) Status: Acute Comment Review of Relevant I have reviewed the following items samantha (where applicable) has been applied. Labs Laboratory Tests Test 06/23/18 17:30 06/23/18 20:11 06/24/18 07:02 06/24/18 11:16 Glucose (Fingerstick) 138 mg/dL (70-99) 125 mg/dL (70-99) 116 mg/dL (70-99) 155 mg/dL (70-99) Test 06/24/18 12:20 06/24/18 16:45 06/24/18 20:56 06/25/18 07:02 Sodium Level 142 mmol/L (136-145) Potassium Level 3.3 mmol/L (3.5-5.1) Chloride Level 102 mmol/L (98-107) Carbon Dioxide Level 27 mmol/L (21-32) Anion Gap 13 (6-14) Blood Urea Nitrogen 10 mg/dL (7-20) Creatinine 1.1 mg/dL (0.6-1.0) Estimated GFR (Cockcroft-Gault) 49.5 Glucose Level 141 mg/dL (70-99) Calcium Level 9.3 mg/dL (8.5-10.1) Magnesium Level 1.6 mg/dL (1.8-2.4) Glucose (Fingerstick) 158 mg/dL (70-99) 119 mg/dL (70-99) 120 mg/dL (70-99) Laboratory Tests Test 06/24/18 11:16 06/24/18 12:20 06/24/18 16:45 06/24/18 20:56 Glucose (Fingerstick) 155 mg/dL (70-99) 158 mg/dL (70-99) 119 mg/dL (70-99) Sodium Level 142 mmol/L (136-145) Potassium Level 3.3 mmol/L (3.5-5.1) Chloride Level 102 mmol/L (98-107) Carbon Dioxide Level 27 mmol/L (21-32) Anion Gap 13 (6-14) Blood Urea Nitrogen 10 mg/dL (7-20) Creatinine 1.1 mg/dL (0.6-1.0) Estimated GFR (Cockcroft-Gault) 49.5 Glucose Level 141 mg/dL (70-99) Calcium Level 9.3 mg/dL (8.5-10.1) Magnesium Level 1.6 mg/dL (1.8-2.4) Test 06/25/18 07:02 Glucose (Fingerstick) 120 mg/dL (70-99) Medications Current Medications Sodium Chloride 1,000 ml @ 1,000 mls/hr 1X ONCE IV Last administered on at 23:53; Start 06/21/18 at 22:00; Stop 06/21/18 at 22:59; Status DC Aspirin (Aspirin) 300 mg 1X ONCE MO Last administered on 06/21/18at 23:52; Start 06/21/18 at 23:30; Stop 06/21/18 at 23:31; Status DC Ondansetron HCl (Zofran) 4 mg PRN Q8HRS PRN IV NAUSEA/VOMITING; Start 06/21/18 at 23:30; Stop 06/22/18 at 23:29; Status DC Insulin Human Lispro (HumaLOG) 0-5 UNITS TIDWMEALS SQ Last administered on 06/24 16:53; Start 06/22/18 at 08:00 Dextrose (Dextrose 50%-Water Syringe) 12.5 gm PRN Q15MIN PRN IV SEE COMMENTS; Start 06/21/18 at 23:30 Aspirin (Genesis Aspirin) 325 mg DAILYWBKFT PO Last administered on 06/24/18 07: 49; Start 06/22/18 at 11:00 Simvastatin (Zocor) 5 mg QHS PO Last administered on 06/24/18 20:05; Start at 21:00 Acetaminophen/ Hydrocodone Bitart (Lortab 5/325) 1 tab PRN Q6HRS PRN PO MILD PAIN Last administered on 06/25/18 06:25; Start 06/22/18 at 15:00 Levothyroxine Sodium (Synthroid) 100 mcg DAILY07 PO Last administered on 06:24; Start 06/22/18 at 16:00 Lisinopril (Prinivil) 40 mg DAILY PO Last administered on 06/24/18 07:50; Start 06/22/18 at 16:00 Lorazepam (Ativan) 1 mg TID PRN PRN PO ANXIETY / AGITATION Last administered on 06/23/18at 21:01; Start 06/22/18 at 15:00 Atenolol (Tenormin) 100 mg DAILY PO ; Start 06/22/18 at 16:00; Stop 06/22/18 at 16:00; Status DC Non-Formulary Medication (Glipizide/ Metformin Hcl (Glipizide-Metformin 2.5-500 Mg)) 1 each DAILYWSUP PO ; Start 06/22/18 at 17:00; Status UNV Non-Formulary Medication (Glipizide/ Metformin Hcl (Glipizide-Metformin 2.5-500 Mg)) 2 each DAILY PO ; Start 06/23/18 at 09:00; Status UNV Non-Formulary Medication (Metformin Hcl (Metformin Hcl Er)) 500 mg DAILYWBKFT PO ; Start 06/23/18 at 08:00; Status UNV Acetaminophen/ Hydrocodone Bitart (Lortab 5/325) 2 tab PRN Q6HRS PRN PO MODERATE-SEVERE PAIN Last administered on 06/23/18at 04:15; Start 06/22/18 at 15: 00 Amlodipine Besylate (Norvasc) 5 mg DAILY PO Last administered on 06/24/18at 07: 50; Start 06/22/18 at 16:00 Metformin HCl (Glucophage) 1,000 mg DAILYWBKFT PO Last administered on at 07:49; Start 06/23/18 at 08:00 Metformin HCl (Glucophage) 500 mg DAILYWSUP PO Last administered on 06/24/18at 16:49; Start 06/22/18 at 17:00 Glipizide (Glucotrol) 5 mg DAILYWBKFT PO ; Start 06/23/18 at 08:00; Status Future Hold Glipizide (Glucotrol) 2.5 mg DAILYWSUP PO Last administered on 06/22/18at 18:01 ; Start 06/22/18 at 17:00 Dextrose (Dextrose 50%-Water Syringe) 25 gm 1X ONCE IV ; Start 06/23/18 at 00: 30; Stop 06/23/18 at 00:31; Status DC Lorazepam (Ativan) 1 mg PRN Q6HRS PRN IV ANXIETY / AGITATION; Start 06/23/18 at 20:45 Levetiracetam (Keppra) 500 mg BID PO Last administered on 06/24/18at 20:05; Start 06/24/18 at 09:00 Levetiracetam (Keppra) 1,000 mg 1X ONCE PO Last administered on 06/23/18at 22: 53; Start 06/23/18 at 22:15; Stop 06/23/18 at 22:16; Status DC Potassium Chloride (Klor-Con) 40 meq 1X ONCE PO ; Start 06/24/18 at 13:30; Stop 06/24/18 at 13:31; Status DC Magnesium Oxide (Magnesium Oxide) 400 mg BID PO Last administered on 06/24/18 20:05; Start 06/24/18 at 13:30 Potassium Chloride (KCl Oral Soln) 40 meq 1X ONCE PO Last administered on 06/24at 13:39; Start 06/24/18 at 13:45; Stop 06/24/18 at 13:46; Status DC Enoxaparin Sodium (Lovenox 40mg Syringe) 40 mg Q24H SQ Last administered on at 20:07; Start 06/24/18 at 20:00 Cetirizine HCl (ZyrTEC) 10 mg QHS PO Last administered on 06/24/18at 20:06; Start 06/24/18 at 20:00 Hydralazine HCl (Apresoline) 25 mg PRN TID PRN PO HYPERTENSION, SEE COMMENTS Last administered on 06/24/18at 23:34; Start 06/24/18 at 23:00 Active Scripts Active Reported Zyrtec (Cetirizine Hcl) 10 Mg Tablet 10 Mg PO DAILY PRN Prilosec Otc (Omeprazole Magnesium) 20 Mg Tablet.dr 20 Mg PO DAILY Hydrochlorothiazide Tablet (Hydrochlorothiazide) 12.5 Mg Tablet 12.5 Mg PO DAILY Lorazepam 1 Mg Tablet 1 Tab PO TID PRN PRN [place] 5-325 Tablet (Acetaminophen/Hydrocodone Bitart) 1 Each Tablet 1-2 Tab PO PRN Q4-6HRS PRN Glipizide-Metformin 2.5-500 Mg (Glipizide/Metformin Hcl) 1 Each Tablet 1 Each PO DAILYWSUP Glipizide-Metformin 2.5-500 Mg (Glipizide/Metformin Hcl) 1 Each Tablet 2 Each PO DAILY Atenolol 100 Mg Tablet 1 Tab PO DAILY Levothyroxine Sodium 100 Mcg Tablet 1 Tab PO DAILY Metformin Hcl Er (Metformin Hcl) 500 Mg Tab.er.24h 500 Mg PO DAILYWBKFT Lisinopril 40 Mg Tablet 1 Tab PO DAILY Vitals/I & O Vital Sign - Last 24 Hours 06/24/18 06/24/18 06/24/18 06/24/18 11:00 15:00 19:16 20:05 Temp 97.5 97.8 98.4 97.5 97.8 98.4 Pulse 61 95 69 Resp 16 16 18 B/P (MAP) 139/65 (89) 132/90 (104) 151/73 (99) Pulse Ox 97 94 98 O2 Delivery Room Air Room Air Room Air Room Air 06/24/18 06/24/18 06/25/18 06/25/18 23:28 23:34 03:16 07:05 Temp 97.6 97.8 98.8 97.6 97.8 98.8 Pulse 69 65 64 63 Resp 18 18 16 B/P (MAP) 192/83 (119) 199/87 166/61 (96) 107/65 (79) Pulse Ox 100 98 98 O2 Delivery Room Air Room Air Room Air 06/25/18 07:20 Pulse Ox 98 O2 Delivery Room Air O2 Flow Rate 2.0 Intake and Output 06/24/18 06/24/18 06/25/18 15:00 23:00 07:00 Intake Total 50 ml 0 ml Balance 50 ml 0 ml PÉREZ DEE MD Jun 25, 2018 08:29
[2018-06-25] MEDS: LISINOPRIL 20 MG TABLET PO SCH (09:00)
[2018-06-25] MEDS: amLODIPine BESYLATE 5 MG TABLET PO SCH (09:00)
[2018-06-25] MEDS: ASPIRIN 325 MG TABLET PO SCH (09:36)
[2018-06-25] MEDS: levETIRAcetam 500 MG TABLET PO SCH ×2 (09:36→21:03)
[2018-06-25] MEDS: metFORMIN 500 MG TABLET PO SCH ×2 (09:37→16:50)
[2018-06-25] MEDS: MAGNESIUM OXIDE 400 MG TABLET PO SCH ×2 (09:37→21:03)
[2018-06-25 09:49] LABS: CALCIUM 8.5 mg/dL (8.5-10.1); CREATININE 1.1 mg/dL (0.6-1.0); GFR 49.5; MAGNESIUM 1.5 mg/dL (1.8-2.4); POTASSIUM 3.9 mmol/L (3.5-5.1)
[2018-06-25] MEDS ORDERED: MAGNESIUM SULFATE 4GM 100 ML IV ONE (13:00)
[2018-06-25] MEDS: IV NORMAL SALINE 1000ML BAG 1,000 ML IV SCH ×2 (13:02→21:03)
[2018-06-25] MEDS: glipiZIDE 5 MG TABLET PO SCH (16:50)
[2018-06-25] MEDS: CETIRIZINE HCL 10 MG TABLET. PO SCH (21:03)
[2018-06-25] MEDS: hydrALAZINE 25 MG TABLET PO PRN (21:03)
[2018-06-25] MEDS: SIMVASTATIN 5 MG TABLET. PO SCH (21:03)
[2018-06-25] MEDS: ENOXAPARIN 40 MG/0.4 ML SYRINGE. SQ SCH (21:05)
[2018-06-26 02:58] VITALS: BP 169/74
[2018-06-26 04:48] LABS: CALCIUM 8.4 mg/dL (8.5-10.1); GFR 55.3; MAGNESIUM 2.5 mg/dL (1.8-2.4); POTASSIUM 3.7 mmol/L (3.5-5.1)
[2018-06-26] MEDS: IV NORMAL SALINE 1000ML BAG 1,000 ML IV SCH ×3 (05:49→20:35)
[2018-06-26] MEDS: LEVOTHYROXINE 100 MCG TABLET PO SCH (05:49)
[2018-06-26 07:00] VITALS: BP 196/77
[2018-06-26] MEDS: INSULIN LISPRO 300 UNITS/3 ML INSULN.PEN. SQ SCH ×3 (07:23→17:00)
[2018-06-26] MEDS: ASPIRIN 325 MG TABLET PO SCH (08:24)
[2018-06-26] MEDS: amLODIPine BESYLATE 5 MG TABLET PO SCH (08:25)
[2018-06-26] MEDS: MAGNESIUM OXIDE 400 MG TABLET PO SCH ×2 (08:25→20:34)
[2018-06-26] MEDS: levETIRAcetam 500 MG TABLET PO SCH ×2 (08:25→20:33)
[2018-06-26] MEDS: LISINOPRIL 20 MG TABLET PO SCH (08:25)
[2018-06-26] MEDS: hydrALAZINE 25 MG TABLET PO PRN (08:25)
[2018-06-26] MEDS: metFORMIN 500 MG TABLET PO SCH ×2 (08:27→17:43)
[2018-06-26 11:00] VITALS: BP 148/54
--- NOTE | 2018-06-26 12:11 | NUR ---
SW following pt. [facility] has accepted pt pending insurance approval. Insurance auth for SNU pending. Will continue to follow.
--- NOTE | 2018-06-26 13:29 | PDOC ---
PROGRESS NOTES Chief Complaint Chief Complaint A/P: Aphasia - based on CT head likely has a large left parietal and temporal CVA with receptive and expressive aphasia, seems to be feeling her right hand as though there is sensation loss. Does not follow commands at all. ASA, statin, Neurology consultation. 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 PT/OT/[employer] Hypokalemia - will replace, check mag Bilirubin elevated - will start bowel regimen HTN - restart home meds, add amlodipine DM2 - cont oral meds, add sliding scale Hypothyroidism - cont levothyroxine FEN - NPO pending [employer] evaluation PPX - Lovenox FULL CODE Inpatient for acute CVA, will need rehab services on d/c, inpatient likely 2 midnights per my personal review of mri head images Large area of acute infarction is seen involving the left temporal and left parietal lobe History of Present Illness History of Present Illness Ms Alford is a 68yo F w/ PMHx HTN, DM2, hypothyroidism who presents with aphasia noted by her son this morning. Last seen normal Tuesday night 06/20. She makes meaningful eye contact She was writing "gibberish" according to her son as well and was very concerning. Came to hospital for further care. Potassium 3.2, Na 133 EKG to nh showed NSR at 61bpm, NO ST elevation, baseline artifact noted to V5-V6 CT revealed wedge shaped hypodensity in left MCA territory parietal and temporal lobes, MRI confirmed. Subacute large left parietal and temporal infract. Cerebral edema surrounding infarct areas. Metabolic encephalopathy. 06/24: Seen by PT, ambulating well. Seen by OT, unable to follow any commands, has facial recognition, but no object recognition. Needs prompting even to use the restroom and to eat. She is verbalizing today, saying no. K 3.2 and mag 1.6 06/26 Pulled out IV. Has been working with PT on puzzles Urine dark and UOP decreased. Not taking PO well, does not recognize food Plan: BP control, IV vasotec prn. Glycemic control Needs IV again Replace K and mag needs IV replacement. She is getting dehydrated Needs skilled services on D/c, does not appear she will be able to manage without 24/7 care currently, will consult Vitals Vitals Vital Signs Date Time Temp Pulse Resp B/P (MAP) Pulse Ox O2 Delivery O2 Flow Rate FiO2 06/26/18 11:00 98.2 67 16 148/54 (85) 98 Room Air 98.2 06/25/18 07:20 2.0 Physical Exam General: Cooperative, No acute distress, Other (Does not follow commands) Heart: Regular rate, Normal S1, Normal S2 Lungs: Clear Abdomen: Normal bowel sounds, Soft, No tenderness, No hepatosplenomegaly, No masses Extremities: No clubbing, No cyanosis, No edema, Normal pulses, No tenderness/ swelling Skin: No rashes, No breakdown, No significant lesion Labs LABS Technique: Unenhanced T1-weighted sagittal and axial, T2-weighted axial and coronal and FLAIR, gradient echo and diffusion-weighted axial images of the brain were obtained. Findings: Comparison is made to the patient's CT scan of the head dated 06/21/2018. There is generalized parenchymal atrophy. Patchy, confluent and multiple focal areas of increased signal intensity are seen within the periventricular and subcortical white matter of both cerebral hemispheres on the FLAIR and T2-weighted images consistent with areas of small vessel ischemic disease. Old areas of infarction are seen involving both cerebellar hemispheres. These measure 3 mm to 9 mm in size. Old areas of lacunar infarction are seen involving the right thalamus. These measure 3 mm in size. Old areas of lacunar infarction are seen involving the white matter of the right frontoparietal lobe. These measure 5 mm to 1.2 cm in size. A large area of restricted diffusion is seen involving the left temporal lobe extending to involve the left parietal lobe. This measures 10 x 5.0 x 4.8 cm in AP, craniocaudal and transverse dimensions. This is consistent with an area of acute infarction. This is in a left MCA distribution. It corresponds to the low-attenuation area seen on the patient's CT scan. There is surrounding edema and associated mass effect without evidence of midline shift. No additional acute parenchymal abnormality is seen. No extra-axial fluid collection is noted. Mild mucosal thickening is seen scattered throughout ethmoid air cells bilaterally. There is a minimal right mastoid effusion. Diminished flow void is seen involving the left MCA trifurcation and its branches. IMPRESSION: Large area of acute infarction is seen involving the left temporal and left parietal lobe as outlined above. There is surrounding edema and associated mass effect without evidence of midline shift. Electronically signed by: Eduardo Schilling MD (06/22/2018 1:00 PM) [facility] Laboratory Tests Test 06/25/18 16:32 06/25/18 21:10 06/26/18 03:30 06/26/18 07:03 Glucose (Fingerstick) 127 mg/dL (70-99) 67 mg/dL (70-99) 109 mg/dL (70-99) Sodium Level 141 mmol/L (136-145) Potassium Level 3.7 mmol/L (3.5-5.1) Chloride Level 104 mmol/L (98-107) Carbon Dioxide Level 24 mmol/L (21-32) Anion Gap 13 (6-14) Blood Urea Nitrogen 11 mg/dL (7-20) Creatinine 1.0 mg/dL (0.6-1.0) Estimated GFR (Cockcroft-Gault) 55.3 Glucose Level 100 mg/dL (70-99) Calcium Level 8.4 mg/dL (8.5-10.1) Magnesium Level 2.5 mg/dL (1.8-2.4) Test 06/26/18 11:30 Glucose (Fingerstick) 110 mg/dL (70-99) Assessment and Plan Assessmemt and Plan Problems Medical Problems: (1) Acute CVA (cerebrovascular accident) Status: Acute Comment Review of Relevant I have reviewed the following items samantha (where applicable) has been applied. Labs Laboratory Tests Test 06/24/18 16:45 06/24/18 20:56 06/25/18 07:02 06/25/18 09:25 Glucose (Fingerstick) 158 mg/dL (70-99) 119 mg/dL (70-99) 120 mg/dL (70-99) Sodium Level 139 mmol/L (136-145) Potassium Level 3.9 mmol/L (3.5-5.1) Chloride Level 103 mmol/L (98-107) Carbon Dioxide Level 24 mmol/L (21-32) Anion Gap 12 (6-14) Blood Urea Nitrogen 11 mg/dL (7-20) Creatinine 1.1 mg/dL (0.6-1.0) Estimated GFR (Cockcroft-Gault) 49.5 Glucose Level 123 mg/dL (70-99) Calcium Level 8.5 mg/dL (8.5-10.1) Magnesium Level 1.5 mg/dL (1.8-2.4) Test 06/25/18 11:38 06/25/18 16:32 06/25/18 21:10 06/26/18 03:30 Glucose (Fingerstick) 129 mg/dL (70-99) 127 mg/dL (70-99) 67 mg/dL (70-99) Sodium Level 141 mmol/L (136-145) Potassium Level 3.7 mmol/L (3.5-5.1) Chloride Level 104 mmol/L (98-107) Carbon Dioxide Level 24 mmol/L (21-32) Anion Gap 13 (6-14) Blood Urea Nitrogen 11 mg/dL (7-20) Creatinine 1.0 mg/dL (0.6-1.0) Estimated GFR (Cockcroft-Gault) 55.3 Glucose Level 100 mg/dL (70-99) Calcium Level 8.4 mg/dL (8.5-10.1) Magnesium Level 2.5 mg/dL (1.8-2.4) Test 06/26/18 07:03 06/26/18 11:30 Glucose (Fingerstick) 109 mg/dL (70-99) 110 mg/dL (70-99) Laboratory Tests Test 06/25/18 16:32 06/25/18 21:10 06/26/18 03:30 06/26/18 07:03 Glucose (Fingerstick) 127 mg/dL (70-99) 67 mg/dL (70-99) 109 mg/dL (70-99) Sodium Level 141 mmol/L (136-145) Potassium Level 3.7 mmol/L (3.5-5.1) Chloride Level 104 mmol/L (98-107) Carbon Dioxide Level 24 mmol/L (21-32) Anion Gap 13 (6-14) Blood Urea Nitrogen 11 mg/dL (7-20) Creatinine 1.0 mg/dL (0.6-1.0) Estimated GFR (Cockcroft-Gault) 55.3 Glucose Level 100 mg/dL (70-99) Calcium Level 8.4 mg/dL (8.5-10.1) Magnesium Level 2.5 mg/dL (1.8-2.4) Test 06/26/18 11:30 Glucose (Fingerstick) 110 mg/dL (70-99) Medications Current Medications Sodium Chloride 1,000 ml @ 1,000 mls/hr 1X ONCE IV Last administered on 23:53; Start 06/21/18 at 22:00; Stop 06/21/18 at 22:59; Status DC Aspirin (Aspirin) 300 mg 1X ONCE OH Last administered on 06/21/18at 23:52; Start 06/21/18 at 23:30; Stop 06/21/18 at 23:31; Status DC Ondansetron HCl (Zofran) 4 mg PRN Q8HRS PRN IV NAUSEA/VOMITING; Start 06/21/18 at 23:30; Stop 06/22/18 at 23:29; Status DC Insulin Human Lispro (HumaLOG) 0-5 UNITS TIDWMEALS SQ Last administered on 06/24 16:53; Start 06/22/18 at 08:00 Dextrose (Dextrose 50%-Water Syringe) 12.5 gm PRN Q15MIN PRN IV SEE COMMENTS Last administered on 06/25/18 21:13; Start 06/21/18 at 23:30 Aspirin (Genesis Aspirin) 325 mg DAILYWBKFT PO Last administered on 06/26/18 08: 24; Start 06/22/18 at 11:00 Simvastatin (Zocor) 5 mg QHS PO Last administered on 06/25/18 21:03; Start at 21:00 Acetaminophen/ Hydrocodone Bitart (Lortab 5/325) 1 tab PRN Q6HRS PRN PO MILD PAIN Last administered on 06/25/18 06:25; Start 06/22/18 at 15:00 Levothyroxine Sodium (Synthroid) 100 mcg DAILY07 PO Last administered on 05:49; Start 06/22/18 at 16:00 Lisinopril (Prinivil) 40 mg DAILY PO Last administered on 06/26/18 08:25; Start 06/22/18 at 16:00 Lorazepam (Ativan) 1 mg TID PRN PRN PO ANXIETY / AGITATION Last administered on 06/23/18 21:01; Start 06/22/18 at 15:00 Atenolol (Tenormin) 100 mg DAILY PO ; Start 06/22/18 at 16:00; Stop 06/22/18 at 16:00; Status DC Non-Formulary Medication (Glipizide/ Metformin Hcl (Glipizide-Metformin 2.5-500 Mg)) 1 each DAILYWSUP PO ; Start 06/22/18 at 17:00; Status UNV Non-Formulary Medication (Glipizide/ Metformin Hcl (Glipizide-Metformin 2.5-500 Mg)) 2 each DAILY PO ; Start 06/23/18 at 09:00; Status UNV Non-Formulary Medication (Metformin Hcl (Metformin Hcl Er)) 500 mg DAILYWBKFT PO ; Start 06/23/18 at 08:00; Status UNV Acetaminophen/ Hydrocodone Bitart (Lortab 5/325) 2 tab PRN Q6HRS PRN PO MODERATE-SEVERE PAIN Last administered on 06/23/18at 04:15; Start 06/22/18 at 15: 00 Amlodipine Besylate (Norvasc) 5 mg DAILY PO Last administered on 06/26/18at 08: 25; Start 06/22/18 at 16:00 Metformin HCl (Glucophage) 1,000 mg DAILYWBKFT PO Last administered on at 08:27; Start 06/23/18 at 08:00 Metformin HCl (Glucophage) 500 mg DAILYWSUP PO Last administered on 06/25/18at 16:50; Start 06/22/18 at 17:00 Glipizide (Glucotrol) 5 mg DAILYWBKFT PO ; Start 06/23/18 at 08:00; Status Future Hold Glipizide (Glucotrol) 2.5 mg DAILYWSUP PO Last administered on 06/25/18at 16:50 ; Start 06/22/18 at 17:00 Dextrose (Dextrose 50%-Water Syringe) 25 gm 1X ONCE IV ; Start 06/23/18 at 00: 30; Stop 06/23/18 at 00:31; Status DC Lorazepam (Ativan) 1 mg PRN Q6HRS PRN IV ANXIETY / AGITATION; Start 06/23/18 at 20:45 Levetiracetam (Keppra) 500 mg BID PO Last administered on 06/26/18at 08:25; Start 06/24/18 at 09:00 Levetiracetam (Keppra) 1,000 mg 1X ONCE PO Last administered on 06/23/18at 22: 53; Start 06/23/18 at 22:15; Stop 06/23/18 at 22:16; Status DC Potassium Chloride (Klor-Con) 40 meq 1X ONCE PO ; Start 06/24/18 at 13:30; Stop 06/24/18 at 13:31; Status DC Magnesium Oxide (Magnesium Oxide) 400 mg BID PO Last administered on 06/26/18 08:25; Start 06/24/18 at 13:30 Potassium Chloride (KCl Oral Soln) 40 meq 1X ONCE PO Last administered on 06/24at 13:39; Start 06/24/18 at 13:45; Stop 06/24/18 at 13:46; Status DC Enoxaparin Sodium (Lovenox 40mg Syringe) 40 mg Q24H SQ Last administered on at 21:05; Start 06/24/18 at 20:00 Cetirizine HCl (ZyrTEC) 10 mg QHS PO Last administered on 06/25/18at 21:03; Start 06/24/18 at 20:00 Hydralazine HCl (Apresoline) 25 mg PRN TID PRN PO HYPERTENSION, SEE COMMENTS Last administered on 06/26/18 08:25; Start 06/24/18 at 23:00 Magnesium Sulfate/ Dextrose 100 ml @ 25 mls/hr 1X ONCE IV Last administered on 06/25/18 13:03; Start 06/25/18 at 13:00; Stop 06/25/18 at 16:59; Status DC Sodium Chloride 1,000 ml @ 125 mls/hr Q8H IV Last administered on 06/26/18at 05 :49; Start 06/25/18 at 13:00 Active Scripts Active Reported Zyrtec (Cetirizine Hcl) 10 Mg Tablet 10 Mg PO DAILY PRN Prilosec Otc (Omeprazole Magnesium) 20 Mg Tablet.dr 20 Mg PO DAILY Hydrochlorothiazide Tablet (Hydrochlorothiazide) 12.5 Mg Tablet 12.5 Mg PO DAILY Lorazepam 1 Mg Tablet 1 Tab PO TID PRN PRN [place] 5-325 Tablet (Acetaminophen/Hydrocodone Bitart) 1 Each Tablet 1-2 Tab PO PRN Q4-6HRS PRN Glipizide-Metformin 2.5-500 Mg (Glipizide/Metformin Hcl) 1 Each Tablet 1 Each PO DAILYWSUP Glipizide-Metformin 2.5-500 Mg (Glipizide/Metformin Hcl) 1 Each Tablet 2 Each PO DAILY Atenolol 100 Mg Tablet 1 Tab PO DAILY Levothyroxine Sodium 100 Mcg Tablet 1 Tab PO DAILY Metformin Hcl Er (Metformin Hcl) 500 Mg Tab.er.24h 500 Mg PO DAILYWBKFT Lisinopril 40 Mg Tablet 1 Tab PO DAILY Vitals/I & O Vital Sign - Last 24 Hours 06/25/18 06/25/18 06/25/18 06/25/18 15:00 19:18 19:36 19:50 Temp 97.9 97.6 97.9 97.9 97.6 97.9 Pulse 60 60 61 Resp 18 18 18 B/P (MAP) 169/77 (107) 190/80 (116) 123/64 (83) Pulse Ox 92 98 91 O2 Delivery Room Air Room Air Room Air Room Air 06/25/18 06/25/18 06/26/18 06/26/18 21:03 23:28 02:58 07:00 Temp 98.0 97.6 97.7 98.0 97.6 97.7 Pulse 60 89 70 59 Resp 18 18 B/P (MAP) 190/80 206/99 (134) 169/74 (105) 196/77 (116) Pulse Ox 99 98 99 O2 Delivery Room Air Room Air Room Air 06/26/18 06/26/18 06/26/18 06/26/18 08:00 08:25 08:25 08:25 Pulse 59 59 59 B/P (MAP) 196/77 196/77 196/77 O2 Delivery Room Air 06/26/18 11:00 Temp 98.2 98.2 Pulse 67 Resp 16 B/P (MAP) 148/54 (85) Pulse Ox 98 O2 Delivery Room Air Intake and Output 06/25/18 06/25/18 06/26/18 15:00 23:00 07:00 Intake Total 100 ml 150 ml Balance 100 ml 150 ml ARCHANA HAY MD Jun 26, 2018 13:29
[2018-06-26 14:32] VITALS: BP 164/64
--- NOTE | 2018-06-26 14:36 | NUR ---
EZEKIEL spoke with Noemi who requested for pt to be seen by PT today. EZEKIEL left a voice mail to inpatient PT department. EZEKIEL also phoned and faxed referral to [facility] acute rehab as pt is acute rehab appropriate. Spoke with pt's daughter, Lena and updated her about process. She is agreeable with plan. Pt acceptance and admission to [facility] pending. Will continue to follow. Addendum: 06/26/18 at 1625 by KAYLYNN FALCON Pt has been accepted at [facility] pending insurance approval. Will continue to follow.
--- NOTE | 2018-06-26 16:57 | PDOC ---
PROGRESS NOTES Assessment Assessment Subacute large left parietal and temporal infract. Cerebral edema surrounding infarct areas. Metabolic encephalopathy. Mixed aphasia. HTN. HLD. DM. Over weight. RECOMMENDATIONS/PLAN: Continue ASA 325 mg daily. Continue Zocor HS. Swallow test, she passed. FU with PCP. Wait for Rehab. FU with Neurology after 1 month. Discussed in all detail with her son, daughter, son-in-law, [id number] and showed them MRI findings on 06/22/18. Discussed with her daughter again at bedside on 06/23/18. Carotid A US + Doppler: No high grade stenosis. Echo: Unremarkable. HISTORY OF THE PRESENT ILLNESS: 68-y-old female patient with Hx of HTN, HLD, DM was last known normal in the morning of 06/20/18. She was noted mental status changes with aphasia that evening, but did not search medical attention until next day to come to the ER on 06/21/18. Her HCT was abnormal for stroke but the age was undetermined. MRI showed large subacute infract. PAST MEDICAL HISTORY: HTN. HLD. DM. Over weight. PAST SURGERY HISTORY: No major surgery recently. ALLERGY: Unknown MEDICATIONS: Refer to [facility] FAMILY HISTORY: Non contributory. SOCIAL HISTORY: Lives at home with her grandson. Denies current smoking, drinking, and illicit drug use. REVIEW OF SYSTEMS: Constitutional: No malnutrition, weight loss, cachexia. Head: No traumatic brain or head injury. Skin: No edema, or rash. Ear: No infection. Eyes: No vision loss or color blindness. Nose: No bleeding or purulent discharges. Hearing: Hearing decrease. Neck: No injury. Breast: No history of cancer, masses,or discharges. Cardiac: HTN, HLD. Pulmonary: No COPD. GI: No GI ulcer, GI bleeding. Urinary/genital: UTI. Endocrinologic: Diabetes Mellitus? Skeletomuscular: No muscular atrophy, deformity. Neurological: see HP. Psychiatric: Denies drug use/abuse. Otherwise, not [id number] review of systems. PHYSICAL EXAMINATION: General appearance is in subacute distress. HEENT: Normocephalic and nontraumatic. Eyes, nose, ears, and throat are unremarkable. Neck is supple. No lymphadenopathy. No crepitus. Cardiovascular: S1, S2, regular rate and rhythm. Pulmonary: Clear to auscultation bilaterally. Abdomen: Bowel sounds are positive. Extremities: No rash, lesions, or edema. No restriction of range of motion NEUROLOGICAL EXAMINATION: Awake. Sitting in chair. Able to understand and answer some questions. Mixed aphasia. Not fully oriented to time, but knew place and person. PERRL. EOMI. CN: no focal findings. Muscle tone: within normal. Muscle strength: 5- DTR: 2- Plantar reflex: Neutral response bilaterally Gait: not examined in chair. Sensory exam: seemed decreased in right UE side, but improved since 06/23/18. Not cerebellar signs elicited. F-T-N test fine. Objective Objective Vital Signs Date Time Temp Pulse Resp B/P (MAP) Pulse Ox O2 Delivery O2 Flow Rate FiO2 06/26/18 14:32 98.3 61 16 164/64 (97) 98 Room Air 98.3 06/25/18 07:20 2.0 Intake and Output 06/26/18 07:00 Intake Total 250 ml Balance 250 ml Intake Oral 250 ml # Voids 4 # Bowel Movements 1 Vitals Signs Vitals VS - Last 72 Hours, by Label Date Time Temp Pulse Resp B/P (MAP) Pulse Ox O2 Delivery O2 Flow Rate FiO2 06/26/18 14:32 98.3 61 16 164/64 (97) 98 Room Air 98.3 06/26/18 11:00 98.2 67 16 148/54 (85) 98 Room Air 98.2 06/26/18 08:25 59 196/77 06/26/18 08:25 59 196/77 06/26/18 08:25 59 196/77 06/26/18 08:00 Room Air 06/26/18 07:00 97.7 59 196/77 (116) 99 Room Air 97.7 06/26/18 02:58 97.6 70 18 169/74 (105) 98 Room Air 97.6 06/25/18 23:28 98.0 89 18 206/99 (134) 99 Room Air 98.0 06/25/18 21:03 60 190/80 06/25/18 19:50 97.9 61 18 123/64 (83) 91 Room Air 97.9 06/25/18 19:36 Room Air 06/25/18 19:18 97.6 60 18 190/80 (116) 98 Room Air 97.6 06/25/18 15:00 97.9 60 18 169/77 (107) 92 Room Air 97.9 06/25/18 11:07 97.9 61 18 153/68 (96) 96 Room Air 97.9 06/25/18 09:00 63 107/65 06/25/18 08:00 Room Air 06/25/18 07:20 98 Room Air 2.0 06/25/18 07:05 98.8 63 16 107/65 (79) 98 Room Air 98.8 Laboratory Laboratory Laboratory Tests Test 06/25/18 16:32 06/25/18 21:10 06/26/18 03:30 06/26/18 07:03 Glucose (Fingerstick) 127 mg/dL (70-99) 67 mg/dL (70-99) 109 mg/dL (70-99) Sodium Level 141 mmol/L (136-145) Potassium Level 3.7 mmol/L (3.5-5.1) Chloride Level 104 mmol/L (98-107) Carbon Dioxide Level 24 mmol/L (21-32) Anion Gap 13 (6-14) Blood Urea Nitrogen 11 mg/dL (7-20) Creatinine 1.0 mg/dL (0.6-1.0) Estimated GFR (Cockcroft-Gault) 55.3 Glucose Level 100 mg/dL (70-99) Calcium Level 8.4 mg/dL (8.5-10.1) Magnesium Level 2.5 mg/dL (1.8-2.4) Test 06/26/18 11:30 Glucose (Fingerstick) 110 mg/dL (70-99) Comment Review of Relevant I have reviewed the following items samantha (where applicable) has been applied. DOROTHY PAIZ MD Jun 26, 2018 16:56
[2018-06-26] MEDS: glipiZIDE 5 MG TABLET PO SCH (17:47)
[2018-06-26] MEDS ORDERED: cloNIDine TTS-2 1 PATCH PATCH TD SCH (18:00)
[2018-06-26 19:38] VITALS: BP 132/90
[2018-06-26] MEDS: CETIRIZINE HCL 10 MG TABLET. PO SCH (20:33)
[2018-06-26] MEDS: SIMVASTATIN 5 MG TABLET. PO SCH (20:33)
[2018-06-26] MEDS: ENOXAPARIN 40 MG/0.4 ML SYRINGE. SQ SCH (20:34)
[2018-06-26 23:12] VITALS: BP 198/76
[2018-06-27 03:48] VITALS: BP 184/68
[2018-06-27] MEDS: IV NORMAL SALINE 1000ML BAG 1,000 ML IV SCH ×2 (05:00→15:17)
[2018-06-27 05:11] LABS: BASO % 1 % (0-3); EOS # 0.1 x10^3/uL (0.0-0.7); EOS % 3 % (0-3); HEMATOCRIT 31.1 % (36.0-47.0); HEMOGLOBIN 10.6 g/dL (12.0-15.5); LYMPH # 1.2 x10^3/uL (1.0-4.8); LYMPH % 37 % (24-48); MEAN CORPUSCULAR HEMOGLOBIN 33 pg (25-35); MEAN CORPUSCULAR HGB CONC 34 g/dL (31-37); MEAN CORPUSCULAR VOLUME 96 fL (79-100); MONO # 0.2 x10^3/uL (0.0-1.1); MONO % 8 % (0-9); NEUT # 1.6 x10^3uL (1.8-7.7); NEUT % 51 % (31-73); PLATELET COUNT 129 x10^3/uL (140-400); RED BLOOD COUNT 3.22 x10^6/uL (3.50-5.40); RED CELL DISTRIBUTION WIDTH 13.3 % (11.5-14.5); WHITE BLOOD COUNT 3.2 x10^3/uL (4.0-11.0)
[2018-06-27 05:29] LABS: CALCIUM 8.5 mg/dL (8.5-10.1); CREATININE 0.8 mg/dL (0.6-1.0); GFR 71.5; POTASSIUM 3.7 mmol/L (3.5-5.1)
[2018-06-27] MEDS: LEVOTHYROXINE 100 MCG TABLET PO SCH (06:00)
[2018-06-27 07:00] VITALS: BP 198/86
[2018-06-27] MEDS: INSULIN LISPRO 300 UNITS/3 ML INSULN.PEN. SQ SCH ×3 (07:53→17:00)
[2018-06-27] MEDS: MULTIVIT INFUSN,ADULT 4,VIT K 10 ML, THIAMINE INJ 100 MG, FOLIC ACID INJ 1 MG in IV NOR... IV SCH (08:06)
--- NOTE | 2018-06-27 08:42 | NUR ---
SW following pt. Spoke with Noemi and Era still reviewing and want new PT [place] and [place]. TINO Carson to order PT. Auth for SNU vs Rehab pending. Will continue to follow.
--- NOTE | 2018-06-27 08:55 | PDOC ---
PROGRESS NOTES Chief Complaint Chief Complaint A/P: Aphasia - based on CT head likely has a large left parietal and temporal CVA with receptive and expressive aphasia, seems to be feeling her right hand as though there is sensation loss. Does not follow commands at all. ASA, statin, Neurology consultation. 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 Last seen normal Tuesday night 06/20. She makes meaningful eye contact She was writing "gibberish" according to her son as well and was very concerning. Came to hospital for further care. Potassium 3.2, Na 133 EKG to me showed NSR at 61bpm, NO ST elevation, baseline artifact noted to V5-V6 CT revealed wedge shaped hypodensity in left MCA territory parietal and temporal lobes, MRI confirmed. Subacute large left parietal and temporal infract. Cerebral edema surrounding infarct areas. Metabolic encephalopathy. 06/24: Seen by PT, ambulating well. Seen by OT, unable to follow any commands, has facial recognition, but no object recognition. Needs prompting even to use the restroom and to eat. She is verbalizing today, saying no. K 3.2 and mag 1.6 06/26 Pulled out IV. Has been working with PT on puzzles Urine dark and UOP decreased. Not taking PO well, does not recognize food Plan: BP control, IV vasotec prn. Glycemic control Needs IV again Replace K and mag needs IV replacement. She is getting dehydrated Needs skilled services on D/c, does not appear she will be able to manage without 24/7 care currently, will consult Vitals Vitals Vital Signs Date Time Temp Pulse Resp B/P (MAP) Pulse Ox O2 Delivery O2 Flow Rate FiO2 06/27/18 07:00 98.4 59 18 198/86 (123) 95 Room Air 98.4 Physical Exam General: Alert, Cooperative, No acute distress, Other (Does not follow commands ) Heart: Regular rate, Normal S1, Normal S2 Lungs: Clear Abdomen: Normal bowel sounds, Soft, No tenderness, No hepatosplenomegaly, No masses Extremities: No clubbing, No cyanosis, No edema, Normal pulses, No tenderness/ swelling Skin: No rashes, No breakdown, No significant lesion Labs LABS Laboratory Tests Test 06/26/18 11:30 06/26/18 17:04 06/26/18 20:14 06/27/18 03:35 Glucose (Fingerstick) 110 mg/dL (70-99) 112 mg/dL (70-99) 121 mg/dL (70-99) White Blood Count 3.2 x10^3/uL (4.0-11.0) Red Blood Count 3.22 x10^6/uL (3.50-5.40) Hemoglobin 10.6 g/dL (12.0-15.5) Hematocrit 31.1 % (36.0-47.0) Mean Corpuscular Volume 96 fL (79-100) Mean Corpuscular Hemoglobin 33 pg (25-35) Mean Corpuscular Hemoglobin Concent 34 g/dL (31-37) Red Cell Distribution Width 13.3 % (11.5-14.5) Platelet Count 129 x10^3/uL (140-400) Neutrophils (%) (Auto) 51 % (31-73) Lymphocytes (%) (Auto) 37 % (24-48) Monocytes (%) (Auto) 8 % (0-9) Eosinophils (%) (Auto) 3 % (0-3) Basophils (%) (Auto) 1 % (0-3) Neutrophils # (Auto) 1.6 x10^3uL (1.8-7.7) Lymphocytes # (Auto) 1.2 x10^3/uL (1.0-4.8) Monocytes # (Auto) 0.2 x10^3/uL (0.0-1.1) Eosinophils # (Auto) 0.1 x10^3/uL (0.0-0.7) Basophils # (Auto) 0.0 x10^3/uL (0.0-0.2) Sodium Level 141 mmol/L (136-145) Potassium Level 3.7 mmol/L (3.5-5.1) Chloride Level 106 mmol/L (98-107) Carbon Dioxide Level 22 mmol/L (21-32) Anion Gap 13 (6-14) Blood Urea Nitrogen 9 mg/dL (7-20) Creatinine 0.8 mg/dL (0.6-1.0) Estimated GFR (Cockcroft-Gault) 71.5 Glucose Level 85 mg/dL (70-99) Calcium Level 8.5 mg/dL (8.5-10.1) Magnesium Level 2.0 mg/dL (1.8-2.4) Test 06/27/18 07:34 Glucose (Fingerstick) 94 mg/dL (70-99) Assessment and Plan Assessmemt and Plan Problems Medical Problems: (1) Acute CVA (cerebrovascular accident) Status: Acute Comment Review of Relevant I have reviewed the following items samantha (where applicable) has been applied. Labs Laboratory Tests Test 06/25/18 09:25 06/25/18 11:38 06/25/18 16:32 06/25/18 21:10 Sodium Level 139 mmol/L (136-145) Potassium Level 3.9 mmol/L (3.5-5.1) Chloride Level 103 mmol/L (98-107) Carbon Dioxide Level 24 mmol/L (21-32) Anion Gap 12 (6-14) Blood Urea Nitrogen 11 mg/dL (7-20) Creatinine 1.1 mg/dL (0.6-1.0) Estimated GFR (Cockcroft-Gault) 49.5 Glucose Level 123 mg/dL (70-99) Calcium Level 8.5 mg/dL (8.5-10.1) Magnesium Level 1.5 mg/dL (1.8-2.4) Glucose (Fingerstick) 129 mg/dL (70-99) 127 mg/dL (70-99) 67 mg/dL (70-99) Test 06/26/18 03:30 06/26/18 07:03 06/26/18 11:30 06/26/18 17:04 Sodium Level 141 mmol/L (136-145) Potassium Level 3.7 mmol/L (3.5-5.1) Chloride Level 104 mmol/L (98-107) Carbon Dioxide Level 24 mmol/L (21-32) Anion Gap 13 (6-14) Blood Urea Nitrogen 11 mg/dL (7-20) Creatinine 1.0 mg/dL (0.6-1.0) Estimated GFR (Cockcroft-Gault) 55.3 Glucose Level 100 mg/dL (70-99) Calcium Level 8.4 mg/dL (8.5-10.1) Magnesium Level 2.5 mg/dL (1.8-2.4) Glucose (Fingerstick) 109 mg/dL (70-99) 110 mg/dL (70-99) 112 mg/dL (70-99) Test 06/26/18 20:14 06/27/18 03:35 06/27/18 07:34 Glucose (Fingerstick) 121 mg/dL (70-99) 94 mg/dL (70-99) White Blood Count 3.2 x10^3/uL (4.0-11.0) Red Blood Count 3.22 x10^6/uL (3.50-5.40) Hemoglobin 10.6 g/dL (12.0-15.5) Hematocrit 31.1 % (36.0-47.0) Mean Corpuscular Volume 96 fL (79-100) Mean Corpuscular Hemoglobin 33 pg (25-35) Mean Corpuscular Hemoglobin Concent 34 g/dL (31-37) Red Cell Distribution Width 13.3 % (11.5-14.5) Platelet Count 129 x10^3/uL (140-400) Neutrophils (%) (Auto) 51 % (31-73) Lymphocytes (%) (Auto) 37 % (24-48) Monocytes (%) (Auto) 8 % (0-9) Eosinophils (%) (Auto) 3 % (0-3) Basophils (%) (Auto) 1 % (0-3) Neutrophils # (Auto) 1.6 x10^3uL (1.8-7.7) Lymphocytes # (Auto) 1.2 x10^3/uL (1.0-4.8) Monocytes # (Auto) 0.2 x10^3/uL (0.0-1.1) Eosinophils # (Auto) 0.1 x10^3/uL (0.0-0.7) Basophils # (Auto) 0.0 x10^3/uL (0.0-0.2) Sodium Level 141 mmol/L (136-145) Potassium Level 3.7 mmol/L (3.5-5.1) Chloride Level 106 mmol/L (98-107) Carbon Dioxide Level 22 mmol/L (21-32) Anion Gap 13 (6-14) Blood Urea Nitrogen 9 mg/dL (7-20) Creatinine 0.8 mg/dL (0.6-1.0) Estimated GFR (Cockcroft-Gault) 71.5 Glucose Level 85 mg/dL (70-99) Calcium Level 8.5 mg/dL (8.5-10.1) Magnesium Level 2.0 mg/dL (1.8-2.4) Laboratory Tests Test 06/26/18 11:30 06/26/18 17:04 06/26/18 20:14 06/27/18 03:35 Glucose (Fingerstick) 110 mg/dL (70-99) 112 mg/dL (70-99) 121 mg/dL (70-99) White Blood Count 3.2 x10^3/uL (4.0-11.0) Red Blood Count 3.22 x10^6/uL (3.50-5.40) Hemoglobin 10.6 g/dL (12.0-15.5) Hematocrit 31.1 % (36.0-47.0) Mean Corpuscular Volume 96 fL (79-100) Mean Corpuscular Hemoglobin 33 pg (25-35) Mean Corpuscular Hemoglobin Concent 34 g/dL (31-37) Red Cell Distribution Width 13.3 % (11.5-14.5) Platelet Count 129 x10^3/uL (140-400) Neutrophils (%) (Auto) 51 % (31-73) Lymphocytes (%) (Auto) 37 % (24-48) Monocytes (%) (Auto) 8 % (0-9) Eosinophils (%) (Auto) 3 % (0-3) Basophils (%) (Auto) 1 % (0-3) Neutrophils # (Auto) 1.6 x10^3uL (1.8-7.7) Lymphocytes # (Auto) 1.2 x10^3/uL (1.0-4.8) Monocytes # (Auto) 0.2 x10^3/uL (0.0-1.1) Eosinophils # (Auto) 0.1 x10^3/uL (0.0-0.7) Basophils # (Auto) 0.0 x10^3/uL (0.0-0.2) Sodium Level 141 mmol/L (136-145) Potassium Level 3.7 mmol/L (3.5-5.1) Chloride Level 106 mmol/L (98-107) Carbon Dioxide Level 22 mmol/L (21-32) Anion Gap 13 (6-14) Blood Urea Nitrogen 9 mg/dL (7-20) Creatinine 0.8 mg/dL (0.6-1.0) Estimated GFR (Cockcroft-Gault) 71.5 Glucose Level 85 mg/dL (70-99) Calcium Level 8.5 mg/dL (8.5-10.1) Magnesium Level 2.0 mg/dL (1.8-2.4) Test 06/27/18 07:34 Glucose (Fingerstick) 94 mg/dL (70-99) Medications Current Medications Sodium Chloride 1,000 ml @ 1,000 mls/hr 1X ONCE IV Last administered on at 23:53; Start 06/21/18 at 22:00; Stop 06/21/18 at 22:59; Status DC Aspirin (Aspirin) 300 mg 1X ONCE AR Last administered on 06/21/18at 23:52; Start 06/21/18 at 23:30; Stop 06/21/18 at 23:31; Status DC Ondansetron HCl (Zofran) 4 mg PRN Q8HRS PRN IV NAUSEA/VOMITING; Start 06/21/18 at 23:30; Stop 06/22/18 at 23:29; Status DC Insulin Human Lispro (HumaLOG) 0-5 UNITS TIDWMEALS SQ Last administered on 06/24at 16:53; Start 06/22/18 at 08:00 Dextrose (Dextrose 50%-Water Syringe) 12.5 gm PRN Q15MIN PRN IV SEE COMMENTS Last administered on 06/25/18at 21:13; Start 06/21/18 at 23:30 Aspirin (Genesis Aspirin) 325 mg DAILYWBKFT PO Last administered on 06/26/18 08: 24; Start 06/22/18 at 11:00 Simvastatin (Zocor) 5 mg QHS PO Last administered on 06/26/18at 20:33; Start at 21:00 Acetaminophen/ Hydrocodone Bitart (Lortab 5/325) 1 tab PRN Q6HRS PRN PO MILD PAIN Last administered on 06/25/18 06:25; Start 06/22/18 at 15:00 Levothyroxine Sodium (Synthroid) 100 mcg DAILY07 PO Last administered on 06:00; Start 06/22/18 at 16:00 Lisinopril (Prinivil) 40 mg DAILY PO Last administered on 06/26/18 08:25; Start 06/22/18 at 16:00 Lorazepam (Ativan) 1 mg TID PRN PRN PO ANXIETY / AGITATION Last administered on 06/23/18 21:01; Start 06/22/18 at 15:00 Atenolol (Tenormin) 100 mg DAILY PO ; Start 06/22/18 at 16:00; Stop 06/22/18 at 16:00; Status DC Non-Formulary Medication (Glipizide/ Metformin Hcl (Glipizide-Metformin 2.5-500 Mg)) 1 each DAILYWSUP PO ; Start 06/22/18 at 17:00; Status UNV Non-Formulary Medication (Glipizide/ Metformin Hcl (Glipizide-Metformin 2.5-500 Mg)) 2 each DAILY PO ; Start 06/23/18 at 09:00; Status UNV Non-Formulary Medication (Metformin Hcl (Metformin Hcl Er)) 500 mg DAILYWBKFT PO ; Start 06/23/18 at 08:00; Status UNV Acetaminophen/ Hydrocodone Bitart (Lortab 5/325) 2 tab PRN Q6HRS PRN PO MODERATE-SEVERE PAIN Last administered on 06/23/18at 04:15; Start 06/22/18 at 15: 00 Amlodipine Besylate (Norvasc) 5 mg DAILY PO Last administered on 06/26/18 08: 25; Start 06/22/18 at 16:00 Metformin HCl (Glucophage) 1,000 mg DAILYWBKFT PO Last administered on 08:27; Start 06/23/18 at 08:00 Metformin HCl (Glucophage) 500 mg DAILYWSUP PO Last administered on 06/26/18 17:43; Start 06/22/18 at 17:00 Glipizide (Glucotrol) 5 mg DAILYWBKFT PO ; Start 06/23/18 at 08:00; Status Future Hold Glipizide (Glucotrol) 2.5 mg DAILYWSUP PO Last administered on 06/26/18at 17:47 ; Start 06/22/18 at 17:00 Dextrose (Dextrose 50%-Water Syringe) 25 gm 1X ONCE IV ; Start 06/23/18 at 00: 30; Stop 06/23/18 at 00:31; Status DC Lorazepam (Ativan) 1 mg PRN Q6HRS PRN IV ANXIETY / AGITATION; Start 06/23/18 at 20:45 Levetiracetam (Keppra) 500 mg BID PO Last administered on 06/26/18 20:33; Start 06/24/18 at 09:00 Levetiracetam (Keppra) 1,000 mg 1X ONCE PO Last administered on 06/23/18at 22: 53; Start 06/23/18 at 22:15; Stop 06/23/18 at 22:16; Status DC Potassium Chloride (Klor-Con) 40 meq 1X ONCE PO ; Start 06/24/18 at 13:30; Stop 06/24/18 at 13:31; Status DC Magnesium Oxide (Magnesium Oxide) 400 mg BID PO Last administered on 06/26/18at 20:34; Start 06/24/18 at 13:30 Potassium Chloride (KCl Oral Soln) 40 meq 1X ONCE PO Last administered on 06/24at 13:39; Start 06/24/18 at 13:45; Stop 06/24/18 at 13:46; Status DC Enoxaparin Sodium (Lovenox 40mg Syringe) 40 mg Q24H SQ Last administered on at 20:34; Start 06/24/18 at 20:00 Cetirizine HCl (ZyrTEC) 10 mg QHS PO Last administered on 06/26/18 20:33; Start 06/24/18 at 20:00 Hydralazine HCl (Apresoline) 25 mg PRN TID PRN PO HYPERTENSION, SEE COMMENTS Last administered on 06/26/18at 08:25; Start 06/24/18 at 23:00 Magnesium Sulfate/ Dextrose 100 ml @ 25 mls/hr 1X ONCE IV Last administered on 06/25/18at 13:03; Start 06/25/18 at 13:00; Stop 06/25/18 at 16:59; Status DC Sodium Chloride 1,000 ml @ 125 mls/hr Q8H IV Last administered on 06/26/18at 20 :35; Start 06/25/18 at 13:00 Clonidine HCl (Catapres Tts-2) 1 patch WEEKLY TD Last administered on at 20:34; Start 06/26/18 at 18:00 Hydrochlorothiazide (Microzide) 12.5 mg DAILY PO ; Start 06/27/18 at 09:00 Multivitamins 10 ml/Thiamine HCl 100 mg/Folic Acid 1 mg/Sodium Chloride 1,011.2 ml @ 100 mls/ hr DAILY IV Last administered on 06/27/18at 08:06; Start at 08:00; Stop 07/01/18 at 19:07 Lorazepam (Ativan) 2 mg PRN Q1HR PRN IV For CIWA 8-14; Start 06/27/18 at 07:30 Lorazepam (Ativan) 4 mg PRN Q1HR PRN IV For CIWA 15 or greater; Start 06/27/18 at 07:30 Active Scripts Active Reported Zyrtec (Cetirizine Hcl) 10 Mg Tablet 10 Mg PO DAILY PRN Prilosec Otc (Omeprazole Magnesium) 20 Mg Tablet.dr 20 Mg PO DAILY Hydrochlorothiazide Tablet (Hydrochlorothiazide) 12.5 Mg Tablet 12.5 Mg PO DAILY Lorazepam 1 Mg Tablet 1 Tab PO TID PRN PRN [place] 5-325 Tablet (Acetaminophen/Hydrocodone Bitart) 1 Each Tablet 1-2 Tab PO PRN Q4-6HRS PRN Glipizide-Metformin 2.5-500 Mg (Glipizide/Metformin Hcl) 1 Each Tablet 1 Each PO DAILYWSUP Glipizide-Metformin 2.5-500 Mg (Glipizide/Metformin Hcl) 1 Each Tablet 2 Each PO DAILY Atenolol 100 Mg Tablet 1 Tab PO DAILY Levothyroxine Sodium 100 Mcg Tablet 1 Tab PO DAILY Metformin Hcl Er (Metformin Hcl) 500 Mg Tab.er.24h 500 Mg PO DAILYWBKFT Lisinopril 40 Mg Tablet 1 Tab PO DAILY Vitals/I & O Vital Sign - Last 24 Hours 06/26/18 06/26/18 06/26/18 06/26/18 11:00 14:32 19:38 20:00 Temp 98.2 98.3 97.7 98.2 98.3 97.7 Pulse 67 61 65 Resp 16 16 20 B/P (MAP) 148/54 (85) 164/64 (97) 132/90 (104) Pulse Ox 98 98 100 O2 Delivery Room Air Room Air Room Air Room Air 06/26/18 06/26/18 06/27/18 06/27/18 23:12 23:38 03:48 07:00 Temp 98.0 98.4 98.0 98.4 Pulse 72 61 59 Resp 17 18 18 B/P (MAP) 198/76 (116) 184/68 (106) 198/86 (123) Pulse Ox 100 99 95 O2 Delivery Room Air Room Air Room Air Room Air Intake and Output 06/26/18 06/26/18 06/27/18 15:00 23:00 07:00 Intake Total 400 ml Balance 400 ml ARCHANA HAY MD Jun 27, 2018 08:55
[2018-06-27] MEDS: MAGNESIUM OXIDE 400 MG TABLET PO SCH ×2 (08:57→21:00)
[2018-06-27] MEDS: ASPIRIN 325 MG TABLET PO SCH (08:57)
[2018-06-27] MEDS: hydroCHLOROthiazide 12.5 MG CAPSULE PO SCH (08:57)
[2018-06-27] MEDS: levETIRAcetam 500 MG TABLET PO SCH ×2 (08:57→21:45)
[2018-06-27] MEDS: LISINOPRIL 20 MG TABLET PO SCH (08:57)
[2018-06-27] MEDS: metFORMIN 500 MG TABLET PO SCH ×2 (08:58→17:00)
[2018-06-27] MEDS: amLODIPine BESYLATE 10 MG TABLET PO SCH (09:04)
[2018-06-27 11:00] VITALS: BP 163/68
--- NOTE | 2018-06-27 11:07 | RAD ---
EXAM: Facial bones, 3 views. HISTORY: Facial pain. COMPARISON: None. FINDINGS: 3 views of the facial bones are obtained. There is no sinus opacification or air-fluid level. There is no significant nasal septal deviation. There is no suspicious lytic or sclerotic osseous lesion. IMPRESSION: No acute finding. Electronically signed by: Jennifer Salguero MD (06/27/2018 11:04 AM) [place] [id number]
[2018-06-27 15:00] VITALS: BP 180/76
[2018-06-27] MEDS: glipiZIDE 5 MG TABLET PO SCH (17:00)
--- NOTE | 2018-06-27 17:20 | PDOC ---
PROGRESS NOTES Assessment Assessment Subacute large left parietal and temporal infract. Cerebral edema surrounding infarct areas. Metabolic encephalopathy. Mixed aphasia. HTN. HLD. DM. Over weight. RECOMMENDATIONS/PLAN: Continue ASA 325 mg daily. Continue Zocor HS. FU with PCP. FU with Neurology after 1 month. Discussed in all detail with her son, daughter, son-in-law, [id number] and showed them MRI findings on 06/22/18. Discussed with her daughter again at bedside on 06/23/18. Carotid A US + Doppler: No high grade stenosis. Echo: Unremarkable. HISTORY OF THE PRESENT ILLNESS: 68-y-old female patient with Hx of HTN, HLD, DM was last known normal in the morning of 06/20/18. She was noted mental status changes with aphasia that evening, but did not search medical attention until next day to come to the ER on 06/21/18. Her HCT was abnormal for stroke but the age was undetermined. MRI showed large subacute infract. PAST MEDICAL HISTORY: HTN. HLD. DM. Over weight. PAST SURGERY HISTORY: No major surgery recently. ALLERGY: Unknown MEDICATIONS: Refer to [facility] FAMILY HISTORY: Non contributory. SOCIAL HISTORY: Lives at home with her grandson. Denies current smoking, drinking, and illicit drug use. REVIEW OF SYSTEMS: Constitutional: No malnutrition, weight loss, cachexia. Head: No traumatic brain or head injury. Skin: No edema, or rash. Ear: No infection. Eyes: No vision loss or color blindness. Nose: No bleeding or purulent discharges. Hearing: Hearing decrease. Neck: No injury. Breast: No history of cancer, masses,or discharges. Cardiac: HTN, HLD. Pulmonary: No COPD. GI: No GI ulcer, GI bleeding. Urinary/genital: UTI. Endocrinologic: Diabetes Mellitus? Skeletomuscular: No muscular atrophy, deformity. Neurological: see HP. Psychiatric: Denies drug use/abuse. Otherwise, not [id number] review of systems. PHYSICAL EXAMINATION: General appearance is in subacute distress. HEENT: Normocephalic and nontraumatic. Eyes, nose, ears, and throat are unremarkable. Neck is supple. No lymphadenopathy. No crepitus. Cardiovascular: S1, S2, regular rate and rhythm. Pulmonary: Clear to auscultation bilaterally. Abdomen: Bowel sounds are positive. Extremities: No rash, lesions, or edema. No restriction of range of motion NEUROLOGICAL EXAMINATION: Sleepiness but arousable. Able to understand and answer some questions. Mixed aphasia. Unable to communicate. Not fully oriented to time, place but knew person. PERRL. EOMI. CN: no focal findings. Muscle tone: within normal. Muscle strength: 5- DTR: 2- Plantar reflex: Neutral response bilaterally Gait: not examined in chair. Sensory exam: seemed decreased in right UE side, but improved since 06/23/18. Not cerebellar signs elicited. F-T-N test fine. Objective Objective Vital Signs Date Time Temp Pulse Resp B/P (MAP) Pulse Ox O2 Delivery O2 Flow Rate FiO2 06/27/18 15:00 98.0 55 16 180/76 (110) 98 Room Air 98.0 Intake and Output 06/27/18 07:00 Intake Total 400 ml Balance 400 ml Intake Oral 400 ml # Voids 4 Vitals Signs Vitals VS - Last 72 Hours, by Label Date Time Temp Pulse Resp B/P (MAP) Pulse Ox O2 Delivery O2 Flow Rate FiO2 06/27/18 15:00 98.0 55 16 180/76 (110) 98 Room Air 98.0 06/27/18 11:00 98.1 55 16 163/68 (99) 95 Room Air 98.1 06/27/18 09:04 59 198/86 06/27/18 08:57 59 198/86 06/27/18 08:00 Room Air 06/27/18 07:00 98.4 59 18 198/86 (123) 95 Room Air 98.4 06/27/18 03:48 98.0 61 18 184/68 (106) 99 Room Air 98.0 06/26/18 23:38 Room Air 06/26/18 23:12 72 17 198/76 (116) 100 Room Air 06/26/18 20:00 Room Air 06/26/18 19:38 97.7 65 20 132/90 (104) 100 Room Air 97.7 06/26/18 14:32 98.3 61 16 164/64 (97) 98 Room Air 98.3 06/26/18 11:00 98.2 67 16 148/54 (85) 98 Room Air 98.2 06/26/18 08:25 59 196/77 06/26/18 08:25 59 196/77 06/26/18 08:25 59 /06/26/18 08:00 Room Air 06/26/18 07:00 97.7 59 / (116) 99 Room Air 97.7 Laboratory Laboratory Laboratory Tests Test 06/26/18 20:14 06/27/18 03:35 06/27/18 07:34 06/27/18 11:24 Glucose (Fingerstick) 121 mg/dL (70-99) 94 mg/dL (70-99) 85 mg/dL (70-99) White Blood Count 3.2 x10^3/uL (4.0-11.0) Red Blood Count 3.22 x10^6/uL (3.50-5.40) Hemoglobin 10.6 g/dL (12.0-15.5) Hematocrit 31.1 % (36.0-47.0) Mean Corpuscular Volume 96 fL (79-100) Mean Corpuscular Hemoglobin 33 pg (25-35) Mean Corpuscular Hemoglobin Concent 34 g/dL (31-37) Red Cell Distribution Width 13.3 % (11.5-14.5) Platelet Count 129 x10^3/uL (140-400) Neutrophils (%) (Auto) 51 % (31-73) Lymphocytes (%) (Auto) 37 % (24-48) Monocytes (%) (Auto) 8 % (0-9) Eosinophils (%) (Auto) 3 % (0-3) Basophils (%) (Auto) 1 % (0-3) Neutrophils # (Auto) 1.6 x10^3uL (1.8-7.7) Lymphocytes # (Auto) 1.2 x10^3/uL (1.0-4.8) Monocytes # (Auto) 0.2 x10^3/uL (0.0-1.1) Eosinophils # (Auto) 0.1 x10^3/uL (0.0-0.7) Basophils # (Auto) 0.0 x10^3/uL (0.0-0.2) Sodium Level 141 mmol/L (136-145) Potassium Level 3.7 mmol/L (3.5-5.1) Chloride Level 106 mmol/L (98-107) Carbon Dioxide Level 22 mmol/L (21-32) Anion Gap 13 (6-14) Blood Urea Nitrogen 9 mg/dL (7-20) Creatinine 0.8 mg/dL (0.6-1.0) Estimated GFR (Cockcroft-Gault) 71.5 Glucose Level 85 mg/dL (70-99) Calcium Level 8.5 mg/dL (8.5-10.1) Magnesium Level 2.0 mg/dL (1.8-2.4) Test 06/27/18 17:05 Glucose (Fingerstick) 87 mg/dL (70-99) Medication Medications Current Medications Amlodipine Besylate (Norvasc) 10 mg DAILY PO Last administered on 06/27/18at 09: 04; Start 06/27/18 at 09:00 Clonidine HCl (Catapres Tts-2) 1 patch WEEKLY TD Last administered on at 20:34; Start 06/26/18 at 18:00 Hydrochlorothiazide (Microzide) 12.5 mg DAILY PO Last administered on at 08:57; Start 06/27/18 at 09:00 Lorazepam (Ativan) 2 mg PRN Q1HR PRN IV For CIWA 8-14; Start 06/27/18 at 07:30 Lorazepam (Ativan) 4 mg PRN Q1HR PRN IV For CIWA 15 or greater; Start 06/27/18 at 07:30 Multivitamins 10 ml/Thiamine HCl 100 mg/Folic Acid 1 mg/Sodium Chloride 1,011.2 ml @ 100 mls/ hr DAILY IV Last administered on 06/27/18at 08:06; Start at 08:00; Stop 07/01/18 at 19:07 Comment Review of Relevant I have reviewed the following items samantha (where applicable) has been applied. DOROTHY PAIZ MD Jun 27, 2018 17:20
[2018-06-27 19:55] VITALS: BP 166/54
[2018-06-27] MEDS: CETIRIZINE HCL 10 MG TABLET. PO SCH (21:45)
[2018-06-27] MEDS: ENOXAPARIN 40 MG/0.4 ML SYRINGE. SQ SCH (21:45)
[2018-06-27] MEDS: SIMVASTATIN 5 MG TABLET. PO SCH (21:45)
[2018-06-27 23:55] VITALS: BP 166/71
[2018-06-28] MEDS: IV NORMAL SALINE 1000ML BAG 1,000 ML IV SCH ×2 (02:21→06:09)
[2018-06-28 03:45] VITALS: BP 164/63
[2018-06-28] MEDS: LEVOTHYROXINE 100 MCG TABLET PO SCH (06:08)
[2018-06-28 07:00] VITALS: BP 171/66
[2018-06-28] MEDS: INSULIN LISPRO 300 UNITS/3 ML INSULN.PEN. SQ SCH ×2 (08:00→12:00)
[2018-06-28] MEDS: LISINOPRIL 20 MG TABLET PO SCH (08:31)
[2018-06-28] MEDS: MAGNESIUM OXIDE 400 MG TABLET PO SCH (08:31)
[2018-06-28] MEDS: ASPIRIN 325 MG TABLET PO SCH (08:31)
[2018-06-28] MEDS: amLODIPine BESYLATE 10 MG TABLET PO SCH (08:31)
[2018-06-28] MEDS: metFORMIN 500 MG TABLET PO SCH (08:31)
[2018-06-28] MEDS: hydroCHLOROthiazide 12.5 MG CAPSULE PO SCH (08:31)
[2018-06-28] MEDS: MULTIVIT INFUSN,ADULT 4,VIT K 10 ML, THIAMINE INJ 100 MG, FOLIC ACID INJ 1 MG in IV NOR... IV SCH (08:32)
[2018-06-28] MEDS: levETIRAcetam 500 MG TABLET PO SCH (08:33)
--- NOTE | 2018-06-28 09:17 | PDOC ---
PROGRESS NOTES Chief Complaint Chief Complaint A/P: Aphasia - based on CT head likely has a large left parietal and temporal CVA with receptive and expressive aphasia, seems to be feeling her right hand as though there is sensation loss. Does not follow commands at all. ASA, statin, Neurology consultation. 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 Hypokalemia - will replace, check mag Bilirubin elevated - will start bowel regimen HTN - restart home meds, add amlodipine DM2 - cont oral meds, add sliding scale Hypothyroidism - cont levothyroxine FEN - NPO pending [employer] evaluation PPX - Lovenox FULL CODE Inpatient for acute CVA, will need rehab services on d/c, inpatient likely 2 midnights 06/26 per my personal review of mri head images Large area of acute infarction is seen involving the left temporal and left parietal lobe 06/27 c/o weak director multiple sclerosis center bilaterally, appetite only fair 06/28 PER MY PERSONAL REVIEW OF IMAGES FOLLOWS : Large area of acute infarction is seen involving the left temporal and left parietal lobe . There is surrounding edema and associated mass effect without evidence of midline shift. History of Present Illness History of Present Illness Ms Alford is a 68yo F w/ PMHx HTN, DM2, hypothyroidism who presents with aphasia noted by her son this morning. Last seen normal Tuesday night 06/20. She makes meaningful eye contact She was writing "gibberish" according to her son as well and was very concerning. Came to hospital for further care. Potassium 3.2, Na 133 EKG to me showed NSR at 61bpm, NO ST elevation, baseline artifact noted to V5-V6 CT revealed wedge shaped hypodensity in left MCA territory parietal and temporal lobes, MRI confirmed. Subacute large left parietal and temporal infract. Cerebral edema surrounding infarct areas. Metabolic encephalopathy. 06/24: Seen by PT, ambulating well. Seen by OT, unable to follow any commands, has facial recognition, but no object recognition. Needs prompting even to use the restroom and to eat. She is verbalizing today, saying no. K 3.2 and mag 1.6 06/26 Pulled out IV. Has been working with PT on puzzles Urine dark and UOP decreased. Not taking PO well, does not recognize food 06/28 SLOW PROGRESS, NOT IMPROVED WITH APHASIA AND APRAXIA Plan: BP control, IV vasotec prn. Glycemic control Needs IV again Replace K and mag needs IV replacement. She is getting dehydrated Needs skilled services on D/c, does not appear she will be able to manage without 24/7 care currently, will consult SW Vitals Vitals Vital Signs Date Time Temp Pulse Resp B/P (MAP) Pulse Ox O2 Delivery O2 Flow Rate FiO2 06/28/18 08:31 52 171/66 06/28/18 07:00 98.1 20 96 Room Air 98.1 Physical Exam General: Alert, Cooperative, No acute distress, mild distress, Other (Does not follow commands) Heart: Regular rate, Normal S1, Normal S2 Lungs: Clear Abdomen: Normal bowel sounds, Soft, No tenderness, No hepatosplenomegaly, No masses Extremities: No clubbing, No cyanosis, No edema, Normal pulses, No tenderness/ swelling Skin: No rashes, No breakdown, No significant lesion Labs LABS MRI of the brain without contrast 06/22/2018 Clinical History: Altered mental status. Suspected acute stroke seen CT scan of the head from yesterday. Technique: Unenhanced T1-weighted sagittal and axial, T2-weighted axial and coronal and FLAIR, gradient echo and diffusion-weighted axial images of the brain were obtained. Findings: Comparison is made to the patient's CT scan of the head dated 06/21/2018. There is generalized parenchymal atrophy. Patchy, confluent and multiple focal areas of increased signal intensity are seen within the periventricular and subcortical white matter of both cerebral hemispheres on the FLAIR and T2-weighted images consistent with areas of small vessel ischemic disease. Old areas of infarction are seen involving both cerebellar hemispheres. These measure 3 mm to 9 mm in size. Old areas of lacunar infarction are seen involving the right thalamus. These measure 3 mm in size. Old areas of lacunar infarction are seen involving the white matter of the right frontoparietal lobe. These measure 5 mm to 1.2 cm in size. A large area of restricted diffusion is seen involving the left temporal lobe extending to involve the left parietal lobe. This measures 10 x 5.0 x 4.8 cm in AP, craniocaudal and transverse dimensions. This is consistent with an area of acute infarction. This is in a left MCA distribution. It corresponds to the low-attenuation area seen on the patient's CT scan. There is surrounding edema and associated mass effect without evidence of midline shift. No additional acute parenchymal abnormality is seen. No extra-axial fluid collection is noted. Mild mucosal thickening is seen scattered throughout ethmoid air cells bilaterally. There is a minimal right mastoid effusion. Diminished flow void is seen involving the left MCA trifurcation and its branches. IMPRESSION: Large area of acute infarction is seen involving the left temporal and left parietal lobe as outlined above. There is surrounding edema and associated mass effect without evidence of midline shift. Electronically signed by: Eduardo Schilling MD (06/22/2018 1:00 PM) [id number] Laboratory Tests Test 06/27/18 11:24 06/27/18 17:05 06/27/18 19:22 06/28/18 07:12 Glucose (Fingerstick) 85 mg/dL (70-99) 87 mg/dL (70-99) 148 mg/dL (70-99) 115 mg/dL (70-99) Assessment and Plan Assessmemt and Plan Problems Medical Problems: (1) Acute CVA (cerebrovascular accident) Status: Acute Comment Review of Relevant I have reviewed the following items samantha (where applicable) has been applied. Labs Laboratory Tests Test 06/26/18 11:30 06/26/18 17:04 06/26/18 20:14 06/27/18 03:35 Glucose (Fingerstick) 110 mg/dL (70-99) 112 mg/dL (70-99) 121 mg/dL (70-99) White Blood Count 3.2 x10^3/uL (4.0-11.0) Red Blood Count 3.22 x10^6/uL (3.50-5.40) Hemoglobin 10.6 g/dL (12.0-15.5) Hematocrit 31.1 % (36.0-47.0) Mean Corpuscular Volume 96 fL (79-100) Mean Corpuscular Hemoglobin 33 pg (25-35) Mean Corpuscular Hemoglobin Concent 34 g/dL (31-37) Red Cell Distribution Width 13.3 % (11.5-14.5) Platelet Count 129 x10^3/uL (140-400) Neutrophils (%) (Auto) 51 % (31-73) Lymphocytes (%) (Auto) 37 % (24-48) Monocytes (%) (Auto) 8 % (0-9) Eosinophils (%) (Auto) 3 % (0-3) Basophils (%) (Auto) 1 % (0-3) Neutrophils # (Auto) 1.6 x10^3uL (1.8-7.7) Lymphocytes # (Auto) 1.2 x10^3/uL (1.0-4.8) Monocytes # (Auto) 0.2 x10^3/uL (0.0-1.1) Eosinophils # (Auto) 0.1 x10^3/uL (0.0-0.7) Basophils # (Auto) 0.0 x10^3/uL (0.0-0.2) Sodium Level 141 mmol/L (136-145) Potassium Level 3.7 mmol/L (3.5-5.1) Chloride Level 106 mmol/L (98-107) Carbon Dioxide Level 22 mmol/L (21-32) Anion Gap 13 (6-14) Blood Urea Nitrogen 9 mg/dL (7-20) Creatinine 0.8 mg/dL (0.6-1.0) Estimated GFR (Cockcroft-Gault) 71.5 Glucose Level 85 mg/dL (70-99) Calcium Level 8.5 mg/dL (8.5-10.1) Magnesium Level 2.0 mg/dL (1.8-2.4) Test 06/27/18 07:34 06/27/18 11:24 06/27/18 17:05 06/27/18 19:22 Glucose (Fingerstick) 94 mg/dL (70-99) 85 mg/dL (70-99) 87 mg/dL (70-99) 148 mg/dL (70-99) Test 06/28/18 07:12 Glucose (Fingerstick) 115 mg/dL (70-99) Laboratory Tests Test 06/27/18 11:24 06/27/18 17:05 06/27/18 19:22 06/28/18 07:12 Glucose (Fingerstick) 85 mg/dL (70-99) 87 mg/dL (70-99) 148 mg/dL (70-99) 115 mg/dL (70-99) Medications Current Medications Sodium Chloride 1,000 ml @ 1,000 mls/hr 1X ONCE IV Last administered on at 23:53; Start 06/21/18 at 22:00; Stop 06/21/18 at 22:59; Status DC Aspirin (Aspirin) 300 mg 1X ONCE ME Last administered on 06/21/18 23:52; Start 06/21/18 at 23:30; Stop 06/21/18 at 23:31; Status DC Ondansetron HCl (Zofran) 4 mg PRN Q8HRS PRN IV NAUSEA/VOMITING; Start 06/21/18 at 23:30; Stop 06/22/18 at 23:29; Status DC Insulin Human Lispro (HumaLOG) 0-5 UNITS TIDWMEALS SQ Last administered on 06/24 16:53; Start 06/22/18 at 08:00 Dextrose (Dextrose 50%-Water Syringe) 12.5 gm PRN Q15MIN PRN IV SEE COMMENTS Last administered on 06/25/18 21:13; Start 06/21/18 at 23:30 Aspirin (Genesis Aspirin) 325 mg DAILYWBKFT PO Last administered on 06/28/18 08: 31; Start 06/22/18 at 11:00 Simvastatin (Zocor) 5 mg QHS PO Last administered on 06/27/18 21:45; Start at 21:00 Acetaminophen/ Hydrocodone Bitart (Lortab 5/325) 1 tab PRN Q6HRS PRN PO MILD PAIN Last administered on 06/25/18 06:25; Start 06/22/18 at 15:00 Levothyroxine Sodium (Synthroid) 100 mcg DAILY07 PO Last administered on 06:08; Start 06/22/18 at 16:00 Lisinopril (Prinivil) 40 mg DAILY PO Last administered on 06/28/18 08:31; Start 06/22/18 at 16:00 Lorazepam (Ativan) 1 mg TID PRN PRN PO ANXIETY / AGITATION Last administered on 06/23/18 21:01; Start 06/22/18 at 15:00 Atenolol (Tenormin) 100 mg DAILY PO ; Start 06/22/18 at 16:00; Stop 06/22/18 at 16:00; Status DC Non-Formulary Medication (Glipizide/ Metformin Hcl (Glipizide-Metformin 2.5-500 Mg)) 1 each DAILYWSUP PO ; Start 06/22/18 at 17:00; Status UNV Non-Formulary Medication (Glipizide/ Metformin Hcl (Glipizide-Metformin 2.5-500 Mg)) 2 each DAILY PO ; Start 06/23/18 at 09:00; Status UNV Non-Formulary Medication (Metformin Hcl (Metformin Hcl Er)) 500 mg DAILYWBKFT PO ; Start 06/23/18 at 08:00; Status UNV Acetaminophen/ Hydrocodone Bitart (Lortab 5/325) 2 tab PRN Q6HRS PRN PO MODERATE-SEVERE PAIN Last administered on 06/23/18at 04:15; Start 06/22/18 at 15: 00 Amlodipine Besylate (Norvasc) 5 mg DAILY PO Last administered on 06/26/18at 08: 25; Start 06/22/18 at 16:00; Stop 06/27/18 at 08:55; Status DC Metformin HCl (Glucophage) 1,000 mg DAILYWBKFT PO Last administered on at 08:31; Start 06/23/18 at 08:00 Metformin HCl (Glucophage) 500 mg DAILYWSUP PO Last administered on 06/26/18at 17:43; Start 06/22/18 at 17:00 Glipizide (Glucotrol) 5 mg DAILYWBKFT PO ; Start 06/23/18 at 08:00; Status Future Hold Glipizide (Glucotrol) 2.5 mg DAILYWSUP PO Last administered on 06/26/18at 17:47 ; Start 06/22/18 at 17:00 Dextrose (Dextrose 50%-Water Syringe) 25 gm 1X ONCE IV ; Start 06/23/18 at 00: 30; Stop 06/23/18 at 00:31; Status DC Lorazepam (Ativan) 1 mg PRN Q6HRS PRN IV ANXIETY / AGITATION; Start 06/23/18 at 20:45 Levetiracetam (Keppra) 500 mg BID PO Last administered on 06/28/18at 08:33; Start 06/24/18 at 09:00 Levetiracetam (Keppra) 1,000 mg 1X ONCE PO Last administered on 06/23/18at 22: 53; Start 06/23/18 at 22:15; Stop 06/23/18 at 22:16; Status DC Potassium Chloride (Klor-Con) 40 meq 1X ONCE PO ; Start 06/24/18 at 13:30; Stop 06/24/18 at 13:31; Status DC Magnesium Oxide (Magnesium Oxide) 400 mg BID PO Last administered on 06/28/18 08:31; Start 06/24/18 at 13:30 Potassium Chloride (KCl Oral Soln) 40 meq 1X ONCE PO Last administered on 06/24at 13:39; Start 06/24/18 at 13:45; Stop 06/24/18 at 13:46; Status DC Enoxaparin Sodium (Lovenox 40mg Syringe) 40 mg Q24H SQ Last administered on 21:45; Start 06/24/18 at 20:00 Cetirizine HCl (ZyrTEC) 10 mg QHS PO Last administered on 06/27/18 21:45; Start 06/24/18 at 20:00 Hydralazine HCl (Apresoline) 25 mg PRN TID PRN PO HYPERTENSION, SEE COMMENTS Last administered on 06/26/18 08:25; Start 06/24/18 at 23:00 Magnesium Sulfate/ Dextrose 100 ml @ 25 mls/hr 1X ONCE IV Last administered on 06/25/18 13:03; Start 06/25/18 at 13:00; Stop 06/25/18 at 16:59; Status DC Sodium Chloride 1,000 ml @ 80 mls/hr [id number] IV Last administered on 06:09; Start 06/25/18 at 13:00 Clonidine HCl (Catapres Tts-2) 1 patch WEEKLY TD Last administered on 20:34; Start 06/26/18 at 18:00 Hydrochlorothiazide (Microzide) 12.5 mg DAILY PO Last administered on 08:31; Start 06/27/18 at 09:00 Multivitamins 10 ml/Thiamine HCl 100 mg/Folic Acid 1 mg/Sodium Chloride 1,011.2 ml @ 100 mls/ hr DAILY IV Last administered on 06/28/18 08:32; Start at 08:00; Stop 07/01/18 at 19:07 Lorazepam (Ativan) 2 mg PRN Q1HR PRN IV For CIWA 8-14; Start 06/27/18 at 07:30 Lorazepam (Ativan) 4 mg PRN Q1HR PRN IV For CIWA 15 or greater; Start 06/27/18 at 07:30 Amlodipine Besylate (Norvasc) 10 mg DAILY PO Last administered on 06/28/18at 08: 31; Start 06/27/18 at 09:00 Active Scripts Active Reported Zyrtec (Cetirizine Hcl) 10 Mg Tablet 10 Mg PO DAILY PRN Prilosec Otc (Omeprazole Magnesium) 20 Mg Tablet.dr 20 Mg PO DAILY Hydrochlorothiazide Tablet (Hydrochlorothiazide) 12.5 Mg Tablet 12.5 Mg PO DAILY Lorazepam 1 Mg Tablet 1 Tab PO TID PRN PRN Margie 5-325 Tablet (Acetaminophen/Hydrocodone Bitart) 1 Each Tablet 1-2 Tab PO PRN Q4-6HRS PRN Glipizide-Metformin 2.5-500 Mg (Glipizide/Metformin Hcl) 1 Each Tablet 1 Each PO DAILYWSUP Glipizide-Metformin 2.5-500 Mg (Glipizide/Metformin Hcl) 1 Each Tablet 2 Each PO DAILY Atenolol 100 Mg Tablet 1 Tab PO DAILY Levothyroxine Sodium 100 Mcg Tablet 1 Tab PO DAILY Metformin Hcl Er (Metformin Hcl) 500 Mg Tab.er.24h 500 Mg PO DAILYWBKFT Lisinopril 40 Mg Tablet 1 Tab PO DAILY Vitals/I & O Vital Sign - Last 24 Hours 06/27/18 06/27/18 06/27/18 06/27/18 11:00 15:00 19:55 20:00 Temp 98.1 98.0 98.2 98.1 98.0 98.2 Pulse 55 55 65 Resp 16 16 18 B/P (MAP) 163/68 (99) 180/76 (110) 166/54 (91) Pulse Ox 95 98 98 O2 Delivery Room Air Room Air Room Air Room Air 06/27/18 06/28/18 06/28/18 06/28/18 23:55 03:45 07:00 08:31 Temp 98.0 98.3 98.1 98.0 98.3 98.1 Pulse 67 59 52 52 Resp 18 20 20 B/P (MAP) 166/71 (102) 164/63 (96) 171/66 (101) 171/66 Pulse Ox 97 96 96 O2 Delivery Room Air Room Air Room Air 06/28/18 08:31 Pulse 52 B/P (MAP) 171/ Intake and Output 06/27/18 06/27/18 06/28/18 15:00 23:00 07:00 Intake Total 330 ml 380 ml 100 ml Balance 330 ml 380 ml 100 ml ARCHANA HAY MD Jun 28, 2018 09:17
--- NOTE | 2018-06-28 09:22 | NUR ---
SW following pt. Spoke with Darlyn at [facility] and insurance has declined acute rehab but has approved skilled. Spoke with Noemi who is concerned as pt does not have a safe dc plan after skilled. SW spoke with pt's daughter, Lena and discussed other SNU options ([facility] and [facility]). Daughter agreeable with [facility]. SW phoned and faxed referral to [facility]. Pt acceptance and admission pending. Will continue to follow.
--- NOTE | 2018-06-28 14:36 | NUR ---
SW following pt. Pt has been accepted at [facility] and Insurance auth has approved skilled. EZEKIEL phoned and faxed orders to [facility]. Packet on chart. Pt will transport via facility arranged transport at 1600. Pt's daughter, Lena notified of plan and agreeable. RN notified.
[2018-06-28 15:00] VITALS: BP 160/65
--- NOTE | 2018-06-28 16:25 | NUR ---
Discharge Note: [facility] Discharge instructions and discharge home medications reviewed with [facility] and a copy given. All questions have been answered and understanding verbalized. Discontinued lines and drains: Peripheral IV intact. [facility] with facility personnel via Wheelchair. NIH at discharge 9.
--- NOTE | 2018-06-28 19:15 | PDOC ---
PROGRESS NOTES Assessment Assessment Subacute large left parietal and temporal infract. Cerebral edema surrounding infarct areas. Metabolic encephalopathy. Mixed aphasia. HTN. HLD. DM. Over weight. RECOMMENDATIONS/PLAN: Continue ASA 325 mg daily. Continue Zocor HS. Speech therapy. SNU. FU with PCP. FU with Neurology after 1 month. Discussed in all detail with her son, daughter, son-in-law, [id number] and showed them MRI findings on 06/22/18. Discussed with her daughter again at bedside on 06/23/18. Carotid A US + Doppler: No high grade stenosis. Echo: Unremarkable. HISTORY OF THE PRESENT ILLNESS: 68-y-old female patient with Hx of HTN, HLD, DM was last known normal in the morning of 06/20/18. She was noted mental status changes with aphasia that evening, but did not search medical attention until next day to come to the ER on 06/21/18. Her HCT was abnormal for stroke but the age was undetermined. MRI showed large subacute infract. PAST MEDICAL HISTORY: HTN. HLD. DM. Over weight. PAST SURGERY HISTORY: No major surgery recently. ALLERGY: Unknown MEDICATIONS: Refer to [facility] FAMILY HISTORY: Non contributory. SOCIAL HISTORY: Lives at home with her grandson. Denies current smoking, drinking, and illicit drug use. REVIEW OF SYSTEMS: Constitutional: No malnutrition, weight loss, cachexia. Head: No traumatic brain or head injury. Skin: No edema, or rash. Ear: No infection. Eyes: No vision loss or color blindness. Nose: No bleeding or purulent discharges. Hearing: Hearing decrease. Neck: No injury. Breast: No history of cancer, masses,or discharges. Cardiac: HTN, HLD. Pulmonary: No COPD. GI: No GI ulcer, GI bleeding. Urinary/genital: UTI. Endocrinologic: Diabetes Mellitus? Skeletomuscular: No muscular atrophy, deformity. Neurological: see HP. Psychiatric: Denies drug use/abuse. Otherwise, not [id number] review of systems. PHYSICAL EXAMINATION: General appearance is in subacute distress. HEENT: Normocephalic and nontraumatic. Eyes, nose, ears, and throat are unremarkable. Neck is supple. No lymphadenopathy. No crepitus. Cardiovascular: S1, S2, regular rate and rhythm. Pulmonary: Clear to auscultation bilaterally. Abdomen: Bowel sounds are positive. Extremities: No rash, lesions, or edema. No restriction of range of motion NEUROLOGICAL EXAMINATION: Awake. Unable to understand nor answer questions. Mixed aphasia. Unable to communicate. Not oriented to time, place but knew person. PERRL. EOMI. CN: no focal findings. Muscle tone: within normal. Muscle strength: 5- DTR: 2- Plantar reflex: Neutral response bilaterally Gait: not examined in bed. Sensory exam: seemed decreased in right UE side, but improved since 06/23/18. Not cerebellar signs elicited. F-T-N test fine. Objective Objective Vital Signs Date Time Temp Pulse Resp B/P (MAP) Pulse Ox O2 Delivery O2 Flow Rate FiO2 06/28/18 15:00 98.0 67 16 160/65 (96) 96 Room Air 98.0 06/28/18 08:00 2.0 Intake and Output 06/28/18 07:00 Intake Total 810 ml Balance 810 ml Intake Oral 810 ml # Voids 7 Vitals Signs Vitals VS - Last 72 Hours, by Label Date Time Temp Pulse Resp B/P (MAP) Pulse Ox O2 Delivery O2 Flow Rate FiO2 06/28/18 15:00 98.0 67 16 160/65 (96) 96 Room Air 98.0 06/28/18 08:31 52 171/66 06/28/18 08:31 52 171/66 06/28/18 08:00 Room Air 2.0 06/28/18 07:00 98.1 52 20 171/66 (101) 96 Room Air 98.1 06/28/18 03:45 98.3 59 20 164/63 (96) 96 Room Air 98.3 06/27/18 23:55 98.0 67 18 166/71 (102) 97 Room Air 98.0 06/27/18 20:00 Room Air 06/27/18 19:55 98.2 65 18 166/54 (91) 98 Room Air 98.2 06/27/18 15:00 98.0 55 16 180/76 (110) 98 Room Air 98.0 06/27/18 11:00 98.1 55 16 163/68 (99) 95 Room Air 98.1 06/27/18 09:04 59 198/86 06/27/18 08:57 59 198/86 06/27/18 08:00 Room Air 06/27/18 07:00 98.4 59 18 198/86 (123) 95 Room Air 98.4 Laboratory Laboratory Laboratory Tests Test 06/27/18 19:22 06/28/18 07:12 06/28/18 12:02 Glucose (Fingerstick) 148 mg/dL (70-99) 115 mg/dL (70-99) 102 mg/dL (70-99) Comment Review of Relevant I have reviewed the following items samantha (where applicable) has been applied. DOROTHY PAIZ MD Jun 28, 2018 19:15
--- NOTE | 2018-07-14 13:32 | PDOC3 ---
Discharge Summary Date of Discharge: Jun 28, 2018 Follow-Up: 1-2 days Admitting Diagnosis comment: discharge dx Chief Complaint A/P: Aphasia - based on CT head likely has a large left parietal and temporal CVA with receptive and expressive aphasia, seems to be feeling her right hand as though there is sensation loss. Does not follow commands at all. ASA, statin, Neurology consultation. 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 PT/OT/[employer] Hypokalemia - will replace, check mag Bilirubin elevated - will start bowel regimen HTN - restart home meds, add amlodipine DM2 - cont oral meds, add sliding scale Hypothyroidism - cont levothyroxine FEN - NPO pending [employer] evaluation PPX - Lovenox FULL CODE Inpatient for acute CVA, will need rehab services on d/c, inpatient likely 2 midnights 06/26 per my personal review of mri head images Large area of acute infarction is seen involving the left temporal and left parietal lobe 06/27 c/o weak craniologist bilaterally, appetite only fair 06/28 PER MY PERSONAL REVIEW OF IMAGES FOLLOWS : Large area of acute infarction is seen involving the left temporal and left parietal lobe . There is surrounding edema and associated mass effect without evidence of midline shift. History of Present Illness History of Present Illness Ms Alford is a 68yo F w/ PMHx HTN, DM2, hypothyroidism who presents with aphasia noted by her son this morning. Last seen normal Tuesday night 06/20. She makes meaningful eye contact She was writing "gibberish" according to her son as well and was very concerning. Came to hospital for further care. Potassium 3.2, Na 133 EKG to me showed NSR at 61bpm, NO ST elevation, baseline artifact noted to V5-V6 CT revealed wedge shaped hypodensity in left MCA territory parietal and temporal lobes, MRI confirmed. Subacute large left parietal and temporal infract. Cerebral edema surrounding infarct areas. Metabolic encephalopathy. 06/24: Seen by PT, ambulating well. Seen by OT, unable to follow any commands, has facial recognition, but no object recognition. Needs prompting even to use the restroom and to eat. She is verbalizing today, saying no. K 3.2 and mag 1.6 06/26 Pulled out IV. Has been working with PT on puzzles Urine dark and UOP decreased. Not taking PO well, does not recognize food 06/28 SLOW PROGRESS, NOT IMPROVED WITH APHASIA AND APRAXIA Plan: BP control, IV vasotec prn. Glycemic control Needs IV again Replace K and mag needs IV replacement. She is getting dehydrated Needs skilled services on D/c, does not appear she will be able to manage without 24/7 care currently, will consult Vitals FINAL DIAGNOSIS Problems Medical Problems: (1) Acute CVA (cerebrovascular accident) Status: Acute Brief Hospital Course Ms. Alford is a 68 old [sex] who presented with [cva ] CONDITION AT DISCHARGE: Comment (to snf bed/rehab) Discharge Medications Current Medications Sodium Chloride 1,000 ml @ 1,000 mls/hr 1X ONCE IV Last administered on at 23:53; Start 06/21/18 at 22:00; Stop 06/21/18 at 22:59; Status DC Aspirin (Aspirin) 300 mg 1X ONCE SC Last administered on 06/21/18at 23:52; Start 06/21/18 at 23:30; Stop 06/21/18 at 23:31; Status DC Ondansetron HCl (Zofran) 4 mg PRN Q8HRS PRN IV NAUSEA/VOMITING; Start 06/21/18 at 23:30; Stop 06/22/18 at 23:29; Status DC Insulin Human Lispro (HumaLOG) 0-5 UNITS TIDWMEALS SQ Last administered on 06/24at 16:53; Start 06/22/18 at 08:00; Stop 06/28/18 at 16:29; Status DC Dextrose (Dextrose 50%-Water Syringe) 12.5 gm PRN Q15MIN PRN IV SEE COMMENTS Last administered on 06/25/18 21:13; Start 06/21/18 at 23:30; Stop 06/28/18 at 16:29; Status DC Aspirin (Genesis Aspirin) 325 mg DAILYWBKFT PO Last administered on 06/28/18at 08: 31; Start 06/22/18 at 11:00; Stop 06/28/18 at 16:29; Status DC Simvastatin (Zocor) 5 mg QHS PO Last administered on 06/27/18 21:45; Start at 21:00; Stop 06/28/18 at 16:29; Status DC Acetaminophen/ Hydrocodone Bitart (Lortab 5/325) 1 tab PRN Q6HRS PRN PO MILD PAIN Last administered on 06/25/18at 06:25; Start 06/22/18 at 15:00; Stop at 16:29; Status DC Levothyroxine Sodium (Synthroid) 100 mcg DAILY07 PO Last administered on at 06:08; Start 06/22/18 at 16:00; Stop 06/28/18 at 16:29; Status DC Lisinopril (Prinivil) 40 mg DAILY PO Last administered on 06/28/18at 08:31; Start 06/22/18 at 16:00; Stop 06/28/18 at 16:29; Status DC Lorazepam (Ativan) 1 mg TID PRN PRN PO ANXIETY / AGITATION Last administered on 06/23/18at 21:01; Start 06/22/18 at 15:00; Stop 06/28/18 at 16:29; Status DC Atenolol (Tenormin) 100 mg DAILY PO ; Start 06/22/18 at 16:00; Stop 06/22/18 at 16:00; Status DC Non-Formulary Medication (Glipizide/ Metformin Hcl (Glipizide-Metformin 2.5-500 Mg)) 1 each DAILYWSUP PO ; Start 06/22/18 at 17:00; Status UNV Non-Formulary Medication (Glipizide/ Metformin Hcl (Glipizide-Metformin 2.5-500 Mg)) 2 each DAILY PO ; Start 06/23/18 at 09:00; Status UNV Non-Formulary Medication (Metformin Hcl (Metformin Hcl Er)) 500 mg DAILYWBKFT PO ; Start 06/23/18 at 08:00; Status UNV Acetaminophen/ Hydrocodone Bitart (Lortab 5/325) 2 tab PRN Q6HRS PRN PO MODERATE-SEVERE PAIN Last administered on 06/23/18at 04:15; Start 06/22/18 at 15: 00; Stop 06/28/18 at 16:29; Status DC Amlodipine Besylate (Norvasc) 5 mg DAILY PO Last administered on 06/26/18at 08: 25; Start 06/22/18 at 16:00; Stop 06/27/18 at 08:55; Status DC Metformin HCl (Glucophage) 1,000 mg DAILYWBKFT PO Last administered on at 08:31; Start 06/23/18 at 08:00; Stop 06/28/18 at 16:29; Status DC Metformin HCl (Glucophage) 500 mg DAILYWSUP PO Last administered on 06/26/18at 17:43; Start 06/22/18 at 17:00; Stop 06/28/18 at 16:29; Status DC Glipizide (Glucotrol) 5 mg DAILYWBKFT PO ; Start 06/23/18 at 08:00; Stop at 16:29; Status DC Glipizide (Glucotrol) 2.5 mg DAILYWSUP PO Last administered on 06/26/18at 17:47 ; Start 06/22/18 at 17:00; Stop 06/28/18 at 16:29; Status DC Dextrose (Dextrose 50%-Water Syringe) 25 gm 1X ONCE IV ; Start 06/23/18 at 00: 30; Stop 06/23/18 at 00:31; Status DC Lorazepam (Ativan) 1 mg PRN Q6HRS PRN IV ANXIETY / AGITATION; Start 06/23/18 at 20:45; Stop 06/28/18 at 16:29; Status DC Levetiracetam (Keppra) 500 mg BID PO Last administered on 06/28/18at 08:33; Start 06/24/18 at 09:00; Stop 06/28/18 at 16:29; Status DC Levetiracetam (Keppra) 1,000 mg 1X ONCE PO Last administered on 06/23/18at 22: 53; Start 06/23/18 at 22:15; Stop 06/23/18 at 22:16; Status DC Potassium Chloride (Klor-Con) 40 meq 1X ONCE PO ; Start 06/24/18 at 13:30; Stop 06/24/18 at 13:31; Status DC Magnesium Oxide (Magnesium Oxide) 400 mg BID PO Last administered on 06/28/18at 08:31; Start 06/24/18 at 13:30; Stop 06/28/18 at 16:29; Status DC Potassium Chloride (KCl Oral Soln) 40 meq 1X ONCE PO Last administered on 06/24at 13:39; Start 06/24/18 at 13:45; Stop 06/24/18 at 13:46; Status DC Enoxaparin Sodium (Lovenox 40mg Syringe) 40 mg Q24H SQ Last administered on at 21:45; Start 06/24/18 at 20:00; Stop 06/28/18 at 16:29; Status DC Cetirizine HCl (ZyrTEC) 10 mg QHS PO Last administered on 06/27/18at 21:45; Start 06/24/18 at 20:00; Stop 06/28/18 at 16:29; Status DC Hydralazine HCl (Apresoline) 25 mg PRN TID PRN PO HYPERTENSION, SEE COMMENTS Last administered on 06/26/18at 08:25; Start 06/24/18 at 23:00; Stop 06/28/18 at 16:29; Status DC Magnesium Sulfate/ Dextrose 100 ml @ 25 mls/hr 1X ONCE IV Last administered on 06/25/18at 13:03; Start 06/25/18 at 13:00; Stop 06/25/18 at 16:59; Status DC Sodium Chloride 1,000 ml @ 80 mls/hr [id number] IV Last administered on at 06:09; Start 06/25/18 at 13:00; Stop 06/28/18 at 16:29; Status DC Clonidine HCl (Catapres Tts-2) 1 patch WEEKLY TD Last administered on at 20:34; Start 06/26/18 at 18:00; Stop 06/28/18 at 16:29; Status DC Hydrochlorothiazide (Microzide) 12.5 mg DAILY PO Last administered on at 08:31; Start 06/27/18 at 09:00; Stop 06/28/18 at 16:29; Status DC Multivitamins 10 ml/Thiamine HCl 100 mg/Folic Acid 1 mg/Sodium Chloride 1,011.2 ml @ 100 mls/ hr DAILY IV Last administered on 06/28/18at 08:32; Start at 08:00; Stop 06/28/18 at 16:29; Status DC Lorazepam (Ativan) 2 mg PRN Q1HR PRN IV For CIWA 8-14; Start 06/27/18 at 07:30 ; Stop 06/28/18 at 16:29; Status DC Lorazepam (Ativan) 4 mg PRN Q1HR PRN IV For CIWA 15 or greater; Start 06/27/18 at 07:30; Stop 06/28/18 at 16:29; Status DC Amlodipine Besylate (Norvasc) 10 mg DAILY PO Last administered on 06/28/18at 08: 31; Start 06/27/18 at 09:00; Stop 06/28/18 at 16:29; Status DC Active Scripts Active Reported Zyrtec (Cetirizine Hcl) 10 Mg Tablet 10 Mg PO DAILY PRN Prilosec Otc (Omeprazole Magnesium) 20 Mg Tablet.dr 20 Mg PO DAILY Hydrochlorothiazide Tablet (Hydrochlorothiazide) 12.5 Mg Tablet 12.5 Mg PO DAILY Lorazepam 1 Mg Tablet 1 Tab PO TID PRN PRN [place] 5-325 Tablet (Acetaminophen/Hydrocodone Bitart) 1 Each Tablet 1-2 Tab PO PRN Q4-6HRS PRN Glipizide-Metformin 2.5-500 Mg (Glipizide/Metformin Hcl) 1 Each Tablet 1 Each PO DAILYWSUP Glipizide-Metformin 2.5-500 Mg (Glipizide/Metformin Hcl) 1 Each Tablet 2 Each PO DAILY Atenolol 100 Mg Tablet 1 Tab PO DAILY Levothyroxine Sodium 100 Mcg Tablet 1 Tab PO DAILY Metformin Hcl Er (Metformin Hcl) 500 Mg Tab.er.24h 500 Mg PO DAILYWBKFT Lisinopril 40 Mg Tablet 1 Tab PO DAILY Allergies Allergies Coded Allergies Type Severity Reaction Last Updated Verified Influenza Virus Vaccines Allergy Unknown Hives 06/23/18 Yes atorvastatin Allergy Unknown Diarrhea 06/23/18 Yes erythromycin base Allergy Unknown Unknown 06/23/18 Yes metoprolol Allergy Unknown Unknown 06/23/18 Yes Patient Instructions d/c planning 37 min ARCHANA HAY MD Jul 14, 2018 13:32
[2018-07-20] MEDS ORDERED: ASPI325T11 PO (15:17)
== END 2018-06-28 16:25 | DRG 64 ==
LOC: ER 21:46 → 6 SOUTH 23:20
PROVIDERS: ADMIT Internal Medicine; ATTEND Internal Medicine
DX: I63.9 Cerebral infarction, unspecified (principal); G93.6 Cerebral edema; G93.41 Metabolic encephalopathy; E03.9 Hypothyroidism, unspecified; E11.9 Type 2 diabetes mellitus without complications; F41.9 Anxiety disorder, unspecified; I10 Essential (primary) hypertension; E87.6 Hypokalemia; E78.5 Hyperlipidemia, unspecified; E66.3 Overweight; Z68.26 Body mass index [BMI] 26.0-26.9, adult; Z88.7 Allergy status to serum and vaccine; Z88.8 Allergy status to other drugs, medicaments and biological substances; Z79.82 Long term (current) use of aspirin; Z90.49 Acquired absence of other specified parts of digestive tract; Z86.73 Personal history of transient ischemic attack (TIA), and cerebral infarction without residual deficits; Z83.3 Family history of diabetes mellitus
CPT/HCPCS: 36415; 70150; 70450; 70551; 71045; 80048; 80053; 80061; 80307; 81001; 82140; 82553; 82962; 83605; 83735; 84484; 85025; 85610; 85730; 93005; 93306; 93880; 99291; G0480; J1650; J1815; J3475; J7030; J7042; 92507; 92523; 92610; 97530; 97535

== ENCOUNTER 2018-07-17 21:29 | Inpatient (IN) | payer OTHER ==
[~2018-07-17] VITALS: Ht 149.9 cm; Wt 62.1 kg
[~2018-07-17 21:29] MED LIST: ATEN100T PO; CETI10TA22 PO; GLIP1TAB4 PO; HYDR-3164 PO; HYDR12.58 PO; LEVO100T5 PO; LISI-130 PO; LORA1TAB PO; METF500T9 PO; OMEP20TA63 PO
--- NOTE | 2018-07-17 21:53 | PHYS DOC ---
Past Medical History Past Medical History: Anxiety, CVA, Diabetes-Type II, Hypertension Past Surgical History: Appendectomy, Cholecystectomy Alcohol Use: Occasionally Drug Use: None Adult General Chief Complaint Chief Complaint: NEURO SYMPTOMS/DEFICITS HPI HPI Patient is a 68 year old female brought in by family with a chief complaint of right arm weakness just not acting right around 6:30 PM this patient had been admitted for a left sided stroke June 21 went home and residual deficit was mainly speech problems according to the family. Discharge summary does note a 4 out of 5 strength on the right upper extremity however. Apparently she got into the bathtub okay a little bit before 6:30 and then was having trouble getting out by herself they were worried she was having another stroke so they brought her to the ER. Otherwise she has been well recently they say she is eating and drinking okay denies any other pain but the history is limited by the patient's aphasia. Review of Systems Review of Systems Limited by the patient's aphasia Allergies Allergies Physical Exam Physical Exam Constitutional: Well developed, well nourished, no acute distress, non-toxic appearance. [] HENT: Normocephalic, atraumatic, bilateral external ears normal, oropharynx dry , no oral exudates, nose normal. [] Eyes: PERRLA, EOMI, conjunctiva normal, no discharge. [] Neck: Normal range of motion, no tenderness, supple, no stridor. [] Cardiovascular:Heart rate regular rhythm, no murmur [] Lungs & Thorax: Bilateral breath sounds clear to auscultation [] Abdomen: Bowel sounds normal, soft, no tenderness, no masses, no pulsatile masses. [] Skin: Warm, dry, no erythema, no rash. [] Back: No tenderness, no CVA tenderness. [] Extremities: No tenderness, no cyanosis, no clubbing, ROM intact, no edema. [] Neurologic C stroke scale Current Patient Data Vital Signs Vital Signs Date Time Temp Pulse Resp B/P (MAP) Pulse Ox O2 Delivery O2 Flow Rate FiO2 07/17/18 23:07 54 100 07/17/18 21:35 98.5 18 90/58 (69) Room Air 98.5 Lab Values Laboratory Tests Test 07/17/18 21:40 07/17/18 21:46 White Blood Count 4.8 x10^3/uL (4.0-11.0) Red Blood Count 3.29 x10^6/uL (3.50-5.40) L Hemoglobin 10.3 g/dL (12.0-15.5) L Hematocrit 30.7 % (36.0-47.0) L Mean Corpuscular Volume 93 fL (79-100) Mean Corpuscular Hemoglobin 31 pg (25-35) Mean Corpuscular Hemoglobin Concent 34 g/dL (31-37) Red Cell Distribution Width 13.1 % (11.5-14.5) Platelet Count 148 x10^3/uL (140-400) Neutrophils (%) (Auto) 61 % (31-73) Lymphocytes (%) (Auto) 31 % (24-48) Monocytes (%) (Auto) 6 % (0-9) Eosinophils (%) (Auto) 2 % (0-3) Basophils (%) (Auto) 0 % (0-3) Neutrophils # (Auto) 2.9 x10^3uL (1.8-7.7) Lymphocytes # (Auto) 1.5 x10^3/uL (1.0-4.8) Monocytes # (Auto) 0.3 x10^3/uL (0.0-1.1) Eosinophils # (Auto) 0.1 x10^3/uL (0.0-0.7) Basophils # (Auto) 0.0 x10^3/uL (0.0-0.2) Prothrombin Time 14.0 SEC (11.7-14.0) Prothrombin Time INR 1.1 (0.8-1.1) Sodium Level 130 mmol/L (136-145) L Potassium Level 4.3 mmol/L (3.5-5.1) Chloride Level 95 mmol/L (98-107) L Carbon Dioxide Level 20 mmol/L (21-32) L Anion Gap 15 (6-14) H Blood Urea Nitrogen 63 mg/dL (7-20) H Creatinine 3.5 mg/dL (0.6-1.0) H Estimated GFR (Cockcroft-Gault) 13.0 BUN/Creatinine Ratio 18 (6-20) Glucose Level 107 mg/dL (70-99) H Calcium Level 9.3 mg/dL (8.5-10.1) Total Bilirubin 1.0 mg/dL (0.2-1.0) Aspartate Amino Transferase (AST) 50 U/L (15-37) H Alanine Aminotransferase (ALT) 64 U/L (14-59) H Alkaline Phosphatase 209 U/L (46-116) H Total Protein 8.3 g/dL (6.4-8.2) H Albumin 3.6 g/dL (3.4-5.0) Albumin/Globulin Ratio 0.8 (1.0-1.7) L Glucose (Fingerstick) 101 mg/dL (70-99) H Laboratory Tests 07/17/18 21:40 Laboratory Tests 07/17/18 21:40 EKG EKG []EKG shows a normal sinus rhythm rate of 52 no STEMI was identified this was interpreted by me the timing encounter Radiology/Procedures Radiology/Procedures [] Impressions: Impression: 1. Expected maturation of previously seen left temporal occipital lobe stroke. 2. Probable petechial hemorrhage. No gross hematoma. PQRS Compliance Statement: One or more of the following individualized dose reduction techniques were utilized for this examination: 1. Automated exposure control 2. Adjustment of the mA and/or kV according to patient size 3. Use of iterative reconstruction technique Electronically signed by: Clifton Uribe III, MD (07/17/2018 10:03 PM) [facility] Course & Med Decision Making Course & Med Decision Making Pertinent Labs and Imaging studies reviewed. (See chart for details) []History of anxiety diabetes hypertension recent CVA on aspirin only presenting with worsening weakness family thinks it's more on the right side however she did have this before perhaps her weakness is secondary to new renal failure patient was admitted for IV hydration and further observation and treatment routine consultation to nephrology was placed. Noted the head CT read this is a normal expected evolution no acute new bleed was identified. I did speak briefly with Dr. Dawn over the telephone who confirmed of course given the recent history that no TPA would be indicated this was prior to the results of the lab work. admit to [facility] per usual local protocll noted on chart dictation 4 am possibl uti, ordered dose of abx. Dragon Disclaimer Dragon Disclaimer This electronic medical record was generated, in whole or in part, using a voice recognition dictation system. Departure Departure Impression: Primary Impression: Renal failure Disposition: ADMITTED INPATIENT Admitting Physician: Other Condition: STABLE Referrals: NEFTALY HUNT MD (PCP) NIHSS Stroke Scale NIH Stroke Scale: NIH Stroke Scale Response (Comments) Value Level of Consciousness: 0 Alert/Responsive 0 LOC Questions: 2 Answers neither correct 2 LOC Commands: 1 Performs one task 1 Best Gaze: 0 Normal 0 Visual: 0 No visual loss 0 Facial Palsy: 0 Normal, symmetrical 0 Motor - Left Arm 0 No drift 0 Motor - Right Arm 1 Drifts but can hold 1 Motor - Left Leg 0 No drift 0 Motor: Right Leg 0 No drift 0 Limb Ataxia: 0 Absent 0 Sensory: 0 No loss 0 Best Language: 2 Severe aphasia 2 Dysathria: 1 Mild to moderate 1 Extinction and Inattention: 0 Normal 0 Total 7 YAMILE PEREZ MD Jul 17, 2018 21:53
--- NOTE | 2018-07-17 22:05 | RAD ---
CT Head W/O Contrast: History: PREVIOUS STROKE; RIGHT SIDED WEAKNESS Comparison: June 24, 2018 Axial images were obtained without contrast. There has been maturation of the left temporal occipital stroke which is now smaller and shows less edema. There is subtle hyperattenuation suggesting petechial hemorrhage. The remaining howard and white matter appears normal and symmetrical for the patients age. There is no mass effect, extraaxial fluid collections or hydrocephalus. There is no gross bleed. There is no focal loss of howard-white matter distinction to suggest acute ischemia, i.e. stroke. Impression: 1. Expected maturation of previously seen left temporal occipital lobe stroke. 2. Probable petechial hemorrhage. No gross hematoma. PQRS Compliance Statement: One or more of the following individualized dose reduction techniques were utilized for this examination: 1. Automated exposure control 2. Adjustment of the mA and/or kV according to patient size 3. Use of iterative reconstruction technique Electronically signed by: Clifton Uribe III, MD (07/17/2018 10:03 PM) [facility]
[2018-07-17 22:19] LABS: BASO % 0 % (0-3); EOS # 0.1 x10^3/uL (0.0-0.7); EOS % 2 % (0-3); HEMATOCRIT 30.7 % (36.0-47.0); HEMOGLOBIN 10.3 g/dL (12.0-15.5); LYMPH # 1.5 x10^3/uL (1.0-4.8); LYMPH % 31 % (24-48); MEAN CORPUSCULAR HEMOGLOBIN 31 pg (25-35); MEAN CORPUSCULAR HGB CONC 34 g/dL (31-37); MEAN CORPUSCULAR VOLUME 93 fL (79-100); MONO # 0.3 x10^3/uL (0.0-1.1); MONO % 6 % (0-9); NEUT # 2.9 x10^3uL (1.8-7.7); NEUT % 61 % (31-73); PLATELET COUNT 148 x10^3/uL (140-400); RED BLOOD COUNT 3.29 x10^6/uL (3.50-5.40); RED CELL DISTRIBUTION WIDTH 13.1 % (11.5-14.5); WHITE BLOOD COUNT 4.8 x10^3/uL (4.0-11.0)
[2018-07-17 22:36] LABS: CALCIUM 9.3 mg/dL (8.5-10.1); CREATININE 3.5 mg/dL (0.6-1.0); POTASSIUM 4.3 mmol/L (3.5-5.1)
[2018-07-17 22:40] LABS: ALBUMIN 3.6 g/dL (3.4-5.0); ALBUMIN/GLOBULIN RATIO 0.8 (1.0-1.7); TOTAL PROTEIN 8.3 g/dL (6.4-8.2)
[2018-07-17] MEDS ORDERED: IV NORMAL SALINE 1000ML BAG 1,000 ML IV ONE (23:33)
[2018-07-18] MEDS ORDERED: IV NORMAL SALINE 1000ML BAG 1,000 ML IV SCH
[2018-07-18 01:03] LABS: BILIRUBIN,URINE NEGATIVE (NEG); CLARITY,URINE CLEAR; COLOR,URINE YELLOW; NITRITE,URINE NEGATIVE (NEG); PROTEIN,URINE NEGATIVE (NEG-TRACE)
[2018-07-18 01:20] LABS: BACTERIA,URINE FEW /HPF (0-FEW); RBC,URINE 0 /HPF (0-2); SQUAMOUS EPITHELIAL CELL,UR FEW /LPF
[2018-07-18 01:21] LABS: AMORPHOUS SEDIMENT,UR PRESENT /HPF; HYALINE CASTS, URINE FEW /HPF
--- NOTE | 2018-07-18 01:34 | EKG ---
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
[2018-07-18 03:26] VITALS: BP 99/50
[2018-07-18] MEDS ORDERED: cefTRIAXone IV Push 1 GM VIAL. IVP ONE (04:30)
[2018-07-18] MEDS ORDERED: HYDR-2868 PO (04:38)
[2018-07-18] MEDS ORDERED: SIMV5TAB14 PO (04:38)
[2018-07-18] MEDS ORDERED: METF500T16 PO (04:38)
[2018-07-18] MEDS ORDERED: CLON1PAT2 TD (04:38)
[2018-07-18] MEDS ORDERED: AMLO10TA8 PO (04:38)
[2018-07-18] MEDS ORDERED: LISI40TA2 PO (04:38)
[2018-07-18] MEDS ORDERED: GLIP5TAB10 PO (04:38)
[2018-07-18 07:00] VITALS: BP 103/51
[2018-07-18 07:52] LABS: ALBUMIN 3.3 g/dL (3.4-5.0); ALBUMIN/GLOBULIN RATIO 0.8 (1.0-1.7); CALCIUM 9.3 mg/dL (8.5-10.1); CREATININE 2.7 mg/dL (0.6-1.0); GFR 17.6; POTASSIUM 4.8 mmol/L (3.5-5.1); TOTAL BILIRUBIN 1.1 mg/dL (0.2-1.0); TOTAL PROTEIN 7.7 g/dL (6.4-8.2)
--- NOTE | 2018-07-18 07:56 | PDOC1 ---
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 Discharge summary does note a 4 out of 5 strength on the right upper extremity however. Apparently she got into the bathtub okay a little bit before 6:30 and then was having trouble getting out by herself they were worried she was having another stroke so they brought her to the ER. Otherwise she has been well recently they say she is eating and drinking okay denies any other pain but the history is limited by the patient's aphasia. CT revealed wedge shaped hypodensity in left MCA territory parietal and temporal lobes. Past Medical History Cardiovascular: HTN Pulmonary: No pertinent hx GI: No pertinent hx Heme/Onc: No pertinent hx Hepatobiliary: No pertinent hx Psych: No pertinent hx Musculoskeletal: low back pain Rheumatologic: No pertinent hx Infectious disease: No pertinent hx Renal/: No pertinent hx Endocrine: Diabetes, Hyperthyroidism Past Surgical History Past Surgical History: No pertinent history Family History Family History: Diabetes, Hypothyroidism Social History ALCOHOL: rare Drugs: None Current Medications Current Medications Current Medications Sodium Chloride 1,000 ml @ 1,000 mls/hr 1X ONCE IV ; Start 07/17/18 at 23:33; Stop 07/18/18 at 00:32; Status DC Sodium Chloride 1,000 ml @ 100 mls/hr Q10H IV Last administered on 07/18/18at 02:11; Start 07/18/18 at 00:00; Stop 07/18/18 at 00:01; Status DC Ceftriaxone Sodium (Rocephin) 1 gm 1X ONCE IVP Last administered on 07/18/18at 05:26; Start 07/18/18 at 04:30; Stop 07/18/18 at 04:31; Status DC Active Scripts Active Reported Lisinopril 40 Mg Tablet 1 Tab PO DAILY Amlodipine Besylate 10 Mg Tablet 1 Tab PO DAILY Simvastatin 5 Mg Tablet 1 Tab PO HS Metformin Hcl 500 Mg Tablet 1 Tab PO DAILY Glipizide 5 Mg Tablet 1 Tab PO DAILY Clonidine Tts-2 (Clonidine) 1 Each Patch.tdwk 1 Patch TD Q3DAYS Hydralazine Hcl 25 Mg Tablet 1 Tab PO Q8HRS PRN Zyrtec (Cetirizine Hcl) 10 Mg Tablet 10 Mg PO DAILY PRN Prilosec Otc (Omeprazole Magnesium) 20 Mg Tablet.dr 20 Mg PO DAILY Hydrochlorothiazide Tablet (Hydrochlorothiazide) 12.5 Mg Tablet 12.5 Mg PO DAILY Lorazepam 1 Mg Tablet 1 Tab PO TID PRN PRN [place] 5-325 Tablet (Acetaminophen/Hydrocodone Bitart) 1 Each Tablet 1-2 Tab PO PRN Q4-6HRS PRN Glipizide-Metformin 2.5-500 Mg (Glipizide/Metformin Hcl) 1 Each Tablet 1 Each PO DAILYWSUP Glipizide-Metformin 2.5-500 Mg (Glipizide/Metformin Hcl) 1 Each Tablet 2 Each PO DAILY Atenolol 100 Mg Tablet 1 Tab PO DAILY Levothyroxine Sodium 100 Mcg Tablet 1 Tab PO DAILY Metformin Hcl Er (Metformin Hcl) 500 Mg Tab.er.24h 500 Mg PO DAILYWBKFT Lisinopril 40 Mg Tablet 1 Tab PO DAILY Allergies Allergies: Coded Allergies: Influenza Virus Vaccines (Verified Allergy, Intermediate, Hives, 07/17/18) erythromycin base (Verified Allergy, Intermediate, 07/17/18) metoprolol (Verified Allergy, Intermediate, 07/17/18) atorvastatin (Verified Allergy, Mild, Diarrhea, 07/17/18) ROS Review of System Unable to obtain secondary to patient with aphasia. Does not follow commands or give appropriate answers. Physical Exam General: Alert, No acute distress HEENT: Atraumatic, PERRLA, EOMI, Mucous membr. moist/pink Lungs: Clear to auscultation, Normal air movement Heart: S1S2, RRR, irregularly irregular Abdomen: Normal bowel sounds, Soft, No tenderness, No hepatosplenomegaly, No masses Rectal Exam: not examined Extremities: No clubbing, No cyanosis, No edema, Normal pulses, No tenderness/ swelling Skin: No rashes, No breakdown, No significant lesion Neuro: Normal tone, Sensation intact, Cranial nerves 3-12 NL, Other (Leans right on walking, slightly decreased strength on right leg raise) Vitals Vitals Vital Signs Date Time Temp Pulse Resp B/P (MAP) Pulse Ox O2 Delivery O2 Flow Rate FiO2 07/18/18 03:26 97.6 51 18 99/50 (66) 100 Room Air 97.6 Labs Labs Laboratory Tests Test 07/17/18 21:40 07/17/18 21:46 07/18/18 00:50 White Blood Count 4.8 x10^3/uL (4.0-11.0) Red Blood Count 3.29 x10^6/uL (3.50-5.40) Hemoglobin 10.3 g/dL (12.0-15.5) Hematocrit 30.7 % (36.0-47.0) Mean Corpuscular Volume 93 fL (79-100) Mean Corpuscular Hemoglobin 31 pg (25-35) Mean Corpuscular Hemoglobin Concent 34 g/dL (31-37) Red Cell Distribution Width 13.1 % (11.5-14.5) Platelet Count 148 x10^3/uL (140-400) Neutrophils (%) (Auto) 61 % (31-73) Lymphocytes (%) (Auto) 31 % (24-48) Monocytes (%) (Auto) 6 % (0-9) Eosinophils (%) (Auto) 2 % (0-3) Basophils (%) (Auto) 0 % (0-3) Neutrophils # (Auto) 2.9 x10^3uL (1.8-7.7) Lymphocytes # (Auto) 1.5 x10^3/uL (1.0-4.8) Monocytes # (Auto) 0.3 x10^3/uL (0.0-1.1) Eosinophils # (Auto) 0.1 x10^3/uL (0.0-0.7) Basophils # (Auto) 0.0 x10^3/uL (0.0-0.2) Prothrombin Time 14.0 SEC (11.7-14.0) Prothromb Time International Ratio 1.1 (0.8-1.1) Sodium Level 130 mmol/L (136-145) Potassium Level 4.3 mmol/L (3.5-5.1) Chloride Level 95 mmol/L (98-107) Carbon Dioxide Level 20 mmol/L (21-32) Anion Gap 15 (6-14) Blood Urea Nitrogen 63 mg/dL (7-20) Creatinine 3.5 mg/dL (0.6-1.0) Estimated GFR (Cockcroft-Gault) 13.0 BUN/Creatinine Ratio 18 (6-20) Glucose Level 107 mg/dL (70-99) Calcium Level 9.3 mg/dL (8.5-10.1) Total Bilirubin 1.0 mg/dL (0.2-1.0) Aspartate Amino Transf (AST/SGOT) 50 U/L (15-37) Alanine Aminotransferase (ALT/SGPT) 64 U/L (14-59) Alkaline Phosphatase 209 U/L (46-116) Total Protein 8.3 g/dL (6.4-8.2) Albumin 3.6 g/dL (3.4-5.0) Albumin/Globulin Ratio 0.8 (1.0-1.7) Glucose (Fingerstick) 101 mg/dL (70-99) Urine Collection Type U cath Urine Color Yellow Urine Clarity Clear Urine pH 5.0 Urine Specific [place] 1.015 Urine Protein Negative mg/dL (NEG-TRACE) Urine Glucose (UA) Negative mg/dL (NEG) Urine Ketones (Stick) Negative mg/dL (NEG) Urine Blood Negative (NEG) Urine Nitrite Negative (NEG) Urine Bilirubin Negative (NEG) Urine Urobilinogen Dipstick 1.0 mg/dL (0.2 mg/dL) Urine Leukocyte Esterase Moderate (NEG) Urine RBC 0 /HPF (0-2) Urine WBC 5-10 /HPF (0-4) Urine Squamous Epithelial Cells Few /LPF Urine Amorphous Sediment Present /HPF Urine Bacteria Few /HPF (0-FEW) Urine Hyaline Casts Few /HPF Urine Mucus Mod /LPF Laboratory Tests Test 07/17/18 21:40 07/17/18 21:46 07/18/18 00:50 White Blood Count 4.8 x10^3/uL (4.0-11.0) Red Blood Count 3.29 x10^6/uL (3.50-5.40) Hemoglobin 10.3 g/dL (12.0-15.5) Hematocrit 30.7 % (36.0-47.0) Mean Corpuscular Volume 93 fL (79-100) Mean Corpuscular Hemoglobin 31 pg (25-35) Mean Corpuscular Hemoglobin Concent 34 g/dL (31-37) Red Cell Distribution Width 13.1 % (11.5-14.5) Platelet Count 148 x10^3/uL (140-400) Neutrophils (%) (Auto) 61 % (31-73) Lymphocytes (%) (Auto) 31 % (24-48) Monocytes (%) (Auto) 6 % (0-9) Eosinophils (%) (Auto) 2 % (0-3) Basophils (%) (Auto) 0 % (0-3) Neutrophils # (Auto) 2.9 x10^3uL (1.8-7.7) Lymphocytes # (Auto) 1.5 x10^3/uL (1.0-4.8) Monocytes # (Auto) 0.3 x10^3/uL (0.0-1.1) Eosinophils # (Auto) 0.1 x10^3/uL (0.0-0.7) Basophils # (Auto) 0.0 x10^3/uL (0.0-0.2) Prothrombin Time 14.0 SEC (11.7-14.0) Prothromb Time International Ratio 1.1 (0.8-1.1) Sodium Level 130 mmol/L (136-145) Potassium Level 4.3 mmol/L (3.5-5.1) Chloride Level 95 mmol/L (98-107) Carbon Dioxide Level 20 mmol/L (21-32) Anion Gap 15 (6-14) Blood Urea Nitrogen 63 mg/dL (7-20) Creatinine 3.5 mg/dL (0.6-1.0) Estimated GFR (Cockcroft-Gault) 13.0 BUN/Creatinine Ratio 18 (6-20) Glucose Level 107 mg/dL (70-99) Calcium Level 9.3 mg/dL (8.5-10.1) Total Bilirubin 1.0 mg/dL (0.2-1.0) Aspartate Amino Transf (AST/SGOT) 50 U/L (15-37) Alanine Aminotransferase (ALT/SGPT) 64 U/L (14-59) Alkaline Phosphatase 209 U/L (46-116) Total Protein 8.3 g/dL (6.4-8.2) Albumin 3.6 g/dL (3.4-5.0) Albumin/Globulin Ratio 0.8 (1.0-1.7) Glucose (Fingerstick) 101 mg/dL (70-99) Urine Collection Type U cath Urine Color Yellow Urine Clarity Clear Urine pH 5.0 Urine Specific [place] 1.015 Urine Protein Negative mg/dL (NEG-TRACE) Urine Glucose (UA) Negative mg/dL (NEG) Urine Ketones (Stick) Negative mg/dL (NEG) Urine Blood Negative (NEG) Urine Nitrite Negative (NEG) Urine Bilirubin Negative (NEG) Urine Urobilinogen Dipstick 1.0 mg/dL (0.2 mg/dL) Urine Leukocyte Esterase Moderate (NEG) Urine RBC 0 /HPF (0-2) Urine WBC 5-10 /HPF (0-4) Urine Squamous Epithelial Cells Few /LPF Urine Amorphous Sediment Present /HPF Urine Bacteria Few /HPF (0-FEW) Urine Hyaline Casts Few /HPF Urine Mucus Mod /LPF Images Images CT head 1. Expected maturation of previously seen left temporal occipital lobe stroke. 2. Probable petechial hemorrhage. No gross hematoma. VTE Prophylaxis Ordered VTE Prophylaxis Devices: Yes VTE Pharmacological Prophylaxi: Yes Assessment/Plan Assessment/Plan A/P: Aphasia - based on CT head has a large left parietal and temporal CVA with receptive and expressive aphasia, seems to be feeling her right hand as though there is sensation loss. Does not follow commands at all. ASA, statin, Neurology consultation. MRI to confirm evolution and worsening infarct. PT/OT/ SUPPLY SPECIALIST Hypokalemia - will replace, check mag Bilirubin elevated - will start bowel regimen HTN - restart home meds, add amlodipine DM2 - cont oral meds, add sliding scale Hypothyroidism - cont levothyroxine Bradycardia - this looks like slow afib or flutter, will have cardiology to evaluate as this is her second episode of CVA in a short time Hypotension - orthostatics positive - IVF resuscitation FEN - NPO pending SUPPLY SPECIALIST evaluation PPX - Lovenox FULL CODE Inpatient for acute CVA, will need rehab services on d/c, inpatient likely 2 midnights PÉREZ DEE MD Jul 18, 2018 07:56
--- NOTE | 2018-07-18 08:00 | NUR ---
Chart review done and spoke w/ RN. Pt w/ history of CVA with aphasia. RN feels pt would benefit from PT/OT Eval and treat. RN indicated move to LTC is being considered. Addendum: 07/18/18 at 0801 by KAUR SARAVIA OT Amended: Links added.
[2018-07-18] MEDS ORDERED: ACETAMINOPHEN 325 MG TABLET. PO PRN (08:45)
[2018-07-18] MEDS ORDERED: ACETAMINOPHEN 650 MG SUPP.RECT. PR PRN (08:45)
[2018-07-18] MEDS ORDERED: IV NORMAL SALINE 1000ML BAG 1,000 ML IV ONE (09:45)
[2018-07-18] MEDS ORDERED: LORazepam 1 MG TABLET PO PRN (10:15)
[2018-07-18] MEDS ORDERED: CETIRIZINE HCL 10 MG TABLET. PO PRN (10:15)
[2018-07-18] MEDS ORDERED: HYDROcodone/APAP 5/325MG 1 TAB TABLET PO PRN (10:15)
--- NOTE | 2018-07-18 10:21 | NUR ---
Bedside Swallow evaluation completed. Please refer to full report for additional details. Impressions: Functional swallow for modified diet d/t edentulous status. No overt or subtle s/s aspiration across consistencies. Today's evaluation consistent w/ 06/20 swallow evaluation which also indicated functional swallow. Pt continues w/ global aphasia that is somewhat improved from 06/20. Recommendations: Dysphagia II diet w/ thin liquids, general swallow precautions and intermittent supervision/assist. No further ST f/u for dysphagia indicated at this time. D/w Lola
[2018-07-18 10:40] VITALS: BP 99/47
[2018-07-18] MEDS: LISINOPRIL 20 MG TABLET PO SCH (11:00)
[2018-07-18] MEDS ORDERED: cloNIDine TTS-2 1 PATCH PATCH TD SCH (11:00)
[2018-07-18] MEDS ORDERED: amLODIPine BESYLATE 10 MG TABLET PO SCH (11:00)
[2018-07-18] MEDS ORDERED: hydroCHLOROthiazide 12.5 MG CAPSULE PO SCH (11:00)
[2018-07-18] MEDS: PANTOPRAZOLE 40 MG TABLET.DR. PO SCH (12:17)
[2018-07-18] MEDS: glipiZIDE 5 MG TABLET PO SCH (12:17)
[2018-07-18] MEDS: LEVOTHYROXINE 100 MCG TABLET PO SCH (12:17)
[2018-07-18] MEDS: ASPIRIN ENTERIC COATED 325 MG TABLET.DR. PO SCH (12:17)
--- NOTE | 2018-07-18 12:28 | PDOC2 ---
CONSULT Date of Consult Date of Consult DATE: 07/18/18 TIME: 12:15 Reason for Consult Reason for Consult: RENAL FAILURE Source Source: Chart review History of Present Illness Reason for Visit: Hx Obtained from chart review , Pt apears Confused ? baseline 68 year old C female brought in by family with a chief complaint of right arm weakness just not acting right . She was hospitalized for left sided stroke June 21 went home and residual deficit was mainly speech problems according to the family. Apparently she got into the bathtub okay a little bit before 6:30 and then was having trouble getting out by herself they were worried she was having another stroke so they brought her to the ER. Otherwise she has been well recently they say she is eating and drinking okay denies any other pain but the history is limited by the patient's aphasia. She was writing "gibberish" according to her son as well and was very concerning. CT revealed wedge shaped hypodensity in left MCA territory parietal and temporal lobes, Elevated Creatinine Past Medical History Cardiovascular: HTN Pulmonary: No pertinent hx GI: No pertinent hx Heme/Onc: No pertinent hx Hepatobiliary: No pertinent hx Psych: No pertinent hx Musculoskeletal: low back pain Rheumatologic: No pertinent hx Infectious disease: No pertinent hx Renal/: No pertinent hx Endocrine: Diabetes, Hyperthyroidism Past Surgical History Past Surgical History: No pertinent history Family History Family History: Diabetes, Hypothyroidism Social History ALCOHOL: rare Drugs: None Current Medications Current Medications Current Medications Sodium Chloride 1,000 ml @ 1,000 mls/hr 1X ONCE IV ; Start 07/17/18 at 23:33; Stop 07/18/18 at 00:32; Status DC Sodium Chloride 1,000 ml @ 100 mls/hr Q10H IV Last administered on 07/18/18at 02:11; Start 07/18/18 at 00:00; Stop 07/18/18 at 00:01; Status DC Ceftriaxone Sodium (Rocephin) 1 gm 1X ONCE IVP Last administered on 07/18/18at 05:26; Start 07/18/18 at 04:30; Stop 07/18/18 at 04:31; Status DC Acetaminophen (Tylenol) 650 mg PRN Q6HRS PRN PO TEMP > 100.4F; Start 07/18/18 at 08:45 Acetaminophen (Tylenol Supp) 650 mg PRN Q4HRS PRN SD TEMP > 100.4F; Start 07/18 at 08:45 Aspirin (Ecotrin) 325 mg DAILYWBKFT PO ; Start 07/18/18 at 09:30 Sodium Chloride 1,000 ml @ 100 mls/hr 1X ONCE IV ; Start 07/18/18 at 09:45; Stop 07/18/18 at 19:44 Amlodipine Besylate (Norvasc) 10 mg DAILY PO ; Start 07/18/18 at 11:00 Cetirizine HCl (ZyrTEC) 10 mg PRN DAILY PRN PO ALLERGIES; Start 07/18/18 at 10: 15 Clonidine HCl (Catapres Tts-2) 1 patch WEEKLY TD ; Start 07/18/18 at 11:00 Glipizide (Glucotrol) 5 mg DAILY PO ; Start 07/18/18 at 11:00 Acetaminophen/ Hydrocodone Bitart (Lortab 5/325) 1 tab PRN Q6HRS PRN PO PAIN; Start 07/18/18 at 10:15 Levothyroxine Sodium (Synthroid) 100 mcg DAILY07 PO ; Start 07/18/18 at 11:00 Lisinopril (Prinivil) 40 mg DAILY PO ; Start 07/18/18 at 11:00 Lorazepam (Ativan) 1 mg TID PRN PRN PO ANXIETY / AGITATION; Start 07/18/18 at 10:15 Simvastatin (Zocor) 5 mg HS PO ; Start 07/18/18 at 21:00 Hydralazine HCl (Apresoline) 25 mg PRN TID PRN PO HYPERTENSION; Start 07/18/18 at 14:00 Hydrochlorothiazide (Microzide) 12.5 mg DAILY PO ; Start 07/18/18 at 11:00 Non-Formulary Medication (Metformin Hcl ) 1 tab DAILY PO ; Start 07/19/18 at 09: 00; Status UNV Pantoprazole Sodium (Protonix) 40 mg DAILYAC PO ; Start 07/18/18 at 11:00 Active Scripts Active Reported Lisinopril 40 Mg Tablet 1 Tab PO DAILY Amlodipine Besylate 10 Mg Tablet 1 Tab PO DAILY Simvastatin 5 Mg Tablet 1 Tab PO HS Metformin Hcl 500 Mg Tablet 1 Tab PO DAILY Glipizide 5 Mg Tablet 1 Tab PO DAILY Clonidine Tts-2 (Clonidine) 1 Each Patch.tdwk 1 Patch TD Q3DAYS Hydralazine Hcl 25 Mg Tablet 1 Tab PO Q8HRS PRN Zyrtec (Cetirizine Hcl) 10 Mg Tablet 10 Mg PO DAILY PRN Prilosec Otc (Omeprazole Magnesium) 20 Mg Tablet.dr 20 Mg PO DAILY Hydrochlorothiazide Tablet (Hydrochlorothiazide) 12.5 Mg Tablet 12.5 Mg PO DAILY Lorazepam 1 Mg Tablet 1 Tab PO TID PRN PRN [place] 5-325 Tablet (Acetaminophen/Hydrocodone Bitart) 1 Each Tablet 1-2 Tab PO PRN Q4-6HRS PRN Glipizide-Metformin 2.5-500 Mg (Glipizide/Metformin Hcl) 1 Each Tablet 1 Each PO DAILYWSUP Glipizide-Metformin 2.5-500 Mg (Glipizide/Metformin Hcl) 1 Each Tablet 2 Each PO DAILY Atenolol 100 Mg Tablet 1 Tab PO DAILY Levothyroxine Sodium 100 Mcg Tablet 1 Tab PO DAILY Metformin Hcl Er (Metformin Hcl) 500 Mg Tab.er.24h 500 Mg PO DAILYWBKFT Lisinopril 40 Mg Tablet 1 Tab PO DAILY Allergies Allergies: Coded Allergies: Influenza Virus Vaccines (Verified Allergy, Intermediate, Hives, 07/17/18) erythromycin base (Verified Allergy, Intermediate, 07/17/18) metoprolol (Verified Allergy, Intermediate, 07/17/18) atorvastatin (Verified Allergy, Mild, Diarrhea, 07/17/18) ROS Review of System As per HPI Physical Exam Physical Exam GEN: NAD HEEN: OM mildly dry NECK: supple CVS: RRR RESP: CTA GI: BS + ve, NO Bruit, Non Tender, : No CVA tenderness, No Suprapubic Tenderness Skin No Rash Neuro- Confused? Baseline Vital Signs Vital Signs Date Time Temp Pulse Resp B/P (MAP) Pulse Ox O2 Delivery O2 Flow Rate FiO2 07/18/18 11:00 50 99/47 07/18/18 10:40 98.1 16 99 Room Air 98.1 Assessment & Plan TIFFANIE - dehydration , Hypotensive Multiple antihypertensives at home , UA unremarkable Creatinine improving with IVF Monitor Strict I/O , Hold antihypertensives Renal US tomorrow if persistent TIFFANIE , baseline Creat was normal at recent admission HTN- multiple antihypertensives at home Currently Low BP Hyponatremia- mild, Improved Discussed with RN, No family at bedside Labs Labs Laboratory Tests Test 07/17/18 21:40 07/17/18 21:46 07/18/18 00:50 07/18/18 04:15 White Blood Count 4.8 x10^3/uL (4.0-11.0) Red Blood Count 3.29 x10^6/uL (3.50-5.40) Hemoglobin 10.3 g/dL (12.0-15.5) Hematocrit 30.7 % (36.0-47.0) Mean Corpuscular Volume 93 fL (79-100) Mean Corpuscular Hemoglobin 31 pg (25-35) Mean Corpuscular Hemoglobin Concent 34 g/dL (31-37) Red Cell Distribution Width 13.1 % (11.5-14.5) Platelet Count 148 x10^3/uL (140-400) Neutrophils (%) (Auto) 61 % (31-73) Lymphocytes (%) (Auto) 31 % (24-48) Monocytes (%) (Auto) 6 % (0-9) Eosinophils (%) (Auto) 2 % (0-3) Basophils (%) (Auto) 0 % (0-3) Neutrophils # (Auto) 2.9 x10^3uL (1.8-7.7) Lymphocytes # (Auto) 1.5 x10^3/uL (1.0-4.8) Monocytes # (Auto) 0.3 x10^3/uL (0.0-1.1) Eosinophils # (Auto) 0.1 x10^3/uL (0.0-0.7) Basophils # (Auto) 0.0 x10^3/uL (0.0-0.2) Prothrombin Time 14.0 SEC (11.7-14.0) Prothromb Time International Ratio 1.1 (0.8-1.1) Sodium Level 130 mmol/L (136-145) 134 mmol/L (136-145) Potassium Level 4.3 mmol/L (3.5-5.1) 4.8 mmol/L (3.5-5.1) Chloride Level 95 mmol/L (98-107) 100 mmol/L (98-107) Carbon Dioxide Level 20 mmol/L (21-32) 21 mmol/L (21-32) Anion Gap 15 (6-14) 13 (6-14) Blood Urea Nitrogen 63 mg/dL (7-20) 58 mg/dL (7-20) Creatinine 3.5 mg/dL (0.6-1.0) 2.7 mg/dL (0.6-1.0) Estimated GFR (Cockcroft-Gault) 13.0 17.6 BUN/Creatinine Ratio 18 (6-20) 21 (6-20) Glucose Level 107 mg/dL (70-99) 109 mg/dL (70-99) Calcium Level 9.3 mg/dL (8.5-10.1) 9.3 mg/dL (8.5-10.1) Total Bilirubin 1.0 mg/dL (0.2-1.0) 1.1 mg/dL (0.2-1.0) Aspartate Amino Transf (AST/SGOT) 50 U/L (15-37) 46 U/L (15-37) Alanine Aminotransferase (ALT/SGPT) 64 U/L (14-59) 55 U/L (14-59) Alkaline Phosphatase 209 U/L (46-116) 191 U/L (46-116) Total Protein 8.3 g/dL (6.4-8.2) 7.7 g/dL (6.4-8.2) Albumin 3.6 g/dL (3.4-5.0) 3.3 g/dL (3.4-5.0) Albumin/Globulin Ratio 0.8 (1.0-1.7) 0.8 (1.0-1.7) Glucose (Fingerstick) 101 mg/dL (70-99) Urine Collection Type U cath Urine Color Yellow Urine Clarity Clear Urine pH 5.0 Urine Specific [place] 1.015 Urine Protein Negative mg/dL (NEG-TRACE) Urine Glucose (UA) Negative mg/dL (NEG) Urine Ketones (Stick) Negative mg/dL (NEG) Urine Blood Negative (NEG) Urine Nitrite Negative (NEG) Urine Bilirubin Negative (NEG) Urine Urobilinogen Dipstick 1.0 mg/dL (0.2 mg/dL) Urine Leukocyte Esterase Moderate (NEG) Urine RBC 0 /HPF (0-2) Urine WBC 5-10 /HPF (0-4) Urine Squamous Epithelial Cells Few /LPF Urine Amorphous Sediment Present /HPF Urine Bacteria Few /HPF (0-FEW) Urine Hyaline Casts Few /HPF Urine Mucus Mod /LPF Test 07/18/18 07:58 Glucose (Fingerstick) 117 mg/dL (70-99) Laboratory Tests Test 07/17/18 21:40 07/17/18 21:46 07/18/18 00:50 07/18/18 04:15 White Blood Count 4.8 x10^3/uL (4.0-11.0) Red Blood Count 3.29 x10^6/uL (3.50-5.40) Hemoglobin 10.3 g/dL (12.0-15.5) Hematocrit 30.7 % (36.0-47.0) Mean Corpuscular Volume 93 fL (79-100) Mean Corpuscular Hemoglobin 31 pg (25-35) Mean Corpuscular Hemoglobin Concent 34 g/dL (31-37) Red Cell Distribution Width 13.1 % (11.5-14.5) Platelet Count 148 x10^3/uL (140-400) Neutrophils (%) (Auto) 61 % (31-73) Lymphocytes (%) (Auto) 31 % (24-48) Monocytes (%) (Auto) 6 % (0-9) Eosinophils (%) (Auto) 2 % (0-3) Basophils (%) (Auto) 0 % (0-3) Neutrophils # (Auto) 2.9 x10^3uL (1.8-7.7) Lymphocytes # (Auto) 1.5 x10^3/uL (1.0-4.8) Monocytes # (Auto) 0.3 x10^3/uL (0.0-1.1) Eosinophils # (Auto) 0.1 x10^3/uL (0.0-0.7) Basophils # (Auto) 0.0 x10^3/uL (0.0-0.2) Prothrombin Time 14.0 SEC (11.7-14.0) Prothromb Time International Ratio 1.1 (0.8-1.1) Sodium Level 130 mmol/L (136-145) 134 mmol/L (136-145) Potassium Level 4.3 mmol/L (3.5-5.1) 4.8 mmol/L (3.5-5.1) Chloride Level 95 mmol/L (98-107) 100 mmol/L (98-107) Carbon Dioxide Level 20 mmol/L (21-32) 21 mmol/L (21-32) Anion Gap 15 (6-14) 13 (6-14) Blood Urea Nitrogen 63 mg/dL (7-20) 58 mg/dL (7-20) Creatinine 3.5 mg/dL (0.6-1.0) 2.7 mg/dL (0.6-1.0) Estimated GFR (Cockcroft-Gault) 13.0 17.6 BUN/Creatinine Ratio 18 (6-20) 21 (6-20) Glucose Level 107 mg/dL (70-99) 109 mg/dL (70-99) Calcium Level 9.3 mg/dL (8.5-10.1) 9.3 mg/dL (8.5-10.1) Total Bilirubin 1.0 mg/dL (0.2-1.0) 1.1 mg/dL (0.2-1.0) Aspartate Amino Transf (AST/SGOT) 50 U/L (15-37) 46 U/L (15-37) Alanine Aminotransferase (ALT/SGPT) 64 U/L (14-59) 55 U/L (14-59) Alkaline Phosphatase 209 U/L (46-116) 191 U/L (46-116) Total Protein 8.3 g/dL (6.4-8.2) 7.7 g/dL (6.4-8.2) Albumin 3.6 g/dL (3.4-5.0) 3.3 g/dL (3.4-5.0) Albumin/Globulin Ratio 0.8 (1.0-1.7) 0.8 (1.0-1.7) Glucose (Fingerstick) 101 mg/dL (70-99) Urine Collection Type U cath Urine Color Yellow Urine Clarity Clear Urine pH 5.0 Urine Specific [place] 1.015 Urine Protein Negative mg/dL (NEG-TRACE) Urine Glucose (UA) Negative mg/dL (NEG) Urine Ketones (Stick) Negative mg/dL (NEG) Urine Blood Negative (NEG) Urine Nitrite Negative (NEG) Urine Bilirubin Negative (NEG) Urine Urobilinogen Dipstick 1.0 mg/dL (0.2 mg/dL) Urine Leukocyte Esterase Moderate (NEG) Urine RBC 0 /HPF (0-2) Urine WBC 5-10 /HPF (0-4) Urine Squamous Epithelial Cells Few /LPF Urine Amorphous Sediment Present /HPF Urine Bacteria Few /HPF (0-FEW) Urine Hyaline Casts Few /HPF Urine Mucus Mod /LPF Test 07/18/18 07:58 Glucose (Fingerstick) 117 mg/dL (70-99) Review All relevant outside records, renal labs, imaging studies, telemetry/EKG's were reviewed. BREA PERES MD Jul 18, 2018 12:28
--- NOTE | 2018-07-18 12:41 | PDOC2 ---
NEUROLOGY CONSULT Date of Admission Date of Admission DATE: 07/18/18 TIME: 12:36 Reason for Consult Reason for Consult: Rule out new stroke Referring Physician Referring Physician: Dr. Man Source Source: Chart review, Patient History of Present Illness History of Present Illness The patient is a 68-year-old right-handed female who came to the emergency department yesterday approximately 3 hours after developing right arm weakness. She was here on with altered mental status. MRI of the brain showed large acute infarction of the left temporal and left pride alone. She was documented to have right-sided weakness at that time. I discussed the case with Dr. Hansen, the patient was outside the three-hour window, we were not sure if there were indeed any acute abnormalities to give alteplace for, and therefore elected not to give this medication. The patient is aphasic and not able to give me an accurate history. She does tell me that her arm weakness is unchanged. She denies any pain. Work up last time included carotid Doppler studies, the brain MRI showing the stroke, and echocardiogram. I fully reviewed the last hospital stay. Past Medical History Cardiovascular: HTN CENTRAL NERVOUS SYSTEM: CVA Psych: Anxiety Renal/: Chronic renal insuff Endocrine: Diabetes, Hypothyroidism Past Surgical History Past Surgical History: Appendectomy, Cholecystectomy Family History Family History: No pertinent hx Social History Social History , no alcohol or tobacco Current Medications Current Medications Current Medications Sodium Chloride 1,000 ml @ 1,000 mls/hr 1X ONCE IV ; Start 07/17/18 at 23:33; Stop 07/18/18 at 00:32; Status DC Sodium Chloride 1,000 ml @ 100 mls/hr Q10H IV Last administered on 07/18/18at 02:11; Start 07/18/18 at 00:00; Stop 07/18/18 at 00:01; Status DC Ceftriaxone Sodium (Rocephin) 1 gm 1X ONCE IVP Last administered on 07/18/18at 05:26; Start 07/18/18 at 04:30; Stop 07/18/18 at 04:31; Status DC Acetaminophen (Tylenol) 650 mg PRN Q6HRS PRN PO TEMP > 100.4F; Start 07/18/18 at 08:45 Acetaminophen (Tylenol Supp) 650 mg PRN Q4HRS PRN VA TEMP > 100.4F; Start 07/18 at 08:45 Aspirin (Ecotrin) 325 mg DAILYWBKFT PO Last administered on 07/18/18at 12:17; Start 07/18/18 at 09:30 Sodium Chloride 1,000 ml @ 100 mls/hr 1X ONCE IV Last administered on at 12:17; Start 07/18/18 at 09:45; Stop 07/18/18 at 19:44 Amlodipine Besylate (Norvasc) 10 mg DAILY PO ; Start 07/18/18 at 11:00 Cetirizine HCl (ZyrTEC) 10 mg PRN DAILY PRN PO ALLERGIES; Start 07/18/18 at 10: 15 Clonidine HCl (Catapres Tts-2) 1 patch WEEKLY TD ; Start 07/18/18 at 11:00 Glipizide (Glucotrol) 5 mg DAILY PO Last administered on 07/18/18at 12:17; Start 07/18/18 at 11:00 Acetaminophen/ Hydrocodone Bitart (Lortab 5/325) 1 tab PRN Q6HRS PRN PO PAIN; Start 07/18/18 at 10:15 Levothyroxine Sodium (Synthroid) 100 mcg DAILY07 PO Last administered on at 12:17; Start 07/18/18 at 11:00 Lisinopril (Prinivil) 40 mg DAILY PO ; Start 07/18/18 at 11:00 Lorazepam (Ativan) 1 mg TID PRN PRN PO ANXIETY / AGITATION; Start 07/18/18 at 10:15 Simvastatin (Zocor) 5 mg HS PO ; Start 07/18/18 at 21:00 Hydralazine HCl (Apresoline) 25 mg PRN TID PRN PO HYPERTENSION; Start 07/18/18 at 14:00 Hydrochlorothiazide (Microzide) 12.5 mg DAILY PO ; Start 07/18/18 at 11:00 Non-Formulary Medication (Metformin Hcl ) 1 tab DAILY PO ; Start 07/19/18 at 09: 00; Status UNV Pantoprazole Sodium (Protonix) 40 mg DAILYAC PO Last administered on 07/18/18at 12:17; Start 07/18/18 at 11:00 Active Scripts Active Reported Lisinopril 40 Mg Tablet 1 Tab PO DAILY Amlodipine Besylate 10 Mg Tablet 1 Tab PO DAILY Simvastatin 5 Mg Tablet 1 Tab PO HS Metformin Hcl 500 Mg Tablet 1 Tab PO DAILY Glipizide 5 Mg Tablet 1 Tab PO DAILY Clonidine Tts-2 (Clonidine) 1 Each Patch.tdwk 1 Patch TD Q3DAYS Hydralazine Hcl 25 Mg Tablet 1 Tab PO Q8HRS PRN Zyrtec (Cetirizine Hcl) 10 Mg Tablet 10 Mg PO DAILY PRN Prilosec Otc (Omeprazole Magnesium) 20 Mg Tablet.dr 20 Mg PO DAILY Hydrochlorothiazide Tablet (Hydrochlorothiazide) 12.5 Mg Tablet 12.5 Mg PO DAILY Lorazepam 1 Mg Tablet 1 Tab PO TID PRN PRN [place] 5-325 Tablet (Acetaminophen/Hydrocodone Bitart) 1 Each Tablet 1-2 Tab PO PRN Q4-6HRS PRN Glipizide-Metformin 2.5-500 Mg (Glipizide/Metformin Hcl) 1 Each Tablet 1 Each PO DAILYWSUP Glipizide-Metformin 2.5-500 Mg (Glipizide/Metformin Hcl) 1 Each Tablet 2 Each PO DAILY Atenolol 100 Mg Tablet 1 Tab PO DAILY Levothyroxine Sodium 100 Mcg Tablet 1 Tab PO DAILY Metformin Hcl Er (Metformin Hcl) 500 Mg Tab.er.24h 500 Mg PO DAILYWBKFT Lisinopril 40 Mg Tablet 1 Tab PO DAILY Allergies Allergies: Coded Allergies: Influenza Virus Vaccines (Verified Allergy, Intermediate, Hives, 07/17/18) erythromycin base (Verified Allergy, Intermediate, 07/17/18) metoprolol (Verified Allergy, Intermediate, 07/17/18) atorvastatin (Verified Allergy, Mild, Diarrhea, 07/17/18) ROS Review of System Negative for fever, chills, weight loss, shortness of breath, chest pain, indigestion, hematochezia, melena, and dysuria. Full 14-point review of systems is negative. Physical Exam Physical Examination General: Well-developed, well-nourished white female in no acute distress HEENT: Normocephalic andatraumatic. Temporal arteriespulsatile and nontender. Neck: Supple without bruit, no meningismus Musculoskeletal: Stability:see neurologic. Gait exam:see neurologic. Tone:see neurologic. Strength:see neurologic. Neurological: Mental Status:orientation, memory, attention span/concentration, language, fund of knowledge: she has expressive and receptive aphasia, unable to further assess mental status. Cranial Nerves:Pupils equal and reactive to light, extraocular movements areintact, visual barrera are full to confrontation. Facial sensation is normal. There is no facial asymmetry. Vestibulo-ocular reflex is intact. Palate elevates and tongue protrudes in midline. All other cranial related problems are negative except as mentioned before.Reflexes:2+ and symmetric with flexor plantar responses. Motor:4/5 strength, weaker on right, with normal tone and bulk. Coordination: not cooperative. Gait: Not tested. Sensory: as best I can determine, intact, but patient not cooperative due to aphasia. Vitals VITALS Vital Signs Date Time Temp Pulse Resp B/P (MAP) Pulse Ox O2 Delivery O2 Flow Rate FiO2 07/18/18 11:00 50 99/47 07/18/18 10:40 98.1 16 99 Room Air 98.1 Labs Labs Laboratory Tests Test 07/17/18 21:40 07/17/18 21:46 07/18/18 00:50 07/18/18 04:15 White Blood Count 4.8 x10^3/uL (4.0-11.0) Red Blood Count 3.29 x10^6/uL (3.50-5.40) Hemoglobin 10.3 g/dL (12.0-15.5) Hematocrit 30.7 % (36.0-47.0) Mean Corpuscular Volume 93 fL (79-100) Mean Corpuscular Hemoglobin 31 pg (25-35) Mean Corpuscular Hemoglobin Concent 34 g/dL (31-37) Red Cell Distribution Width 13.1 % (11.5-14.5) Platelet Count 148 x10^3/uL (140-400) Neutrophils (%) (Auto) 61 % (31-73) Lymphocytes (%) (Auto) 31 % (24-48) Monocytes (%) (Auto) 6 % (0-9) Eosinophils (%) (Auto) 2 % (0-3) Basophils (%) (Auto) 0 % (0-3) Neutrophils # (Auto) 2.9 x10^3uL (1.8-7.7) Lymphocytes # (Auto) 1.5 x10^3/uL (1.0-4.8) Monocytes # (Auto) 0.3 x10^3/uL (0.0-1.1) Eosinophils # (Auto) 0.1 x10^3/uL (0.0-0.7) Basophils # (Auto) 0.0 x10^3/uL (0.0-0.2) Prothrombin Time 14.0 SEC (11.7-14.0) Prothromb Time International Ratio 1.1 (0.8-1.1) Sodium Level 130 mmol/L (136-145) 134 mmol/L (136-145) Potassium Level 4.3 mmol/L (3.5-5.1) 4.8 mmol/L (3.5-5.1) Chloride Level 95 mmol/L (98-107) 100 mmol/L (98-107) Carbon Dioxide Level 20 mmol/L (21-32) 21 mmol/L (21-32) Anion Gap 15 (6-14) 13 (6-14) Blood Urea Nitrogen 63 mg/dL (7-20) 58 mg/dL (7-20) Creatinine 3.5 mg/dL (0.6-1.0) 2.7 mg/dL (0.6-1.0) Estimated GFR (Cockcroft-Gault) 13.0 17.6 BUN/Creatinine Ratio 18 (6-20) 21 (6-20) Glucose Level 107 mg/dL (70-99) 109 mg/dL (70-99) Calcium Level 9.3 mg/dL (8.5-10.1) 9.3 mg/dL (8.5-10.1) Total Bilirubin 1.0 mg/dL (0.2-1.0) 1.1 mg/dL (0.2-1.0) Aspartate Amino Transf (AST/SGOT) 50 U/L (15-37) 46 U/L (15-37) Alanine Aminotransferase (ALT/SGPT) 64 U/L (14-59) 55 U/L (14-59) Alkaline Phosphatase 209 U/L (46-116) 191 U/L (46-116) Total Protein 8.3 g/dL (6.4-8.2) 7.7 g/dL (6.4-8.2) Albumin 3.6 g/dL (3.4-5.0) 3.3 g/dL (3.4-5.0) Albumin/Globulin Ratio 0.8 (1.0-1.7) 0.8 (1.0-1.7) Glucose (Fingerstick) 101 mg/dL (70-99) Urine Collection Type U cath Urine Color Yellow Urine Clarity Clear Urine pH 5.0 Urine Specific [place] 1.015 Urine Protein Negative mg/dL (NEG-TRACE) Urine Glucose (UA) Negative mg/dL (NEG) Urine Ketones (Stick) Negative mg/dL (NEG) Urine Blood Negative (NEG) Urine Nitrite Negative (NEG) Urine Bilirubin Negative (NEG) Urine Urobilinogen Dipstick 1.0 mg/dL (0.2 mg/dL) Urine Leukocyte Esterase Moderate (NEG) Urine RBC 0 /HPF (0-2) Urine WBC 5-10 /HPF (0-4) Urine Squamous Epithelial Cells Few /LPF Urine Amorphous Sediment Present /HPF Urine Bacteria Few /HPF (0-FEW) Urine Hyaline Casts Few /HPF Urine Mucus Mod /LPF Test 07/18/18 07:58 Glucose (Fingerstick) 117 mg/dL (70-99) Laboratory Tests Test 07/17/18 21:40 07/17/18 21:46 07/18/18 00:50 07/18/18 04:15 White Blood Count 4.8 x10^3/uL (4.0-11.0) Red Blood Count 3.29 x10^6/uL (3.50-5.40) Hemoglobin 10.3 g/dL (12.0-15.5) Hematocrit 30.7 % (36.0-47.0) Mean Corpuscular Volume 93 fL (79-100) Mean Corpuscular Hemoglobin 31 pg (25-35) Mean Corpuscular Hemoglobin Concent 34 g/dL (31-37) Red Cell Distribution Width 13.1 % (11.5-14.5) Platelet Count 148 x10^3/uL (140-400) Neutrophils (%) (Auto) 61 % (31-73) Lymphocytes (%) (Auto) 31 % (24-48) Monocytes (%) (Auto) 6 % (0-9) Eosinophils (%) (Auto) 2 % (0-3) Basophils (%) (Auto) 0 % (0-3) Neutrophils # (Auto) 2.9 x10^3uL (1.8-7.7) Lymphocytes # (Auto) 1.5 x10^3/uL (1.0-4.8) Monocytes # (Auto) 0.3 x10^3/uL (0.0-1.1) Eosinophils # (Auto) 0.1 x10^3/uL (0.0-0.7) Basophils # (Auto) 0.0 x10^3/uL (0.0-0.2) Prothrombin Time 14.0 SEC (11.7-14.0) Prothromb Time International Ratio 1.1 (0.8-1.1) Sodium Level 130 mmol/L (136-145) 134 mmol/L (136-145) Potassium Level 4.3 mmol/L (3.5-5.1) 4.8 mmol/L (3.5-5.1) Chloride Level 95 mmol/L (98-107) 100 mmol/L (98-107) Carbon Dioxide Level 20 mmol/L (21-32) 21 mmol/L (21-32) Anion Gap 15 (6-14) 13 (6-14) Blood Urea Nitrogen 63 mg/dL (7-20) 58 mg/dL (7-20) Creatinine 3.5 mg/dL (0.6-1.0) 2.7 mg/dL (0.6-1.0) Estimated GFR (Cockcroft-Gault) 13.0 17.6 BUN/Creatinine Ratio 18 (6-20) 21 (6-20) Glucose Level 107 mg/dL (70-99) 109 mg/dL (70-99) Calcium Level 9.3 mg/dL (8.5-10.1) 9.3 mg/dL (8.5-10.1) Total Bilirubin 1.0 mg/dL (0.2-1.0) 1.1 mg/dL (0.2-1.0) Aspartate Amino Transf (AST/SGOT) 50 U/L (15-37) 46 U/L (15-37) Alanine Aminotransferase (ALT/SGPT) 64 U/L (14-59) 55 U/L (14-59) Alkaline Phosphatase 209 U/L (46-116) 191 U/L (46-116) Total Protein 8.3 g/dL (6.4-8.2) 7.7 g/dL (6.4-8.2) Albumin 3.6 g/dL (3.4-5.0) 3.3 g/dL (3.4-5.0) Albumin/Globulin Ratio 0.8 (1.0-1.7) 0.8 (1.0-1.7) Glucose (Fingerstick) 101 mg/dL (70-99) Urine Collection Type U cath Urine Color Yellow Urine Clarity Clear Urine pH 5.0 Urine Specific [place] 1.015 Urine Protein Negative mg/dL (NEG-TRACE) Urine Glucose (UA) Negative mg/dL (NEG) Urine Ketones (Stick) Negative mg/dL (NEG) Urine Blood Negative (NEG) Urine Nitrite Negative (NEG) Urine Bilirubin Negative (NEG) Urine Urobilinogen Dipstick 1.0 mg/dL (0.2 mg/dL) Urine Leukocyte Esterase Moderate (NEG) Urine RBC 0 /HPF (0-2) Urine WBC 5-10 /HPF (0-4) Urine Squamous Epithelial Cells Few /LPF Urine Amorphous Sediment Present /HPF Urine Bacteria Few /HPF (0-FEW) Urine Hyaline Casts Few /HPF Urine Mucus Mod /LPF Test 07/18/18 07:58 Glucose (Fingerstick) 117 mg/dL (70-99) Images Images CT Head W/O Contrast: History: PREVIOUS STROKE; RIGHT SIDED WEAKNESS Comparison: June 24, 2018 Axial images were obtained without contrast. There has been maturation of the left temporal occipital stroke which is now smaller and shows less edema. There is subtle hyperattenuation suggesting petechial hemorrhage. The remaining howard and white matter appears normal and symmetrical for the patients age. There is no mass effect, extraaxial fluid collections or hydrocephalus. There is no gross bleed. There is no focal loss of howard-white matter distinction to suggest acute ischemia, i.e. stroke. Impression: 1. Expected maturation of previously seen left temporal occipital lobe stroke. 2. Probable petechial hemorrhage. No gross hematoma. Assessment/Plan Assessment/Plan Impression: Prior infarct in the left middle cerebral artery distribution last month, negative workup, I doubt that she is had any stroke even though the CT shows some petechial hemorrhage. A better explanation is metabolic encephalopathy on top of the old stroke, related to legal insufficiency. I find no evidence that she had a seizure or has any central nervous system infection. Recommendations: Brain MRI Continue aspirin Workup of renal problems. Additional workup depending on MRI results. Thank you for letting me help the patient's care. DEMARCO CORRIGAN MD Jul 18, 2018 12:41
--- NOTE | 2018-07-18 12:56 | RAD ---
MRI of the brain without contrast 07/18/2016 Clinical History: Increased right arm weakness. Altered mental status. Stroke in June of this year. Technique: Unenhanced T1-weighted sagittal and axial, T2-weighted axial and coronal and FLAIR, gradient echo and diffusion-weighted axial images of the brain were obtained. Findings: Comparison is made to the patient's CT scan of the head dated 07/17/2018. Additional comparison is made to patient's previous MRI of the brain dated 06/22/2018. Images from the study are degraded by patient motion. There is generalized parenchymal atrophy. Patchy, confluent and multiple focal areas of increased signal intensity are seen within the periventricular and subcortical white matter of both cerebral hemispheres on the FLAIR and T2-weighted images consistent with areas of small vessel ischemic disease. A 9 mm old area of infarction is seen involving the right cerebellar hemisphere. Smaller areas of old infarction are seen involving both cerebellar hemispheres more superiorly, left greater than right. These measure 2 to 4 mm in size. A 4 mm old area of lacunar infarction is seen involving the right thalamus. 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 The edema and mass effect seen on the previous MRI examination has resolved. A wedge-shaped area of restricted diffusion is seen involving the posterior left parietal lobe which measures 4.5 cm in greatest diameter. This is consistent with an acute area of ischemia/infarction. There is surrounding edema without evidence of significant mass effect. No additional acute parenchymal abnormality is seen. No extra-axial fluid collection is noted. There are minimal bilateral mastoid effusions, right greater than left.. Very mild mucosal thickening is seen scattered throughout the paranasal sinuses. 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 IMPRESSION: An area of acute ischemia/infarction is seen involving the left parietal lobe as outlined above. There is surrounding edema without evidence of significant mass effect. The patient's nurse was notified of this finding. Electronically signed by: Eduardo Schilling MD (07/18/2018 12:53 PM) [id number]
--- NOTE | 2018-07-18 13:00 | NUR ---
Pt HR has been running between 40's-50's, while awake and while resting. Notified Dr. Man. Will continue to monitor.
[2018-07-18] MEDS ORDERED: hydrALAZINE 25 MG TABLET PO PRN (14:00)
[2018-07-18 15:00] VITALS: BP 94/41
--- NOTE | 2018-07-18 15:14 | PDOC2 ---
BEATRIZ YOO CONE TRUCKER 07/18/18 1514: CARDIAC CONSULT DATE OF CONSULT Date of Consult DATE: 07/18/18 TIME: 14:50 REASON FOR CONSULT Reason for Consult: afib,flutter, CVA, REFERRING PHYSICIAN Referring Physician: Bang SOURCE Source: Chart review HISTORY OF PRESENT ILLNESS HISTORY OF PRESENT ILLNESS This is a 68 yo female admitted for complains of CVA symptoms. She was her about a month ago and had large left temporal and parietal infarct with aphasia but no notable rhythm issues nor significant abnormalities to her TTE that would indicate cardioembolic source. She was not seen by cardiology at that time. She present again this time with right arm weakness and was not acting right accdg to family, Subjectively unclear with pt as pt has aphasia. Currently she is not in distressed and both has receptive and expressive aphasia. I asked how she is doing and if she is in pain and open ended question and answere "Im ok alright". she is pleasant but unable to comprehend instructions. PAST MEDICAL HISTORY Cardiovascular: HTN, Hyperlipidemia, Other (mild to moderate carotid artery disease) CENTRAL NERVOUS SYSTEM: CVA (recent large left parietal and temporal infarct wih aphasia) GI: No pertinent hx Heme/Onc: No pertinent hx Hepatobiliary: No pertinent hx Psych: No pertinent hx Musculoskeletal: low back pain, Osteoarthritis Rheumatologic: No pertinent hx Infectious disease: No pertinent hx ENT: No pertinent hx Renal/: No pertinent hx Endocrine: Diabetes (2), Hypothyroidism Dermatology: No pertinent hx PAST SURGICAL HISTORY Past Surgical History: No pertinent history FAMILY HISTORY Family History: Diabetes SOCIAL HISTORY Smoke: Quit (7 yrs ago) ALCOHOL: rare Drugs: None Lives: with Family CURRENT MEDICATIONS CURRENT MEDICATIONS Current Medications Medications (Trade) Dose Ordered Sig/Irma Route PRN Reason Start Time Stop Time Status Last Admin Dose Admin Sodium Chloride 1,000 ml @ 100 mls/hr Q10H IV 07/18/18 00:00 07/18/18 00:01 DC 07/18/18 02:11 Ceftriaxone Sodium (Rocephin) 1 gm 1X ONCE IVP 07/18/18 04:30 07/18/18 04:31 DC 07/18/18 05:26 Aspirin (Ecotrin) 325 mg DAILYWBKFT PO 07/18/18 09:30 07/18/18 12:17 Sodium Chloride 1,000 ml @ 100 mls/hr 1X ONCE IV 07/18/18 09:45 07/18/18 19:44 07/18/18 12:17 Glipizide (Glucotrol) 5 mg DAILY PO 07/18/18 11:00 07/18/18 12:17 Levothyroxine Sodium (Synthroid) 100 mcg DAILY07 PO 07/18/18 11:00 07/18/18 12:17 Pantoprazole Sodium (Protonix) 40 mg DAILYAC PO 07/18/18 11:00 07/18/18 12:17 ALLERGIES ALLERGIES: Coded Allergies: Influenza Virus Vaccines (Verified Allergy, Intermediate, Hives, 07/17/18) erythromycin base (Verified Allergy, Intermediate, 07/17/18) metoprolol (Verified Allergy, Intermediate, 07/17/18) atorvastatin (Verified Allergy, Mild, Diarrhea, 07/17/18) ROS Review of System Limited due to aphasia. PHYSICAL EXAM General: Alert, Cooperative, No acute distress HEENT: Atraumatic, Mucous membr. moist/pink Lungs: Clear to auscultation, Normal air movement Heart: Regular rate (SB ), Normal S1, Normal S2, Other (2/6 systolic murmur to LLS border) Abdomen: Soft, No tenderness Extremities: No cyanosis, No edema Skin: No breakdown, No significant lesion Neuro: Sensation intact, Other (aphasia) Psych/Mental Status: Other (pleasant and cooperative) MUSCULOSKELETAL: Osteoarthritic changes both hands VITALS VITALS Vital Signs Date Time Temp Pulse Resp B/P (MAP) Pulse Ox O2 Delivery O2 Flow Rate FiO2 07/18/18 11:00 50 99/47 07/18/18 10:40 98.1 16 99 Room Air 98.1 LABS Lab: Laboratory Tests Test 07/17/18 21:40 07/17/18 21:46 07/18/18 00:50 07/18/18 04:15 White Blood Count 4.8 x10^3/uL (4.0-11.0) Red Blood Count 3.29 x10^6/uL (3.50-5.40) Hemoglobin 10.3 g/dL (12.0-15.5) Hematocrit 30.7 % (36.0-47.0) Mean Corpuscular Volume 93 fL (79-100) Mean Corpuscular Hemoglobin 31 pg (25-35) Mean Corpuscular Hemoglobin Concent 34 g/dL (31-37) Red Cell Distribution Width 13.1 % (11.5-14.5) Platelet Count 148 x10^3/uL (140-400) Neutrophils (%) (Auto) 61 % (31-73) Lymphocytes (%) (Auto) 31 % (24-48) Monocytes (%) (Auto) 6 % (0-9) Eosinophils (%) (Auto) 2 % (0-3) Basophils (%) (Auto) 0 % (0-3) Neutrophils # (Auto) 2.9 x10^3uL (1.8-7.7) Lymphocytes # (Auto) 1.5 x10^3/uL (1.0-4.8) Monocytes # (Auto) 0.3 x10^3/uL (0.0-1.1) Eosinophils # (Auto) 0.1 x10^3/uL (0.0-0.7) Basophils # (Auto) 0.0 x10^3/uL (0.0-0.2) Prothrombin Time 14.0 SEC (11.7-14.0) Prothromb Time International Ratio 1.1 (0.8-1.1) Sodium Level 130 mmol/L (136-145) 134 mmol/L (136-145) Potassium Level 4.3 mmol/L (3.5-5.1) 4.8 mmol/L (3.5-5.1) Chloride Level 95 mmol/L (98-107) 100 mmol/L (98-107) Carbon Dioxide Level 20 mmol/L (21-32) 21 mmol/L (21-32) Anion Gap 15 (6-14) 13 (6-14) Blood Urea Nitrogen 63 mg/dL (7-20) 58 mg/dL (7-20) Creatinine 3.5 mg/dL (0.6-1.0) 2.7 mg/dL (0.6-1.0) Estimated GFR (Cockcroft-Gault) 13.0 17.6 BUN/Creatinine Ratio 18 (6-20) 21 (6-20) Glucose Level 107 mg/dL (70-99) 109 mg/dL (70-99) Calcium Level 9.3 mg/dL (8.5-10.1) 9.3 mg/dL (8.5-10.1) Total Bilirubin 1.0 mg/dL (0.2-1.0) 1.1 mg/dL (0.2-1.0) Aspartate Amino Transf (AST/SGOT) 50 U/L (15-37) 46 U/L (15-37) Alanine Aminotransferase (ALT/SGPT) 64 U/L (14-59) 55 U/L (14-59) Alkaline Phosphatase 209 U/L (46-116) 191 U/L (46-116) Total Protein 8.3 g/dL (6.4-8.2) 7.7 g/dL (6.4-8.2) Albumin 3.6 g/dL (3.4-5.0) 3.3 g/dL (3.4-5.0) Albumin/Globulin Ratio 0.8 (1.0-1.7) 0.8 (1.0-1.7) Glucose (Fingerstick) 101 mg/dL (70-99) Urine Collection Type U cath Urine Color Yellow Urine Clarity Clear Urine pH 5.0 Urine Specific [place] 1.015 Urine Protein Negative mg/dL (NEG-TRACE) Urine Glucose (UA) Negative mg/dL (NEG) Urine Ketones (Stick) Negative mg/dL (NEG) Urine Blood Negative (NEG) Urine Nitrite Negative (NEG) Urine Bilirubin Negative (NEG) Urine Urobilinogen Dipstick 1.0 mg/dL (0.2 mg/dL) Urine Leukocyte Esterase Moderate (NEG) Urine RBC 0 /HPF (0-2) Urine WBC 5-10 /HPF (0-4) Urine Squamous Epithelial Cells Few /LPF Urine Amorphous Sediment Present /HPF Urine Bacteria Few /HPF (0-FEW) Urine Hyaline Casts Few /HPF Urine Mucus Mod /LPF Test 07/18/18 07:58 Glucose (Fingerstick) 117 mg/dL (70-99) ECHOCARDIOGRAM ECHOCARDIOGRAM <Conclusion> The left ventricle is normal size. The left ventricular systolic function is normal and the ejection fraction is within normal range. The Ejection Fraction is 55-60%. The interatrial septum is intact with no evidence for an atrial septal defect or patent foramen ovale as noted on 2-D or Doppler imaging. Injection of bubbles documented no interatrial shunt. There is no significant aortic valvular stenosis. Doppler and Color Flow revealed mild aortic regurgitation. Doppler and Color-flow revealed trace to mild mitral regurgitation. Doppler and Color Flow revealed no tricuspid valve regurgitation noted. DATE: 06/22/18 1549 ASSESSMENT/PLAN ASSESSMENT/PLAN 1. Acute CVA: with recent left parietal and temporal with no recurrent parietal CVA with some edema per MRI 2. Severe TIFFANIE: nephrology following 3. HTN: currently hypotensive. 4. DM2/HLP 5. Asymptomatic SB. lowest mid 40s. Unclear if she has been completely off atenolol but has been off clonidine. This could be vagal induced r/t CVA and metabolic issues. 6. Mild to moderate carotid artery disease. 7. Positive for orthostasis. 8. Aphasia Recommendations 1. Consider for LINQ. No AFIB/flutter evidence so far, recent TTE with normal EF and no evidence of intraatrial shunting. 2. Avoid AV jolie blocking agents, Hold BP meds for now. ASA and statin. Monitor rhythm. 3. IVF per nephrology. Start mechanical compression. Supportive care. . BRIAN GLIL MD 07/18/18 1830: CARDIAC CONSULT ASSESSMENT/PLAN ASSESSMENT/PLAN Pt. seen and examined. Agree with above [employer] TECHNICIAN note. 68 y.o with known CVA Mild bradycardia. No acute indication for pacer. Unable to correlate any symptoms to bradycardia. prior echo wnl. Supportive care. Plan for implantable loop recorder as an outpt. BEATRIZ Bernal APRN Jul 18, 2018 15:14 BRIAN GILL MD Jul 18, 2018 18:30
--- NOTE | 2018-07-18 15:28 | NUR ---
SW consulted for dc needs. Chart reviewed. Pt lives at home alone was discharged to SNU last month. PT/OT pending. SW will await for PT/OT evaluation to assess needs. Will continue to follow.
[2018-07-18 19:50] VITALS: BP 135/78
[2018-07-18] MEDS: SIMVASTATIN 5 MG TABLET. PO SCH (20:44)
[2018-07-18 23:30] VITALS: BP 121/53
[2018-07-19 03:16] VITALS: BP 149/83
[2018-07-19 05:39] LABS: CALCIUM 9.3 mg/dL (8.5-10.1); CREATININE 1.8 mg/dL (0.6-1.0); GFR 28.1; POTASSIUM 4.5 mmol/L (3.5-5.1)
[2018-07-19 05:48] LABS: CHOLESTEROL/HDL RATIO 3.3
[2018-07-19] MEDS: LEVOTHYROXINE 100 MCG TABLET PO SCH (06:07)
[2018-07-19 07:00] VITALS: BP 124/65
--- NOTE | 2018-07-19 07:06 | PDOC ---
PROGRESS NOTES Chief Complaint Chief Complaint A/P: Aphasia - based on CT head has a large left parietal and temporal CVA with receptive and expressive aphasia, seems to be feeling her right hand as though there is sensation loss. Does not follow commands at all. ASA, statin, Neurology consultation. MRI to confirm evolution and worsening infarct. PT/OT/ INFORMATION RESOURCE CONSULTANT Hypokalemia - will replace, check mag Bilirubin elevated - will start bowel regimen HTN - restart home meds, add amlodipine DM2 - cont oral meds, add sliding scale Hypothyroidism - cont levothyroxine Bradycardia - this looks like slow afib or flutter, will have cardiology to evaluate as this is her second episode of CVA in a short time Hypotension - orthostatics positive - IVF resuscitation FEN - NPO pending INFORMATION RESOURCE CONSULTANT evaluation PPX - Lovenox FULL CODE Inpatient for acute CVA, will need rehab services on d/c, inpatient likely 2 midnights History of Present Illness History of Present Illness 68 year old female w/ PMHx HTN, DM2, hypothyroidism, 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 Discharge summary does note a 4 out of 5 strength on the right upper extremity however. Apparently she got into the bathtub okay a little bit before 6:30 and then was having trouble getting out by herself they were worried she was having another stroke so they brought her to the ER. Otherwise she has been well recently they say she is eating and drinking okay denies any other pain but the history is limited by the patient's aphasia. CT revealed wedge shaped hypodensity in left MCA territory parietal and temporal lobes. MRI shows new parietal infarct and old cerebellar infarcts as well as prior infarct. She was apparently upset last night. BP improved a bit with IVF. Cr came down to 1.8. No complaints that make any sense. Seen by cardiology last night for my concern of possible atrial arrhythmia, was reassured there is no arrhythmia. Plan: Cont IVF D/C luu Ambulate Monitor BP Rehab modalities, needs skilled services on d/c. She needs physical redirection to achieve tasks with her aphasia Vitals Vitals Vital Signs Date Time Temp Pulse Resp B/P (MAP) Pulse Ox O2 Delivery O2 Flow Rate FiO2 07/19/18 03:16 98.1 60 20 149/83 (105) 100 Room Air 98.1 Physical Exam General: Alert, No acute distress Heart: Regular rate (SB ), Normal S1, Normal S2, Other (2/6 systolic murmur to LLS border) Lungs: Clear Abdomen: Normal bowel sounds, Soft, No tenderness, No hepatosplenomegaly, No masses Extremities: No clubbing, No cyanosis, No edema, Normal pulses, No tenderness/ swelling Skin: No rashes, No breakdown, No significant lesion Labs LABS Laboratory Tests Test 07/18/18 07:58 07/18/18 21:04 07/19/18 04:50 Glucose (Fingerstick) 117 mg/dL (70-99) 168 mg/dL (70-99) Sodium Level 138 mmol/L (136-145) Potassium Level 4.5 mmol/L (3.5-5.1) Chloride Level 105 mmol/L (98-107) Carbon Dioxide Level 21 mmol/L (21-32) Anion Gap 12 (6-14) Blood Urea Nitrogen 40 mg/dL (7-20) Creatinine 1.8 mg/dL (0.6-1.0) Estimated GFR (Cockcroft-Gault) 28.1 Glucose Level 112 mg/dL (70-99) Calcium Level 9.3 mg/dL (8.5-10.1) Triglycerides Level 107 mg/dL (0-150) Cholesterol Level 105 mg/dL (0-200) LDL Cholesterol, Calculated 52 mg/dL (0-100) VLDL Cholesterol, Calculated 21 mg/dL (0-40) Non-HDL Cholesterol Calculated 73 mg/dL (0-129) HDL Cholesterol 32 mg/dL (40-60) Cholesterol/HDL Ratio 3.3 Comment Review of Relevant I have reviewed the following items samantha (where applicable) has been applied. Labs Laboratory Tests Test 07/17/18 21:40 07/17/18 21:46 07/18/18 00:50 07/18/18 04:15 White Blood Count 4.8 x10^3/uL (4.0-11.0) Red Blood Count 3.29 x10^6/uL (3.50-5.40) Hemoglobin 10.3 g/dL (12.0-15.5) Hematocrit 30.7 % (36.0-47.0) Mean Corpuscular Volume 93 fL (79-100) Mean Corpuscular Hemoglobin 31 pg (25-35) Mean Corpuscular Hemoglobin Concent 34 g/dL (31-37) Red Cell Distribution Width 13.1 % (11.5-14.5) Platelet Count 148 x10^3/uL (140-400) Neutrophils (%) (Auto) 61 % (31-73) Lymphocytes (%) (Auto) 31 % (24-48) Monocytes (%) (Auto) 6 % (0-9) Eosinophils (%) (Auto) 2 % (0-3) Basophils (%) (Auto) 0 % (0-3) Neutrophils # (Auto) 2.9 x10^3uL (1.8-7.7) Lymphocytes # (Auto) 1.5 x10^3/uL (1.0-4.8) Monocytes # (Auto) 0.3 x10^3/uL (0.0-1.1) Eosinophils # (Auto) 0.1 x10^3/uL (0.0-0.7) Basophils # (Auto) 0.0 x10^3/uL (0.0-0.2) Prothrombin Time 14.0 SEC (11.7-14.0) Prothromb Time International Ratio 1.1 (0.8-1.1) Sodium Level 130 mmol/L (136-145) 134 mmol/L (136-145) Potassium Level 4.3 mmol/L (3.5-5.1) 4.8 mmol/L (3.5-5.1) Chloride Level 95 mmol/L (98-107) 100 mmol/L (98-107) Carbon Dioxide Level 20 mmol/L (21-32) 21 mmol/L (21-32) Anion Gap 15 (6-14) 13 (6-14) Blood Urea Nitrogen 63 mg/dL (7-20) 58 mg/dL (7-20) Creatinine 3.5 mg/dL (0.6-1.0) 2.7 mg/dL (0.6-1.0) Estimated GFR (Cockcroft-Gault) 13.0 17.6 BUN/Creatinine Ratio 18 (6-20) 21 (6-20) Glucose Level 107 mg/dL (70-99) 109 mg/dL (70-99) Calcium Level 9.3 mg/dL (8.5-10.1) 9.3 mg/dL (8.5-10.1) Total Bilirubin 1.0 mg/dL (0.2-1.0) 1.1 mg/dL (0.2-1.0) Aspartate Amino Transf (AST/SGOT) 50 U/L (15-37) 46 U/L (15-37) Alanine Aminotransferase (ALT/SGPT) 64 U/L (14-59) 55 U/L (14-59) Alkaline Phosphatase 209 U/L (46-116) 191 U/L (46-116) Total Protein 8.3 g/dL (6.4-8.2) 7.7 g/dL (6.4-8.2) Albumin 3.6 g/dL (3.4-5.0) 3.3 g/dL (3.4-5.0) Albumin/Globulin Ratio 0.8 (1.0-1.7) 0.8 (1.0-1.7) Glucose (Fingerstick) 101 mg/dL (70-99) Urine Collection Type U cath Urine Color Yellow Urine Clarity Clear Urine pH 5.0 Urine Specific [place] 1.015 Urine Protein Negative mg/dL (NEG-TRACE) Urine Glucose (UA) Negative mg/dL (NEG) Urine Ketones (Stick) Negative mg/dL (NEG) Urine Blood Negative (NEG) Urine Nitrite Negative (NEG) Urine Bilirubin Negative (NEG) Urine Urobilinogen Dipstick 1.0 mg/dL (0.2 mg/dL) Urine Leukocyte Esterase Moderate (NEG) Urine RBC 0 /HPF (0-2) Urine WBC 5-10 /HPF (0-4) Urine Squamous Epithelial Cells Few /LPF Urine Amorphous Sediment Present /HPF Urine Bacteria Few /HPF (0-FEW) Urine Hyaline Casts Few /HPF Urine Mucus Mod /LPF Test 07/18/18 07:58 07/18/18 21:04 07/19/18 04:50 Glucose (Fingerstick) 117 mg/dL (70-99) 168 mg/dL (70-99) Sodium Level 138 mmol/L (136-145) Potassium Level 4.5 mmol/L (3.5-5.1) Chloride Level 105 mmol/L (98-107) Carbon Dioxide Level 21 mmol/L (21-32) Anion Gap 12 (6-14) Blood Urea Nitrogen 40 mg/dL (7-20) Creatinine 1.8 mg/dL (0.6-1.0) Estimated GFR (Cockcroft-Gault) 28.1 Glucose Level 112 mg/dL (70-99) Calcium Level 9.3 mg/dL (8.5-10.1) Triglycerides Level 107 mg/dL (0-150) Cholesterol Level 105 mg/dL (0-200) LDL Cholesterol, Calculated 52 mg/dL (0-100) VLDL Cholesterol, Calculated 21 mg/dL (0-40) Non-HDL Cholesterol Calculated 73 mg/dL (0-129) HDL Cholesterol 32 mg/dL (40-60) Cholesterol/HDL Ratio 3.3 Laboratory Tests Test 07/18/18 07:58 07/18/18 21:04 07/19/18 04:50 Glucose (Fingerstick) 117 mg/dL (70-99) 168 mg/dL (70-99) Sodium Level 138 mmol/L (136-145) Potassium Level 4.5 mmol/L (3.5-5.1) Chloride Level 105 mmol/L (98-107) Carbon Dioxide Level 21 mmol/L (21-32) Anion Gap 12 (6-14) Blood Urea Nitrogen 40 mg/dL (7-20) Creatinine 1.8 mg/dL (0.6-1.0) Estimated GFR (Cockcroft-Gault) 28.1 Glucose Level 112 mg/dL (70-99) Calcium Level 9.3 mg/dL (8.5-10.1) Triglycerides Level 107 mg/dL (0-150) Cholesterol Level 105 mg/dL (0-200) LDL Cholesterol, Calculated 52 mg/dL (0-100) VLDL Cholesterol, Calculated 21 mg/dL (0-40) Non-HDL Cholesterol Calculated 73 mg/dL (0-129) HDL Cholesterol 32 mg/dL (40-60) Cholesterol/HDL Ratio 3.3 Medications Current Medications Sodium Chloride 1,000 ml @ 1,000 mls/hr 1X ONCE IV ; Start 07/17/18 at 23:33; Stop 07/18/18 at 00:32; Status DC Sodium Chloride 1,000 ml @ 100 mls/hr Q10H IV Last administered on 07/18/18at 02:11; Start 07/18/18 at 00:00; Stop 07/18/18 at 00:01; Status DC Ceftriaxone Sodium (Rocephin) 1 gm 1X ONCE IVP Last administered on 07/18/18at 05:26; Start 07/18/18 at 04:30; Stop 07/18/18 at 04:31; Status DC Acetaminophen (Tylenol) 650 mg PRN Q6HRS PRN PO TEMP > 100.4F; Start 07/18/18 at 08:45 Acetaminophen (Tylenol Supp) 650 mg PRN Q4HRS PRN DE TEMP > 100.4F; Start 07/18 at 08:45 Aspirin (Ecotrin) 325 mg DAILYWBKFT PO Last administered on 07/18/18at 12:17; Start 07/18/18 at 09:30 Sodium Chloride 1,000 ml @ 100 mls/hr 1X ONCE IV Last administered on at 12:17; Start 07/18/18 at 09:45; Stop 07/18/18 at 19:44; Status DC Amlodipine Besylate (Norvasc) 10 mg DAILY PO ; Start 07/18/18 at 11:00; Stop at 15:15; Status DC Cetirizine HCl (ZyrTEC) 10 mg PRN DAILY PRN PO ALLERGIES; Start 07/18/18 at 10: 15 Clonidine HCl (Catapres Tts-2) 1 patch WEEKLY TD ; Start 07/18/18 at 11:00; Stop 07/18/18 at 13:19; Status DC Glipizide (Glucotrol) 5 mg DAILY PO Last administered on 07/18/18at 12:17; Start 07/18/18 at 11:00 Acetaminophen/ Hydrocodone Bitart (Lortab 5/325) 1 tab PRN Q6HRS PRN PO PAIN; Start 07/18/18 at 10:15 Levothyroxine Sodium (Synthroid) 100 mcg DAILY07 PO Last administered on at 06:07; Start 07/18/18 at 11:00 Lisinopril (Prinivil) 40 mg DAILY PO ; Start 07/18/18 at 11:00 Lorazepam (Ativan) 1 mg TID PRN PRN PO ANXIETY / AGITATION; Start 07/18/18 at 10:15 Simvastatin (Zocor) 5 mg HS PO Last administered on 07/18/18at 20:44; Start at 21:00 Hydralazine HCl (Apresoline) 25 mg PRN TID PRN PO HYPERTENSION; Start 07/18/18 at 14:00 Hydrochlorothiazide (Microzide) 12.5 mg DAILY PO ; Start 07/18/18 at 11:00; Stop 07/18/18 at 15:15; Status DC Non-Formulary Medication (Metformin Hcl ) 1 tab DAILY PO ; Start 07/19/18 at 09: 00; Status UNV Pantoprazole Sodium (Protonix) 40 mg DAILYAC PO Last administered on 07/18/18at 12:17; Start 07/18/18 at 11:00 Active Scripts Active Reported Lisinopril 40 Mg Tablet 1 Tab PO DAILY Amlodipine Besylate 10 Mg Tablet 1 Tab PO DAILY Simvastatin 5 Mg Tablet 1 Tab PO HS Metformin Hcl 500 Mg Tablet 1 Tab PO DAILY Glipizide 5 Mg Tablet 1 Tab PO DAILY Clonidine Tts-2 (Clonidine) 1 Each Patch.tdwk 1 Patch TD Q3DAYS Hydralazine Hcl 25 Mg Tablet 1 Tab PO Q8HRS PRN Zyrtec (Cetirizine Hcl) 10 Mg Tablet 10 Mg PO DAILY PRN Prilosec Otc (Omeprazole Magnesium) 20 Mg Tablet.dr 20 Mg PO DAILY Hydrochlorothiazide Tablet (Hydrochlorothiazide) 12.5 Mg Tablet 12.5 Mg PO DAILY Lorazepam 1 Mg Tablet 1 Tab PO TID PRN PRN [place] 5-325 Tablet (Acetaminophen/Hydrocodone Bitart) 1 Each Tablet 1-2 Tab PO PRN Q4-6HRS PRN Glipizide-Metformin 2.5-500 Mg (Glipizide/Metformin Hcl) 1 Each Tablet 1 Each PO DAILYWSUP Glipizide-Metformin 2.5-500 Mg (Glipizide/Metformin Hcl) 1 Each Tablet 2 Each PO DAILY Atenolol 100 Mg Tablet 1 Tab PO DAILY Levothyroxine Sodium 100 Mcg Tablet 1 Tab PO DAILY Metformin Hcl Er (Metformin Hcl) 500 Mg Tab.er.24h 500 Mg PO DAILYWBKFT Lisinopril 40 Mg Tablet 1 Tab PO DAILY Vitals/I & O Vital Sign - Last 24 Hours 07/18/18 07/18/18 07/18/18 07/18/18 08:00 10:40 11:00 11:00 Temp 98.1 98.1 Pulse 50 50 50 Resp 16 B/P (MAP) 99/47 (64) 99/47 99/47 Pulse Ox 99 O2 Delivery Room Air Room Air 07/18/18 07/18/18 07/18/18 07/18/18 15:00 19:50 20:00 23:30 Temp 98.2 97.7 97.3 98.2 97.7 97.3 Pulse 46 51 52 Resp 18 20 20 B/P (MAP) 94/41 (58) 135/78 (97) 121/53 (75) Pulse Ox 100 100 100 O2 Delivery Room Air Room Air Room Air Room Air 07/19/18 03:16 Temp 98.1 98.1 Pulse 60 Resp 20 B/P (MAP) 149/83 (105) Pulse Ox 100 O2 Delivery Room Air Intake and Output 07/18/18 07/18/18 07/19/18 15:00 23:00 07:00 Intake Total 300 ml Output Total 950 ml 1000 ml Balance -950 ml -700 ml Images MRI Brain - A 9 mm old area of infarction is seen involving the right cerebellar hemisphere. Smaller areas of old infarction are seen involving both cerebellar hemispheres more superiorly, left greater than right. These measure 2 to 4 mm in size. A 4 mm old area of lacunar infarction is seen involving the right thalamus. 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 The edema and mass effect seen on the previous MRI examination has resolved. A wedge-shaped area of restricted diffusion is seen involving the posterior left parietal lobe which measures 4.5 cm in greatest diameter. This is consistent with an acute area of ischemia/infarction. There is surrounding edema without evidence of significant mass effect. PÉREZ DEE MD Jul 19, 2018 07:06
[2018-07-19] MEDS: LISINOPRIL 20 MG TABLET PO SCH (08:37)
[2018-07-19] MEDS: ASPIRIN ENTERIC COATED 325 MG TABLET.DR. PO SCH (08:39)
[2018-07-19] MEDS: glipiZIDE 5 MG TABLET PO SCH (08:39)
[2018-07-19] MEDS: PANTOPRAZOLE 40 MG TABLET.DR. PO SCH (08:39)
[2018-07-19] MEDS ORDERED: NON FORMULARY ITEM (Metformin Hcl 1 TAB) PO SCH (09:00)
--- NOTE | 2018-07-19 10:35 | PDOC ---
PROGRESS NOTES Assessment New and old infarcts in the left middle cerebral artery distribution, possible left middle cerebral artery occlusion. Also has a true fib/flutter that could have caused the strokes Plan MRA head and neck Cardiac workup Continue aspirin, may need NOAC Workup of renal problems. Rehabilitation modalities Subjective No complaints Objective Vital Signs Date Time Temp Pulse Resp B/P (MAP) Pulse Ox O2 Delivery O2 Flow Rate FiO2 07/19/18 08:37 55 124/65 07/19/18 08:00 Room Air 07/19/18 07:00 98.8 18 98 98.8 Intake and Output 07/19/18 06:59 Intake Total 300 ml Output Total 1950 ml Balance -1650 ml Intake Oral 300 ml Output Urine Total 1950 ml PHYSICAL EXAM Alert. Expressive and receptive aphasia PERRL. EOMI. CN: no focal findings. Muscle tone: normal. Muscle strength: 4/5, little weaker on the right, no pronator drift DTR: 2+ Plantar reflex: flexor Gait: not examined in bed. Sensory exam: no abnormal findings. Cerebellar: not cooperative Review of Relevant I have reviewed the following items samantha (where applicable) has been applied. Labs Laboratory Tests Test 07/17/18 21:40 07/17/18 21:46 07/18/18 00:50 07/18/18 04:15 White Blood Count 4.8 x10^3/uL (4.0-11.0) Red Blood Count 3.29 x10^6/uL (3.50-5.40) Hemoglobin 10.3 g/dL (12.0-15.5) Hematocrit 30.7 % (36.0-47.0) Mean Corpuscular Volume 93 fL (79-100) Mean Corpuscular Hemoglobin 31 pg (25-35) Mean Corpuscular Hemoglobin Concent 34 g/dL (31-37) Red Cell Distribution Width 13.1 % (11.5-14.5) Platelet Count 148 x10^3/uL (140-400) Neutrophils (%) (Auto) 61 % (31-73) Lymphocytes (%) (Auto) 31 % (24-48) Monocytes (%) (Auto) 6 % (0-9) Eosinophils (%) (Auto) 2 % (0-3) Basophils (%) (Auto) 0 % (0-3) Neutrophils # (Auto) 2.9 x10^3uL (1.8-7.7) Lymphocytes # (Auto) 1.5 x10^3/uL (1.0-4.8) Monocytes # (Auto) 0.3 x10^3/uL (0.0-1.1) Eosinophils # (Auto) 0.1 x10^3/uL (0.0-0.7) Basophils # (Auto) 0.0 x10^3/uL (0.0-0.2) Prothrombin Time 14.0 SEC (11.7-14.0) Prothromb Time International Ratio 1.1 (0.8-1.1) Sodium Level 130 mmol/L (136-145) 134 mmol/L (136-145) Potassium Level 4.3 mmol/L (3.5-5.1) 4.8 mmol/L (3.5-5.1) Chloride Level 95 mmol/L (98-107) 100 mmol/L (98-107) Carbon Dioxide Level 20 mmol/L (21-32) 21 mmol/L (21-32) Anion Gap 15 (6-14) 13 (6-14) Blood Urea Nitrogen 63 mg/dL (7-20) 58 mg/dL (7-20) Creatinine 3.5 mg/dL (0.6-1.0) 2.7 mg/dL (0.6-1.0) Estimated GFR (Cockcroft-Gault) 13.0 17.6 BUN/Creatinine Ratio 18 (6-20) 21 (6-20) Glucose Level 107 mg/dL (70-99) 109 mg/dL (70-99) Calcium Level 9.3 mg/dL (8.5-10.1) 9.3 mg/dL (8.5-10.1) Total Bilirubin 1.0 mg/dL (0.2-1.0) 1.1 mg/dL (0.2-1.0) Aspartate Amino Transf (AST/SGOT) 50 U/L (15-37) 46 U/L (15-37) Alanine Aminotransferase (ALT/SGPT) 64 U/L (14-59) 55 U/L (14-59) Alkaline Phosphatase 209 U/L (46-116) 191 U/L (46-116) Total Protein 8.3 g/dL (6.4-8.2) 7.7 g/dL (6.4-8.2) Albumin 3.6 g/dL (3.4-5.0) 3.3 g/dL (3.4-5.0) Albumin/Globulin Ratio 0.8 (1.0-1.7) 0.8 (1.0-1.7) Glucose (Fingerstick) 101 mg/dL (70-99) Urine Collection Type U cath Urine Color Yellow Urine Clarity Clear Urine pH 5.0 Urine Specific [place] 1.015 Urine Protein Negative mg/dL (NEG-TRACE) Urine Glucose (UA) Negative mg/dL (NEG) Urine Ketones (Stick) Negative mg/dL (NEG) Urine Blood Negative (NEG) Urine Nitrite Negative (NEG) Urine Bilirubin Negative (NEG) Urine Urobilinogen Dipstick 1.0 mg/dL (0.2 mg/dL) Urine Leukocyte Esterase Moderate (NEG) Urine RBC 0 /HPF (0-2) Urine WBC 5-10 /HPF (0-4) Urine Squamous Epithelial Cells Few /LPF Urine Amorphous Sediment Present /HPF Urine Bacteria Few /HPF (0-FEW) Urine Hyaline Casts Few /HPF Urine Mucus Mod /LPF Test 07/18/18 07:58 07/18/18 21:04 07/19/18 04:50 07/19/18 07:09 Glucose (Fingerstick) 117 mg/dL (70-99) 168 mg/dL (70-99) 119 mg/dL (70-99) Sodium Level 138 mmol/L (136-145) Potassium Level 4.5 mmol/L (3.5-5.1) Chloride Level 105 mmol/L (98-107) Carbon Dioxide Level 21 mmol/L (21-32) Anion Gap 12 (6-14) Blood Urea Nitrogen 40 mg/dL (7-20) Creatinine 1.8 mg/dL (0.6-1.0) Estimated GFR (Cockcroft-Gault) 28.1 Glucose Level 112 mg/dL (70-99) Calcium Level 9.3 mg/dL (8.5-10.1) Triglycerides Level 107 mg/dL (0-150) Cholesterol Level 105 mg/dL (0-200) LDL Cholesterol, Calculated 52 mg/dL (0-100) VLDL Cholesterol, Calculated 21 mg/dL (0-40) Non-HDL Cholesterol Calculated 73 mg/dL (0-129) HDL Cholesterol 32 mg/dL (40-60) Cholesterol/HDL Ratio 3.3 Laboratory Tests Test 07/18/18 21:04 07/19/18 04:50 07/19/18 07:09 Glucose (Fingerstick) 168 mg/dL (70-99) 119 mg/dL (70-99) Sodium Level 138 mmol/L (136-145) Potassium Level 4.5 mmol/L (3.5-5.1) Chloride Level 105 mmol/L (98-107) Carbon Dioxide Level 21 mmol/L (21-32) Anion Gap 12 (6-14) Blood Urea Nitrogen 40 mg/dL (7-20) Creatinine 1.8 mg/dL (0.6-1.0) Estimated GFR (Cockcroft-Gault) 28.1 Glucose Level 112 mg/dL (70-99) Calcium Level 9.3 mg/dL (8.5-10.1) Triglycerides Level 107 mg/dL (0-150) Cholesterol Level 105 mg/dL (0-200) LDL Cholesterol, Calculated 52 mg/dL (0-100) VLDL Cholesterol, Calculated 21 mg/dL (0-40) Non-HDL Cholesterol Calculated 73 mg/dL (0-129) HDL Cholesterol 32 mg/dL (40-60) Cholesterol/HDL Ratio 3.3 Medications Current Medications Sodium Chloride 1,000 ml @ 1,000 mls/hr 1X ONCE IV ; Start 07/17/18 at 23:33; Stop 07/18/18 at 00:32; Status DC Sodium Chloride 1,000 ml @ 100 mls/hr Q10H IV Last administered on 07/18/18at 02:11; Start 07/18/18 at 00:00; Stop 07/18/18 at 00:01; Status DC Ceftriaxone Sodium (Rocephin) 1 gm 1X ONCE IVP Last administered on 07/18/18at 05:26; Start 07/18/18 at 04:30; Stop 07/18/18 at 04:31; Status DC Acetaminophen (Tylenol) 650 mg PRN Q6HRS PRN PO TEMP > 100.4F; Start 07/18/18 at 08:45 Acetaminophen (Tylenol Supp) 650 mg PRN Q4HRS PRN [place] TEMP > 100.4F; Start 07/18 at 08:45 Aspirin (Ecotrin) 325 mg DAILYWBKFT PO Last administered on 07/19/18at 08:39; Start 07/18/18 at 09:30 Sodium Chloride 1,000 ml @ 100 mls/hr 1X ONCE IV Last administered on at 12:17; Start 07/18/18 at 09:45; Stop 07/18/18 at 19:44; Status DC Amlodipine Besylate (Norvasc) 10 mg DAILY PO ; Start 07/18/18 at 11:00; Stop at 15:15; Status DC Cetirizine HCl (ZyrTEC) 10 mg PRN DAILY PRN PO ALLERGIES; Start 07/18/18 at 10: 15 Clonidine HCl (Catapres Tts-2) 1 patch WEEKLY TD ; Start 07/18/18 at 11:00; Stop 07/18/18 at 13:19; Status DC Glipizide (Glucotrol) 5 mg DAILY PO Last administered on 07/19/18at 08:39; Start 07/18/18 at 11:00 Acetaminophen/ Hydrocodone Bitart (Lortab 5/325) 1 tab PRN Q6HRS PRN PO PAIN; Start 07/18/18 at 10:15 Levothyroxine Sodium (Synthroid) 100 mcg DAILY07 PO Last administered on at 06:07; Start 07/18/18 at 11:00 Lisinopril (Prinivil) 40 mg DAILY PO ; Start 07/18/18 at 11:00 Lorazepam (Ativan) 1 mg TID PRN PRN PO ANXIETY / AGITATION; Start 07/18/18 at 10:15 Simvastatin (Zocor) 5 mg HS PO Last administered on 07/18/18at 20:44; Start at 21:00 Hydralazine HCl (Apresoline) 25 mg PRN TID PRN PO HYPERTENSION; Start 07/18/18 at 14:00 Hydrochlorothiazide (Microzide) 12.5 mg DAILY PO ; Start 07/18/18 at 11:00; Stop 07/18/18 at 15:15; Status DC Non-Formulary Medication (Metformin Hcl ) 1 tab DAILY PO ; Start 07/19/18 at 09: 00; Status UNV Pantoprazole Sodium (Protonix) 40 mg DAILYAC PO Last administered on 07/19/18at 08:39; Start 07/18/18 at 11:00 Active Scripts Active Reported Lisinopril 40 Mg Tablet 1 Tab PO DAILY Amlodipine Besylate 10 Mg Tablet 1 Tab PO DAILY Simvastatin 5 Mg Tablet 1 Tab PO HS Metformin Hcl 500 Mg Tablet 1 Tab PO DAILY Glipizide 5 Mg Tablet 1 Tab PO DAILY Clonidine Tts-2 (Clonidine) 1 Each Patch.tdwk 1 Patch TD Q3DAYS Hydralazine Hcl 25 Mg Tablet 1 Tab PO Q8HRS PRN Zyrtec (Cetirizine Hcl) 10 Mg Tablet 10 Mg PO DAILY PRN Prilosec Otc (Omeprazole Magnesium) 20 Mg Tablet.dr 20 Mg PO DAILY Hydrochlorothiazide Tablet (Hydrochlorothiazide) 12.5 Mg Tablet 12.5 Mg PO DAILY Lorazepam 1 Mg Tablet 1 Tab PO TID PRN PRN [place] 5-325 Tablet (Acetaminophen/Hydrocodone Bitart) 1 Each Tablet 1-2 Tab PO PRN Q4-6HRS PRN Glipizide-Metformin 2.5-500 Mg (Glipizide/Metformin Hcl) 1 Each Tablet 1 Each PO DAILYWSUP Glipizide-Metformin 2.5-500 Mg (Glipizide/Metformin Hcl) 1 Each Tablet 2 Each PO DAILY Atenolol 100 Mg Tablet 1 Tab PO DAILY Levothyroxine Sodium 100 Mcg Tablet 1 Tab PO DAILY Metformin Hcl Er (Metformin Hcl) 500 Mg Tab.er.24h 500 Mg PO DAILYWBKFT Lisinopril 40 Mg Tablet 1 Tab PO DAILY Vitals/I & O Vital Sign - Last 24 Hours 07/18/18 07/18/18 07/18/18 07/18/18 10:40 11:00 11:00 15:00 Temp 98.1 98.2 98.1 98.2 Pulse 50 50 50 46 Resp 16 18 B/P (MAP) 99/47 (64) 99/47 99/47 94/41 (58) Pulse Ox 99 100 O2 Delivery Room Air Room Air 07/18/18 07/18/18 07/18/18 07/19/18 19:50 20:00 23:30 03:16 Temp 97.7 97.3 98.1 97.7 97.3 98.1 Pulse 51 52 60 Resp 20 20 20 B/P (MAP) 135/78 (97) 121/53 (75) 149/83 (105) Pulse Ox 100 100 100 O2 Delivery Room Air Room Air Room Air Room Air 07/19/18 07/19/18 07/19/18 07:00 08:00 08:37 Temp 98.8 98.8 Pulse 55 55 Resp 18 B/P (MAP) 124/65 (84) 124/65 Pulse Ox 98 O2 Delivery Room Air Room Air Intake and Output 07/18/18 07/18/18 07/19/18 14:59 22:59 06:59 Intake Total 300 ml Output Total 950 ml 1000 ml Balance -950 ml -700 ml Images MRI of the brain without contrast 07/18/2016 Comparison is made to the patient's CT scan of the head dated 07/17/2018. Additional comparison is made to patient's previous MRI of the brain dated 06/22/2018. Images from the study are degraded by patient motion. There is generalized parenchymal atrophy. Patchy, confluent and multiple focal areas of increased signal intensity are seen within the periventricular and subcortical white matter of both cerebral hemispheres on the FLAIR and T2-weighted images consistent with areas of small vessel ischemic disease. A 9 mm old area of infarction is seen involving the right cerebellar hemisphere. Smaller areas of old infarction are seen involving both cerebellar hemispheres more superiorly, left greater than right. These measure 2 to 4 mm in size. A 4 mm old area of lacunar infarction is seen involving the right thalamus. 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 The edema and mass effect seen on the previous MRI examination has resolved. A wedge-shaped area of restricted diffusion is seen involving the posterior left parietal lobe which measures 4.5 cm in greatest diameter. This is consistent with an acute area of ischemia/infarction. There is surrounding edema without evidence of significant mass effect. No additional acute parenchymal abnormality is seen. No extra-axial fluid collection is noted. There are minimal bilateral mastoid effusions, right greater than left.. Very mild mucosal thickening is seen scattered throughout the paranasal sinuses. 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 IMPRESSION: An area of acute ischemia/infarction is seen involving the left parietal lobe as outlined above. There is surrounding edema without evidence of significant mass effect. DEMARCO CORRIGAN MD Jul 19, 2018 10:35
[2018-07-19] MEDS ORDERED: ACETAMINOPHEN 650 MG SUPP.RECT. PR PRN (10:45)
[2018-07-19] MEDS ORDERED: ACETAMINOPHEN 325 MG TABLET. PO PRN (10:45)
[2018-07-19 11:00] VITALS: BP 109/55
--- NOTE | 2018-07-19 11:14 | RAD ---
MRA of the brain without contrast 07/19/2018 Clinical History: Left MCA infarct. Speech difficulty. Technique: Using 3-D time of flight techniques, a MRA of the major arterial structures surrounding the [place] of [place] was performed. Findings: Comparison is made to the patient's MRI of the brain dated 07/18/2018. Mild to moderate atheromatous plaque formation is seen involving the cavernous portions of both internal carotid arteries. No area of stenosis or occlusion is seen. Mild to moderate atheromatous plaque formation is seen involving the proximal anterior and middle cerebral arteries, left greater than right. No hemodynamically significant stenosis is seen. Diminished arterial flow is seen to the branches of the left middle cerebral artery when compared to the right. Mild atheromatous plaque formation is seen involving the proximal posterior cerebral arteries bilaterally. No area of stenosis or occlusion is seen. IMPRESSION: Diminished arterial flow is seen to the branches of the left middle cerebral artery which corresponds to the patient's area of infarction. No hemodynamically significant stenosis is seen. Electronically signed by: Eduardo Schilling MD (07/19/2018 11:10 AM) [id number]
--- NOTE | 2018-07-19 11:28 | PDOC ---
SUBJECTIVE ROS Stable OBJECTIVE Vital Signs Vital Signs Date Time Temp Pulse Resp B/P (MAP) Pulse Ox O2 Delivery O2 Flow Rate FiO2 07/19/18 08:37 55 124/65 07/19/18 08:00 Room Air 07/19/18 07:00 98.8 18 98 98.8 I & 0 Intake and Output 07/19/18 06:59 Intake Total 300 ml Output Total 1950 ml Balance -1650 ml Intake Oral 300 ml Output Urine Total 1950 ml PHYSICAL EXAM Physical Exam GEN: NAD HEEN: OM mildly dry NECK: supple CVS: RRR RESP: CTA GI: BS + ve, NO Bruit, Non Tender, : No CVA tenderness, No Suprapubic Tenderness Skin No Rash Neuro- Confused? Baseline DIAGNOSIS/ASSESSMENT Assessment & Plan TIFFANIE - dehydration , Hypotensive Multiple antihypertensives at home , UA unremarkable Creatinine improving with IVF Holding antihypertensives, BP improved Renal US if persistent TIFFANIE , baseline Creat was normal at recent admission HTN- multiple antihypertensives at home Held john to Low BP, at goal today Hyponatremia- mild, Normal today COMMENT/RELEVANT DATA Meds Current Medications Medications (Trade) Dose Ordered Sig/Irma Start Time Stop Time Status Last Admin Dose Admin Acetaminophen (Tylenol Supp) 650 mg PRN Q4HRS PRN 07/19/18 10:45 Acetaminophen (Tylenol) 650 mg PRN Q6HRS PRN 07/19/18 10:45 Acetaminophen/ Hydrocodone Bitart (Lortab 5/325) 1 tab PRN Q6HRS PRN 07/18/18 10:15 Amlodipine Besylate (Norvasc) 10 mg DAILY 07/18/18 11:00 07/18/18 15:15 DC Aspirin (Ecotrin) 325 mg DAILYWBKFT 07/18/18 09:30 07/19/18 08:39 325 MG Ceftriaxone Sodium (Rocephin) 1 gm 1X ONCE 07/18/18 04:30 07/18/18 04:31 DC 07/18/18 05:26 1 GM Cetirizine HCl (ZyrTEC) 10 mg PRN DAILY PRN 07/18/18 10:15 Clonidine HCl (Catapres Tts-2) 1 patch WEEKLY 07/18/18 11:00 07/18/18 13:19 DC Glipizide (Glucotrol) 5 mg DAILY 07/18/18 11:00 07/19/18 08:39 5 MG Hydralazine HCl (Apresoline) 25 mg PRN TID PRN 07/18/18 14:00 Hydrochlorothiazide (Microzide) 12.5 mg DAILY 07/18/18 11:00 07/18/18 15:15 DC Levothyroxine Sodium (Synthroid) 100 mcg DAILY07 07/18/18 11:00 07/19/18 06:07 100 MCG Lisinopril (Prinivil) 40 mg DAILY 07/18/18 11:00 Lorazepam (Ativan) 1 mg TID PRN PRN 07/18/18 10:15 Non-Formulary Medication (Metformin Hcl ) 1 tab DAILY 07/19/18 09:00 UNV Pantoprazole Sodium (Protonix) 40 mg DAILYAC 07/18/18 11:00 07/19/18 08:39 40 MG Simvastatin (Zocor) 5 mg HS 07/18/18 21:00 07/18/18 20:44 5 MG Sodium Chloride 1,000 ml @ 100 mls/hr 1X ONCE 07/18/18 09:45 07/18/18 19:44 DC 07/18/18 12:17 100 MLS/HR Lab Laboratory Tests Test 07/18/18 21:04 07/19/18 04:50 07/19/18 07:09 Glucose (Fingerstick) 168 mg/dL (70-99) 119 mg/dL (70-99) Sodium Level 138 mmol/L (136-145) Potassium Level 4.5 mmol/L (3.5-5.1) Chloride Level 105 mmol/L (98-107) Carbon Dioxide Level 21 mmol/L (21-32) Anion Gap 12 (6-14) Blood Urea Nitrogen 40 mg/dL (7-20) Creatinine 1.8 mg/dL (0.6-1.0) Estimated GFR (Cockcroft-Gault) 28.1 Glucose Level 112 mg/dL (70-99) Calcium Level 9.3 mg/dL (8.5-10.1) Triglycerides Level 107 mg/dL (0-150) Cholesterol Level 105 mg/dL (0-200) LDL Cholesterol, Calculated 52 mg/dL (0-100) VLDL Cholesterol, Calculated 21 mg/dL (0-40) Non-HDL Cholesterol Calculated 73 mg/dL (0-129) HDL Cholesterol 32 mg/dL (40-60) Cholesterol/HDL Ratio 3.3 Results All relevant outside records, renal labs, imaging studies, telemetry/EKG's were reviewed. BREA PERES MD Jul 19, 2018 11:28
--- NOTE | 2018-07-19 11:31 | RAD ---
MRA of the Neck without and with Contrast 07/19/2018 Clinical History: Left MCA infarct. Speech difficulty. Technique: Using 2D time of flight techniques, a MRA of the carotid and vertebral arterial structures within the neck was performed. 3D MIP images were generated in multiple projections for a MRA. Findings: Comparison is made to carotid ultrasound dated 06/22/2018. Mild to moderate atheromatous plaque formation is seen involving both carotid bifurcations, left greater than right. No hemodynamically significant stenosis is seen. The left vertebral artery is dominant. The right vertebral artery is very small and difficult to evaluate. The left vertebral artery demonstrates normal antegrade flow. No area of stenosis or occlusion is seen. Impression: Mild to moderate atheromatous plaque formation is seen involving both carotid bifurcations, left greater than right. No hemodynamically significant stenosis or area of occlusion is seen. Stenosis calculation for MRA are based on measurement of the distal internal carotid artery diameter in accordance with the NASCET methodology. Electronically signed by: Eduardo Schilling MD (07/19/2018 11:28 AM) [id number]
--- NOTE | 2018-07-19 14:33 | NUR ---
EZEKIEL following pt. Discussed with PT/OT regarding dc plan. Recommendation is rehab/SNU but is able to dc home with home health services once goals are met. Spoke with pt's daughter, Lena, phone: [phone] via phone. Daughter reported pt has been at [facility] for two weeks and went home with [facility]. Daughter reported home with home health is a better option and chose [facility]. Leisa from [facility] notified. Discussed with RN. Addendum: 07/20/18 at 1435 by KAYLYNN FALCON Physician notified for plans for HH.
[2018-07-19 14:50] VITALS: BP 126/61
--- NOTE | 2018-07-19 15:05 | PDOC ---
CARDIO Progress Notes Date and Time Date of Service 07/19/2018 Time of Evaluation 1500 Subjective Subjective: No Chest Pain, No shortness of breath Vitals Vitals Vital Signs Date Time Temp Pulse Resp B/P (MAP) Pulse Ox O2 Delivery O2 Flow Rate FiO2 07/19/18 14:50 97.9 55 18 126/61 (82) 99 Room Air 97.9 Weight Weight [ ] Input and Output Intake and Output Intake and Output 07/19/18 06:59 Intake Total 300 ml Output Total 1950 ml Balance -1650 ml Intake Oral 300 ml Output Urine Total 1950 ml Laboratory Labs Laboratory Tests Test 07/18/18 21:04 07/19/18 04:50 07/19/18 07:09 07/19/18 12:17 Glucose (Fingerstick) 168 mg/dL (70-99) 119 mg/dL (70-99) 66 mg/dL (70-99) Sodium Level 138 mmol/L (136-145) Potassium Level 4.5 mmol/L (3.5-5.1) Chloride Level 105 mmol/L (98-107) Carbon Dioxide Level 21 mmol/L (21-32) Anion Gap 12 (6-14) Blood Urea Nitrogen 40 mg/dL (7-20) Creatinine 1.8 mg/dL (0.6-1.0) Estimated GFR (Cockcroft-Gault) 28.1 Glucose Level 112 mg/dL (70-99) Calcium Level 9.3 mg/dL (8.5-10.1) Triglycerides Level 107 mg/dL (0-150) Cholesterol Level 105 mg/dL (0-200) LDL Cholesterol, Calculated 52 mg/dL (0-100) VLDL Cholesterol, Calculated 21 mg/dL (0-40) Non-HDL Cholesterol Calculated 73 mg/dL (0-129) HDL Cholesterol 32 mg/dL (40-60) Cholesterol/HDL Ratio 3.3 Physical Exam HEENT: Neck Supple W Full Motion Chest: Symmetric LUNGS: Clear to Auscultation Heart: S1S2, RRR (SR/SB), irregularly irregular Abdomen: Soft N/T Extremities: No Edema, No Calf Tenderness Neurology: other (aphasic, pleasant and cooperative) Assessment Assessment 1. Acute CVA: with recent left parietal and temporal with no recurrent parietal CVA with some edema per MRI 2. Severe TIFFANIE: improved with hydration. nephrology following 3. HTN: better 4. DM2/HLP 5. Asymptomatic SB. lowest mid 40s. Off AV jolie blocking agents. HR better in the 50s but no AFIB or atrial flutter. 6. Mild to moderate carotid artery disease. 7. Positive for orthostasis: BP better after IV hydration 8. Aphasia Recommendations 1. Plan for LINQ as outpt. 2. Avoid AV jolie blocking agents, Hold BP meds for now. ASA and statin 3. Mechanical compression. Supportive care. . BEATRIZ YOO APRN Jul 19, 2018 15:05
--- NOTE | 2018-07-19 16:00 | NUR ---
Pt voided approx. 350 mL urine, PVR done and patient had approx. 72mL retained. Pt has no complaints of discomfort when voiding. Will continue to monitor.
[2018-07-19 19:00] VITALS: BP 134/84
[2018-07-19] MEDS: SIMVASTATIN 5 MG TABLET. PO SCH (20:42)
[2018-07-19 23:13] VITALS: BP 125/91
[2018-07-20 03:00] VITALS: BP 118/66
[2018-07-20 07:10] VITALS: BP 134/66
[2018-07-20] MEDS: LISINOPRIL 20 MG TABLET PO SCH (08:19)
[2018-07-20] MEDS: PANTOPRAZOLE 40 MG TABLET.DR. PO SCH (08:19)
[2018-07-20] MEDS: LEVOTHYROXINE 100 MCG TABLET PO SCH (08:19)
[2018-07-20] MEDS: ASPIRIN ENTERIC COATED 325 MG TABLET.DR. PO SCH (08:19)
[2018-07-20] MEDS: glipiZIDE 5 MG TABLET PO SCH (08:19)
--- NOTE | 2018-07-20 08:21 | PDOC ---
PROGRESS NOTES Chief Complaint Chief Complaint A/P: Aphasia - based on CT head has a large left parietal and temporal CVA with receptive and expressive aphasia, seems to be feeling her right hand as though there is sensation loss. Does not follow commands at all. ASA, statin, Neurology consultation. MRI to confirm evolution and worsening infarct. 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 Hypokalemia - will replace, check mag Bilirubin elevated - will start bowel regimen HTN - restart home meds, add amlodipine DM2 - cont oral meds, add sliding scale Hypothyroidism - cont levothyroxine Bradycardia - this looks like slow afib or flutter, will have cardiology to evaluate as this is her second episode of CVA in a short time Hypotension - orthostatics positive - IVF resuscitation FEN - NPO pending STAFF CYTOTECHNOLOGIST evaluation PPX - Lovenox FULL CODE Inpatient for acute CVA, will need rehab services on d/c, inpatient likely 2 midnights History of Present Illness History of Present Illness 68 year old female w/ PMHx HTN, DM2, hypothyroidism, 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 Discharge summary does note a 4 out of 5 strength on the right upper extremity however. Apparently she got into the bathtub okay a little bit before 6:30 and then was having trouble getting out by herself they were worried she was having another stroke so they brought her to the ER. Otherwise she has been well recently they say she is eating and drinking okay denies any other pain but the history is limited by the patient's aphasia. CT revealed wedge shaped hypodensity in left MCA territory parietal and temporal lobes. MRI shows new parietal infarct and old cerebellar infarcts as well as prior infarct. 07/19: She was apparently upset last night. BP improved a bit with IVF. Cr came down to 1.8. No complaints that make any sense. Seen by cardiology last night for my concern of possible atrial arrhythmia, was reassured there is no arrhythmia. MRA head and neck - Mild to moderate atheromatous plaque formation is seen involving both carotid bifurcations, left greater than right. No hemodynamically significant stenosis or area of occlusion is seen. [place] out Today she is not responding appropriately, which is unchanged. Unable to assess her complaints secondary to this. She will have outpatient cardiology f/u and neurology f/u scheduled Plan: D/C IVF Ambulate Monitor BP Rehab modalities, needs skilled services on d/c, likely home health. Will await PT/OT recs on this. She needs physical redirection to achieve tasks with her aphasia Vitals Vitals Vital Signs Date Time Temp Pulse Resp B/P (MAP) Pulse Ox O2 Delivery O2 Flow Rate FiO2 07/20/18 07:10 97.8 57 18 134/66 (88) 98 Room Air 97.8 Physical Exam General: Alert, No acute distress Heart: Regular rate (SB ), Normal S1, Normal S2, Other (2/6 systolic murmur to LLS border) Lungs: Clear Abdomen: Normal bowel sounds, Soft, No tenderness, No hepatosplenomegaly, No masses Extremities: No clubbing, No cyanosis, No edema, Normal pulses, No tenderness/ swelling Skin: No rashes, No breakdown, No significant lesion Labs LABS Laboratory Tests Test 07/19/18 12:17 07/19/18 16:49 07/19/18 21:18 07/20/18 07:16 Glucose (Fingerstick) 66 mg/dL (70-99) 108 mg/dL (70-99) 91 mg/dL (70-99) 106 mg/dL (70-99) Comment Review of Relevant I have reviewed the following items samantha (where applicable) has been applied. Labs Laboratory Tests Test 07/18/18 21:04 07/19/18 04:50 07/19/18 07:09 07/19/18 12:17 Glucose (Fingerstick) 168 mg/dL (70-99) 119 mg/dL (70-99) 66 mg/dL (70-99) Sodium Level 138 mmol/L (136-145) Potassium Level 4.5 mmol/L (3.5-5.1) Chloride Level 105 mmol/L (98-107) Carbon Dioxide Level 21 mmol/L (21-32) Anion Gap 12 (6-14) Blood Urea Nitrogen 40 mg/dL (7-20) Creatinine 1.8 mg/dL (0.6-1.0) Estimated GFR (Cockcroft-Gault) 28.1 Glucose Level 112 mg/dL (70-99) Calcium Level 9.3 mg/dL (8.5-10.1) Triglycerides Level 107 mg/dL (0-150) Cholesterol Level 105 mg/dL (0-200) LDL Cholesterol, Calculated 52 mg/dL (0-100) VLDL Cholesterol, Calculated 21 mg/dL (0-40) Non-HDL Cholesterol Calculated 73 mg/dL (0-129) HDL Cholesterol 32 mg/dL (40-60) Cholesterol/HDL Ratio 3.3 Test 07/19/18 16:49 07/19/18 21:18 07/20/18 07:16 Glucose (Fingerstick) 108 mg/dL (70-99) 91 mg/dL (70-99) 106 mg/dL (70-99) Laboratory Tests Test 07/19/18 12:17 07/19/18 16:49 07/19/18 21:18 07/20/18 07:16 Glucose (Fingerstick) 66 mg/dL (70-99) 108 mg/dL (70-99) 91 mg/dL (70-99) 106 mg/dL (70-99) Microbiology 07/18/18 Urine Culture - Final, Complete 07/18/18 Urine Culture Result 1 (SOFIA) - Final, Complete Medications Current Medications Sodium Chloride 1,000 ml @ 1,000 mls/hr 1X ONCE IV ; Start 07/17/18 at 23:33; Stop 07/18/18 at 00:32; Status DC Sodium Chloride 1,000 ml @ 100 mls/hr Q10H IV Last administered on 07/18/18at 02:11; Start 07/18/18 at 00:00; Stop 07/18/18 at 00:01; Status DC Ceftriaxone Sodium (Rocephin) 1 gm 1X ONCE IVP Last administered on 07/18/18at 05:26; Start 07/18/18 at 04:30; Stop 07/18/18 at 04:31; Status DC Acetaminophen (Tylenol) 650 mg PRN Q6HRS PRN PO TEMP > 100.4F; Start 07/18/18 at 08:45; Status Cancel Acetaminophen (Tylenol Supp) 650 mg PRN Q4HRS PRN AL TEMP > 100.4F; Start 07/18 at 08:45; Status Cancel Aspirin (Ecotrin) 325 mg DAILYWBKFT PO Last administered on 07/19/18at 08:39; Start 07/18/18 at 09:30 Sodium Chloride 1,000 ml @ 100 mls/hr 1X ONCE IV Last administered on at 12:17; Start 07/18/18 at 09:45; Stop 07/18/18 at 19:44; Status DC Amlodipine Besylate (Norvasc) 10 mg DAILY PO ; Start 07/18/18 at 11:00; Stop at 15:15; Status DC Cetirizine HCl (ZyrTEC) 10 mg PRN DAILY PRN PO ALLERGIES; Start 07/18/18 at 10: 15 Clonidine HCl (Catapres Tts-2) 1 patch WEEKLY TD ; Start 07/18/18 at 11:00; Stop 07/18/18 at 13:19; Status DC Glipizide (Glucotrol) 5 mg DAILY PO Last administered on 07/19/18at 08:39; Start 07/18/18 at 11:00 Acetaminophen/ Hydrocodone Bitart (Lortab 5/325) 1 tab PRN Q6HRS PRN PO PAIN; Start 07/18/18 at 10:15 Levothyroxine Sodium (Synthroid) 100 mcg DAILY07 PO Last administered on at 06:07; Start 07/18/18 at 11:00 Lisinopril (Prinivil) 40 mg DAILY PO ; Start 07/18/18 at 11:00 Lorazepam (Ativan) 1 mg TID PRN PRN PO ANXIETY / AGITATION; Start 07/18/18 at 10:15 Simvastatin (Zocor) 5 mg HS PO Last administered on 07/19/18at 20:42; Start at 21:00 Hydralazine HCl (Apresoline) 25 mg PRN TID PRN PO HYPERTENSION; Start 07/18/18 at 14:00 Hydrochlorothiazide (Microzide) 12.5 mg DAILY PO ; Start 07/18/18 at 11:00; Stop 07/18/18 at 15:15; Status DC Non-Formulary Medication (Metformin Hcl ) 1 tab DAILY PO ; Start 07/19/18 at 09: 00; Status UNV Pantoprazole Sodium (Protonix) 40 mg DAILYAC PO Last administered on 07/19/18at 08:39; Start 07/18/18 at 11:00 Acetaminophen (Tylenol) 650 mg PRN Q6HRS PRN PO TEMP > 100.4F; Start 07/19/18 at 10:45 Acetaminophen (Tylenol Supp) 650 mg PRN Q4HRS PRN AL TEMP > 100.4F; Start 07/19 at 10:45 Active Scripts Active Reported Lisinopril 40 Mg Tablet 1 Tab PO DAILY Amlodipine Besylate 10 Mg Tablet 1 Tab PO DAILY Simvastatin 5 Mg Tablet 1 Tab PO HS Metformin Hcl 500 Mg Tablet 1 Tab PO DAILY Glipizide 5 Mg Tablet 1 Tab PO DAILY Clonidine Tts-2 (Clonidine) 1 Each Patch.tdwk 1 Patch TD Q3DAYS Hydralazine Hcl 25 Mg Tablet 1 Tab PO Q8HRS PRN Zyrtec (Cetirizine Hcl) 10 Mg Tablet 10 Mg PO DAILY PRN Prilosec Otc (Omeprazole Magnesium) 20 Mg Tablet.dr 20 Mg PO DAILY Hydrochlorothiazide Tablet (Hydrochlorothiazide) 12.5 Mg Tablet 12.5 Mg PO DAILY Lorazepam 1 Mg Tablet 1 Tab PO TID PRN PRN [place] 5-325 Tablet (Acetaminophen/Hydrocodone Bitart) 1 Each Tablet 1-2 Tab PO PRN Q4-6HRS PRN Glipizide-Metformin 2.5-500 Mg (Glipizide/Metformin Hcl) 1 Each Tablet 1 Each PO DAILYWSUP Glipizide-Metformin 2.5-500 Mg (Glipizide/Metformin Hcl) 1 Each Tablet 2 Each PO DAILY Atenolol 100 Mg Tablet 1 Tab PO DAILY Levothyroxine Sodium 100 Mcg Tablet 1 Tab PO DAILY Metformin Hcl Er (Metformin Hcl) 500 Mg Tab.er.24h 500 Mg PO DAILYWBKFT Lisinopril 40 Mg Tablet 1 Tab PO DAILY Vitals/I & O Vital Sign - Last 24 Hours 07/19/18 07/19/18 07/19/18 07/19/18 08:37 11:00 14:50 19:00 Temp 97.8 97.9 98.4 97.8 97.9 98.4 Pulse 55 51 55 60 Resp 18 18 20 B/P (MAP) 124/65 109/55 (73) 126/61 (82) 134/84 (101) Pulse Ox 97 99 100 O2 Delivery Room Air Room Air Room Air 07/19/18 07/19/18 07/20/18 07/20/18 20:20 23:13 03:00 07:10 Temp 98.6 97.8 97.8 98.6 97.8 97.8 Pulse 71 77 57 Resp 20 18 18 B/P (MAP) 125/91 (102) 118/66 (83) 134/66 (88) Pulse Ox 99 99 98 O2 Delivery Room Air Room Air Room Air Room Air Intake and Output 07/19/18 07/19/18 07/20/18 14:59 22:59 06:59 Intake Total 240 ml Output Total 250 ml 350 ml 200 ml Balance -10 ml -350 ml -200 ml PÉREZ DEE MD Jul 20, 2018 08:21
[2018-07-20 09:52] LABS: ALBUMIN 3.5 g/dL (3.4-5.0); CALCIUM 9.6 mg/dL (8.5-10.1); CREATININE 1.6 mg/dL (0.6-1.0); GFR 32.2; PHOSPHORUS 4.4 mg/dL (2.6-4.7); POTASSIUM 4.2 mmol/L (3.5-5.1)
[2018-07-20 11:10] VITALS: BP 122/59
--- NOTE | 2018-07-20 12:21 | SNU/HH DC ---
DISCHARGE WITH HOME HEALTH DISCHARGE INFORMATION: Discharge Date: Jul 20, 2018 Condition on Discharge: Stable CODE STATUS: Code Status: Full HOME HEALTH: Face to Face: I certify this patient is under my care and that I, or a nurse practitioner or physician's kennel assistant working with me, had a face to face encounter that meets the physician face to face encounter requirements with this patient on 07/20/18. Medical Complications: CVA, DM, HTN Detention For: Assess & Educate Safety, Assess/Skilled Observatio, Diabetic Care, Medication Management Physical Therapy For: Evalulation/Treatment Occupational Therapy For: Evaluation/Treatment Home Health Aide For: Self-care ELECTRIC GOL[employer] C[employer] REPAIRER For: Community Resources Pt Meets Homebound Status: Poor cognition POST DISCHARGE ORDERS: Activity Instructions for Disc: Resume previous activity Weight Bearing Status after Di: Full weight bearing DIET AFTER DISCHARGE: ADA CHECKS AFTER DISCHARGE: Checks after discharge: Check blood press - daily, Check blood sugar, ac/hs FOLLOW-UP: Follow up with: Neurology - Dr. Dawn TREATMENT/EQUIPMENT ORDERS: Adaptive Equipment Issued: Four wheeled walker CERTIFICATION STATEMENT: Certification Statement: Certification Statement: Based on the above finding, I certify that this patient is confined to the home and needs intermittent snf care, physical therapy and/or speech therapy, or continues to need occupational therapy.~ This patient is under my care, and I have initiated the establishment of the plan of care.~ This patient will be followed by myself or a community physician who will periodically review the plan of care. Home Meds Active Scripts Aspirin (ASPIRIN EC) 325 Mg Tablet., 325 MG PO DAILYWBKFT for CVA for 30 Days , #30 TAB.SR 11 Refills Prov:PÉREZ DEE MD 07/20/18 Reported Medications Amlodipine Besylate (AMLODIPINE BESYLATE) 10 Mg Tablet, 1 TAB PO DAILY for htn 07/18/18 Simvastatin (SIMVASTATIN) 5 Mg Tablet, 1 TAB PO HS for cholesterol 07/18/18 Glipizide (GLIPIZIDE) 5 Mg Tablet, 1 TAB PO DAILY for diabetes 07/18/18 Hydralazine Hcl (HYDRALAZINE HCL) 25 Mg Tablet, 1 TAB PO Q8HRS PRN for HYPERTENSION, SEE COMMENTS 07/18/18 Cetirizine Hcl (ZYRTEC) 10 Mg Tablet, 10 MG PO DAILY PRN for ALLERGIES, TAB 06/22/18 Omeprazole Magnesium (PRILOSEC OTC) 20 Mg Tablet.dr, 20 MG PO DAILY for allergies, TAB 06/22/18 Lorazepam (LORAZEPAM) 1 Mg Tablet, 1 TAB PO TID PRN PRN for ANXIETY / AGITATION , #90 TAB 06/22/18 Hydrocodone/Apap 5-325 (NORCO 5-325 TABLET) 1 Each Tablet, 1-2 TAB PO PRN Q4- 6HRS PRN for PAIN, #40 TAB 06/22/18 Levothyroxine Sodium (LEVOTHYROXINE SODIUM) 100 Mcg Tablet, 1 TAB PO DAILY for Hypothyroidism , #30 TAB 5 Refills 06/22/18 Discontinued Reported Medications Lisinopril (Lisinopril) 40 Mg Tablet, 1 TAB PO DAILY for htn 07/18/18 Metformin Hcl (METFORMIN HCL) 500 Mg Tablet, 1 TAB PO DAILY for diabetes 07/18/18 Clonidine (CLONIDINE TTS-2) 1 Each Patch.tdwk, 1 PATCH TD Q3DAYS for hypertension 07/18/18 Hydrochlorothiazide (HYDROCHLOROTHIAZIDE TABLET) 12.5 Mg Tablet, 12.5 MG PO DAILY for DIURETIC, TAB 0 Refills 06/22/18 Glipizide/Metformin Hcl (GLIPIZIDE-METFORMIN 2.5-500 MG) 1 Each Tablet, 1 EACH PO DAILYWSUP for DMII, TAB 06/22/18 Glipizide/Metformin Hcl (GLIPIZIDE-METFORMIN 2.5-500 MG) 1 Each Tablet, 2 EACH PO DAILY for DMII, TAB 06/22/18 Atenolol (ATENOLOL) 100 Mg Tablet, 1 TAB PO DAILY for HTN , #30 TAB 5 Refills 06/22/18 Metformin Hcl (METFORMIN HCL ER) 500 Mg Tab.er.24h, 500 MG PO DAILYWBKFT for ANTI-DIABETIC, TAB 0 Refills 06/22/18 Lisinopril (LISINOPRIL) 40 Mg Tablet, 1 TAB PO DAILY for HTN, #30 TAB 5 Refills 06/22/18 PÉREZ DEE MD Jul 20, 2018 12:21
--- NOTE | 2018-07-20 14:52 | PDOC3 ---
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 Discharge summary does note a 4 out of 5 strength on the right upper extremity however. Apparently she got into the bathtub okay a little bit before 6:30 and then was having trouble getting out by herself they were worried she was having another stroke so they brought her to the ER. Otherwise she has been well recently they say she is eating and drinking okay denies any other pain but the history is limited by the patient's aphasia. CT revealed wedge shaped hypodensity in left MCA territory parietal and temporal lobes. MRI shows new parietal infarct and old cerebellar infarcts as well as prior infarct. 07/19: She was apparently upset last night. BP improved a bit with IVF. Cr came down to 1.8. No complaints that make any sense. Seen by cardiology last night for my concern of possible atrial arrhythmia, was reassured there is no arrhythmia. MRA head and neck - Mild to moderate atheromatous plaque formation is seen involving both carotid bifurcations, left greater than right. No hemodynamically significant stenosis or area of occlusion is seen. [place] out Today she is not responding appropriately, which is unchanged. Unable to assess her complaints secondary to this. She will have outpatient cardiology f/u and neurology f/u scheduled Greater than 30 minutes [facility] Aphasia - based on CT head has a large left parietal and temporal CVA with receptive and expressive aphasia, seems to be feeling her right hand as though there is sensation loss. Does not follow commands at all. ASA, statin, Neurology consultation. MRI to confirm evolution and worsening infarct. 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 Hypokalemia - replaced, check mag Bilirubin elevated - bowel regimen HTN - restarted home meds, added amlodipine instead of lisinopril for her TIFFANIE DM2 - cont oral meds, add sliding scale Hypothyroidism - cont levothyroxine Bradycardia - not afib or flutter, cardiology will consider outpatient monitoring Hypotension - orthostatics positive - IVF resuscitation Brief Hospital Course Allergies Allergies Coded Allergies Type Severity Reaction Last Updated Verified Influenza Virus Vaccines Allergy Intermediate Hives 07/17/18 Yes erythromycin base Allergy Intermediate 07/17/18 Yes metoprolol Allergy Intermediate 07/17/18 Yes atorvastatin Allergy Mild Diarrhea 07/17/18 Yes Vital Signs Vital Signs Date Time Temp Pulse Resp B/P (MAP) Pulse Ox O2 Delivery O2 Flow Rate FiO2 07/20/18 11:10 98.3 57 18 122/59 (80) 100 Room Air 98.3 Lab Results Laboratory Tests Test 07/18/18 21:04 07/19/18 04:50 07/19/18 07:09 07/19/18 12:17 Glucose (Fingerstick) 168 mg/dL (70-99) 119 mg/dL (70-99) 66 mg/dL (70-99) Sodium Level 138 mmol/L (136-145) Potassium Level 4.5 mmol/L (3.5-5.1) Chloride Level 105 mmol/L (98-107) Carbon Dioxide Level 21 mmol/L (21-32) Anion Gap 12 (6-14) Blood Urea Nitrogen 40 mg/dL (7-20) Creatinine 1.8 mg/dL (0.6-1.0) Estimated GFR (Cockcroft-Gault) 28.1 Glucose Level 112 mg/dL (70-99) Calcium Level 9.3 mg/dL (8.5-10.1) Triglycerides Level 107 mg/dL (0-150) Cholesterol Level 105 mg/dL (0-200) LDL Cholesterol, Calculated 52 mg/dL (0-100) VLDL Cholesterol, Calculated 21 mg/dL (0-40) Non-HDL Cholesterol Calculated 73 mg/dL (0-129) HDL Cholesterol 32 mg/dL (40-60) Cholesterol/HDL Ratio 3.3 Test 07/19/18 16:49 07/19/18 21:18 07/20/18 07:16 07/20/18 09:25 Glucose (Fingerstick) 108 mg/dL (70-99) 91 mg/dL (70-99) 106 mg/dL (70-99) Sodium Level 137 mmol/L (136-145) Potassium Level 4.2 mmol/L (3.5-5.1) Chloride Level 101 mmol/L (98-107) Carbon Dioxide Level 23 mmol/L (21-32) Anion Gap 13 (6-14) Blood Urea Nitrogen 24 mg/dL (7-20) Creatinine 1.6 mg/dL (0.6-1.0) Estimated GFR (Cockcroft-Gault) 32.2 Glucose Level 169 mg/dL (70-99) Calcium Level 9.6 mg/dL (8.5-10.1) Phosphorus Level 4.4 mg/dL (2.6-4.7) Albumin 3.5 g/dL (3.4-5.0) Test 07/20/18 11:08 Glucose (Fingerstick) 146 mg/dL (70-99) Laboratory Tests Test 07/19/18 16:49 07/19/18 21:18 07/20/18 07:16 07/20/18 09:25 Glucose (Fingerstick) 108 mg/dL (70-99) 91 mg/dL (70-99) 106 mg/dL (70-99) Sodium Level 137 mmol/L (136-145) Potassium Level 4.2 mmol/L (3.5-5.1) Chloride Level 101 mmol/L (98-107) Carbon Dioxide Level 23 mmol/L (21-32) Anion Gap 13 (6-14) Blood Urea Nitrogen 24 mg/dL (7-20) Creatinine 1.6 mg/dL (0.6-1.0) Estimated GFR (Cockcroft-Gault) 32.2 Glucose Level 169 mg/dL (70-99) Calcium Level 9.6 mg/dL (8.5-10.1) Phosphorus Level 4.4 mg/dL (2.6-4.7) Albumin 3.5 g/dL (3.4-5.0) Test 07/20/18 11:08 Glucose (Fingerstick) 146 mg/dL (70-99) Brief Hospital Course Ms. Alford is a 68 old [sex] who presented with [ ] Discharge Information Condition at Discharge: Improved Follow Up: Weeks (2) Disposition/Orders: D/C to Home w/ HH ([facility]) Scheduled Amlodipine Besylate (Amlodipine Besylate) 10 Mg Tablet, 1 TAB PO DAILY for htn, (Reported) Entered as Reported by: Noemi Block on 07/18/18 437 Last Action: Continued on 07/18/181002 by PÉREZ DEE MD Glipizide (Glipizide) 5 Mg Tablet, 1 TAB PO DAILY for diabetes, (Reported) Entered as Reported by: Noemi Block on 07/18/18437 Last Action: Continued on 07/18/181002 by PÉREZ DEE MD Levothyroxine Sodium (Levothyroxine Sodium) 100 Mcg Tablet, 1 TAB PO DAILY for Hypothyroidism , #30 Ref 5 (Reported) Entered as Reported by: LESLY BEDOLLA on 06/22/18317 Last Action: Continued on 07/18/181002 by PÉREZ DEE MD Omeprazole Magnesium (Prilosec Otc) 20 Mg Tablet.dr, 20 MG PO DAILY for allergies, (Reported) Entered as Reported by: FERNANDO BRIONES on 06/22/182358 Last Action: Converted on 07/18/181002 by PÉREZ DEE MD Simvastatin (Simvastatin) 5 Mg Tablet, 1 TAB PO HS for cholesterol, (Reported) Entered as Reported by: Noemi Block on 07/18/18437 Last Action: Continued on 07/18/181002 by PÉREZ DEE MD Scheduled PRN Cetirizine Hcl (Zyrtec) 10 Mg Tablet, 10 MG PO DAILY PRN for ALLERGIES, ( Reported) Entered as Reported by: FERNANDO BRIONES on 06/22/182358 Last Action: Continued on 07/18/181002 by PÉREZ DEE MD Hydralazine Hcl (Hydralazine Hcl) 25 Mg Tablet, 1 TAB PO Q8HRS PRN for HYPERTENSION, SEE COMMENTS, (Reported) Entered as Reported by: Noemi Block on 07/18/18437 Last Action: Converted on 07/18/181002 by PÉREZ DEE MD Hydrocodone/Apap 5-325 ([place] 5-325 Tablet) 1 Each Tablet, 1-2 TAB PO PRN Q4- 6HRS PRN for PAIN, #40 (Reported) Entered as Reported by: LESLY BEDOLLA on 06/22/18 0330 Last Action: Continued on 07/18/181002 by PÉREZ DEE MD Lorazepam (Lorazepam) 1 Mg Tablet, 1 TAB PO TID PRN PRN for ANXIETY / AGITATION , #90 (Reported) Entered as Reported by: LESLY BEDOLLA on 06/22/18329 Last Action: Continued on 07/18/181002 by PÉREZ DEE MD Discontinued Medications Atenolol (Atenolol) 100 Mg Tablet, 1 TAB PO DAILY for HTN , #30 Ref 5 (Reported) Entered as Reported by: LESLY BEDOLLA on 06/22/18317 Last Action: HELD on 07/18/181002 by PÉREZ DEE MD Clonidine (Clonidine Tts-2) 1 Each Patch.tdwk, 1 PATCH TD Q3DAYS for hypertension, (Reported) Entered as Reported by: Noemi Block on 07/18/188 Last Action: Continued on 07/18/181002 by PÉREZ DEE MD Glipizide/Metformin Hcl (Glipizide-Metformin 2.5-500 Mg) 1 Each Tablet, 2 EACH PO DAILY for DMII, (Reported) Entered as Reported by: LESLY BEDOLLA on 06/22/18323 Last Action: HELD on 07/18/181002 by PÉREZ DEE MD Glipizide/Metformin Hcl (Glipizide-Metformin 2.5-500 Mg) 1 Each Tablet, 1 EACH PO DAILYWSUP for DMII, (Reported) Entered as Reported by: LESLY BEDOLLA on 06/22/18329 Last Action: HELD on 07/18/181002 by PÉREZ DEE MD Hydrochlorothiazide (Hydrochlorothiazide Tablet) 12.5 Mg Tablet, 12.5 MG PO DAILY for DIURETIC, Ref 0 (Reported) Entered as Reported by: FERNANDO BRIONES on 06/22/182357 Last Action: Converted on 07/18/181002 by PÉREZ DEE MD Lisinopril (Lisinopril) 40 Mg Tablet, 1 TAB PO DAILY for HTN, #30 Ref 5 ( Reported) Entered as Reported by: LESLY BEDOLLA on 06/22/18317 Last Action: Continued on 07/18/181002 by PÉREZ DEE MD Lisinopril (Lisinopril) 40 Mg Tablet, 1 TAB PO DAILY for htn, (Reported) Entered as Reported by: Noemi Block on 07/18/18437 Last Action: HELD on 07/18/181002 by PÉREZ DEE MD Metformin Hcl (Metformin Hcl Er) 500 Mg Tab.er.24h, 500 MG PO DAILYWBKFT for ANTI-DIABETIC, Ref 0 (Reported) Entered as Reported by: LESLY BEDOLLA on 06/22/18317 Last Action: HELD on 07/18/181002 by PÉREZ DEE MD Metformin Hcl (Metformin Hcl) 500 Mg Tablet, 1 TAB PO DAILY for diabetes, ( Reported) Entered as Reported by: Noemi Block on 07/18/18437 Last Action: Converted on 07/18/181002 by MD LUIZ LOPEZ CHRISTOPHER S MD Jul 20, 2018 14:52
--- NOTE | 2018-07-20 14:53 | PDOC ---
PROGRESS NOTES Assessment New and old infarcts in the left middle cerebral artery distribution. Possible atrial fib/flutter that could have caused the strokes, but cardiology does not think that is the case. MRA shows left middle cerebral artery low flow as reviewed below. Plan Okay for discharge Follow up with cardiology for LINQ recorder Continue aspirin, patient has been noncompliant, therefore no role for clopidogrel or NOAC Rehabilitation modalities, patient has been resistant here in the hospital as well as at home. Follow-up with Dr. Kaminski as previously scheduled. Can consider 2nd opinion as outpatient with tertiary stroke team at or [facility]. Fully discussed with patient's daughter. Subjective none Objective Vital Signs Date Time Temp Pulse Resp B/P (MAP) Pulse Ox O2 Delivery O2 Flow Rate FiO2 07/20/18 11:10 98.3 57 18 122/59 (80) 100 Room Air 98.3 Intake and Output 07/20/18 06:59 Intake Total 240 ml Output Total 800 ml Balance -560 ml Intake Oral 240 ml Output Urine Total 800 ml PHYSICAL EXAM Alert. Expressive and receptive aphasia PERRL. EOMI. CN: no focal findings. Muscle tone: normal. Muscle strength: 4/5, right has strengthened, no pronator drift DTR: 2+ Plantar reflex: flexor Gait: not examined in bed. Sensory exam: no abnormal findings. Cerebellar: not cooperative Review of Relevant I have reviewed the following items samantha (where applicable) has been applied. Labs Laboratory Tests Test 07/18/18 21:04 07/19/18 04:50 07/19/18 07:09 07/19/18 12:17 Glucose (Fingerstick) 168 mg/dL (70-99) 119 mg/dL (70-99) 66 mg/dL (70-99) Sodium Level 138 mmol/L (136-145) Potassium Level 4.5 mmol/L (3.5-5.1) Chloride Level 105 mmol/L (98-107) Carbon Dioxide Level 21 mmol/L (21-32) Anion Gap 12 (6-14) Blood Urea Nitrogen 40 mg/dL (7-20) Creatinine 1.8 mg/dL (0.6-1.0) Estimated GFR (Cockcroft-Gault) 28.1 Glucose Level 112 mg/dL (70-99) Calcium Level 9.3 mg/dL (8.5-10.1) Triglycerides Level 107 mg/dL (0-150) Cholesterol Level 105 mg/dL (0-200) LDL Cholesterol, Calculated 52 mg/dL (0-100) VLDL Cholesterol, Calculated 21 mg/dL (0-40) Non-HDL Cholesterol Calculated 73 mg/dL (0-129) HDL Cholesterol 32 mg/dL (40-60) Cholesterol/HDL Ratio 3.3 Test 07/19/18 16:49 07/19/18 21:18 07/20/18 07:16 07/20/18 09:25 Glucose (Fingerstick) 108 mg/dL (70-99) 91 mg/dL (70-99) 106 mg/dL (70-99) Sodium Level 137 mmol/L (136-145) Potassium Level 4.2 mmol/L (3.5-5.1) Chloride Level 101 mmol/L (98-107) Carbon Dioxide Level 23 mmol/L (21-32) Anion Gap 13 (6-14) Blood Urea Nitrogen 24 mg/dL (7-20) Creatinine 1.6 mg/dL (0.6-1.0) Estimated GFR (Cockcroft-Gault) 32.2 Glucose Level 169 mg/dL (70-99) Calcium Level 9.6 mg/dL (8.5-10.1) Phosphorus Level 4.4 mg/dL (2.6-4.7) Albumin 3.5 g/dL (3.4-5.0) Test 07/20/18 11:08 Glucose (Fingerstick) 146 mg/dL (70-99) Laboratory Tests Test 07/19/18 16:49 07/19/18 21:18 07/20/18 07:16 07/20/18 09:25 Glucose (Fingerstick) 108 mg/dL (70-99) 91 mg/dL (70-99) 106 mg/dL (70-99) Sodium Level 137 mmol/L (136-145) Potassium Level 4.2 mmol/L (3.5-5.1) Chloride Level 101 mmol/L (98-107) Carbon Dioxide Level 23 mmol/L (21-32) Anion Gap 13 (6-14) Blood Urea Nitrogen 24 mg/dL (7-20) Creatinine 1.6 mg/dL (0.6-1.0) Estimated GFR (Cockcroft-Gault) 32.2 Glucose Level 169 mg/dL (70-99) Calcium Level 9.6 mg/dL (8.5-10.1) Phosphorus Level 4.4 mg/dL (2.6-4.7) Albumin 3.5 g/dL (3.4-5.0) Test 07/20/18 11:08 Glucose (Fingerstick) 146 mg/dL (70-99) Microbiology 07/18/18 Urine Culture - Final, Complete 07/18/18 Urine Culture Result 1 (SOFIA) - Final, Complete Medications Current Medications Sodium Chloride 1,000 ml @ 1,000 mls/hr 1X ONCE IV ; Start 07/17/18 at 23:33; Stop 07/18/18 at 00:32; Status DC Sodium Chloride 1,000 ml @ 100 mls/hr Q10H IV Last administered on 07/18/18at 02:11; Start 07/18/18 at 00:00; Stop 07/18/18 at 00:01; Status DC Ceftriaxone Sodium (Rocephin) 1 gm 1X ONCE IVP Last administered on 07/18/18at 05:26; Start 07/18/18 at 04:30; Stop 07/18/18 at 04:31; Status DC Acetaminophen (Tylenol) 650 mg PRN Q6HRS PRN PO TEMP > 100.4F; Start 07/18/18 at 08:45; Status Cancel Acetaminophen (Tylenol Supp) 650 mg PRN Q4HRS PRN IA TEMP > 100.4F; Start 07/18 at 08:45; Status Cancel Aspirin (Ecotrin) 325 mg DAILYWBKFT PO Last administered on 07/20/18at 08:19; Start 07/18/18 at 09:30 Sodium Chloride 1,000 ml @ 100 mls/hr 1X ONCE IV Last administered on at 12:17; Start 07/18/18 at 09:45; Stop 07/18/18 at 19:44; Status DC Amlodipine Besylate (Norvasc) 10 mg DAILY PO ; Start 07/18/18 at 11:00; Stop at 15:15; Status DC Cetirizine HCl (ZyrTEC) 10 mg PRN DAILY PRN PO ALLERGIES; Start 07/18/18 at 10: 15 Clonidine HCl (Catapres Tts-2) 1 patch WEEKLY TD ; Start 07/18/18 at 11:00; Stop 07/18/18 at 13:19; Status DC Glipizide (Glucotrol) 5 mg DAILY PO Last administered on 07/20/18at 08:19; Start 07/18/18 at 11:00 Acetaminophen/ Hydrocodone Bitart (Lortab 5/325) 1 tab PRN Q6HRS PRN PO PAIN; Start 07/18/18 at 10:15 Levothyroxine Sodium (Synthroid) 100 mcg DAILY07 PO Last administered on at 08:19; Start 07/18/18 at 11:00 Lisinopril (Prinivil) 40 mg DAILY PO Last administered on 07/20/18at 08:19; Start 07/18/18 at 11:00 Lorazepam (Ativan) 1 mg TID PRN PRN PO ANXIETY / AGITATION; Start 07/18/18 at 10:15 Simvastatin (Zocor) 5 mg HS PO Last administered on 07/19/18at 20:42; Start at 21:00 Hydralazine HCl (Apresoline) 25 mg PRN TID PRN PO HYPERTENSION; Start 07/18/18 at 14:00 Hydrochlorothiazide (Microzide) 12.5 mg DAILY PO ; Start 07/18/18 at 11:00; Stop 07/18/18 at 15:15; Status DC Non-Formulary Medication (Metformin Hcl ) 1 tab DAILY PO ; Start 07/19/18 at 09: 00; Status UNV Pantoprazole Sodium (Protonix) 40 mg DAILYAC PO Last administered on 07/20/18at 08:19; Start 07/18/18 at 11:00 Acetaminophen (Tylenol) 650 mg PRN Q6HRS PRN PO TEMP > 100.4F; Start 07/19/18 at 10:45 Acetaminophen (Tylenol Supp) 650 mg PRN Q4HRS PRN IA TEMP > 100.4F; Start 07/19 at 10:45 Active Scripts Active Reported Amlodipine Besylate 10 Mg Tablet 1 Tab PO DAILY Simvastatin 5 Mg Tablet 1 Tab PO HS Glipizide 5 Mg Tablet 1 Tab PO DAILY Hydralazine Hcl 25 Mg Tablet 1 Tab PO Q8HRS PRN Zyrtec (Cetirizine Hcl) 10 Mg Tablet 10 Mg PO DAILY PRN Prilosec Otc (Omeprazole Magnesium) 20 Mg Tablet.dr 20 Mg PO DAILY Lorazepam 1 Mg Tablet 1 Tab PO TID PRN PRN [place] 5-325 Tablet (Acetaminophen/Hydrocodone Bitart) 1 Each Tablet 1-2 Tab PO PRN Q4-6HRS PRN Levothyroxine Sodium 100 Mcg Tablet 1 Tab PO DAILY Vitals/I & O Vital Sign - Last 24 Hours 07/19/18 07/19/18 07/19/18 07/19/18 14:50 19:00 20:20 23:13 Temp 97.9 98.4 98.6 97.9 98.4 98.6 Pulse 55 60 71 Resp 18 20 20 B/P (MAP) 126/61 (82) 134/84 (101) 125/91 (102) Pulse Ox 99 100 99 O2 Delivery Room Air Room Air Room Air Room Air 07/20/18 07/20/18 07/20/18 07/20/18 03:00 07:10 08:00 08:19 Temp 97.8 97.8 97.8 97.8 Pulse 77 57 57 Resp 18 18 B/P (MAP) 118/66 (83) 134/66 (88) 134/66 Pulse Ox 99 98 O2 Delivery Room Air Room Air Room Air 07/20/18 11:10 Temp 98.3 98.3 Pulse 57 Resp 18 B/P (MAP) 122/59 (80) Pulse Ox 100 O2 Delivery Room Air Intake and Output 07/19/18 07/19/18 07/20/18 14:59 22:59 06:59 Intake Total 240 ml Output Total 250 ml 350 ml 200 ml Balance -10 ml -350 ml -200 ml Images MRA of the brain without contrast 07/19/2018 Mild to moderate atheromatous plaque formation is seen involving the cavernous portions of both internal carotid arteries. No area of stenosis or occlusion is seen. Mild to moderate atheromatous plaque formation is seen involving the proximal anterior and middle cerebral arteries, left greater than right. No hemodynamically significant stenosis is seen. Diminished arterial flow is seen to the branches of the left middle cerebral artery when compared to the right. Mild atheromatous plaque formation is seen involving the proximal posterior cerebral arteries bilaterally. No area of stenosis or occlusion is seen. IMPRESSION: Diminished arterial flow is seen to the branches of the left middle cerebral artery which corresponds to the patient's area of infarction. No hemodynamically significant stenosis is seen. MRA of the Neck without and with Contrast 07/19/2018 Comparison is made to carotid ultrasound dated 06/22/2018. Mild to moderate atheromatous plaque formation is seen involving both carotid bifurcations, left greater than right. No hemodynamically significant stenosis is seen. The left vertebral artery is dominant. The right vertebral artery is very small and difficult to evaluate. The left vertebral artery demonstrates normal antegrade flow. No area of stenosis or occlusion is seen. Impression: Mild to moderate atheromatous plaque formation is seen involving both carotid bifurcations, left greater than right. No hemodynamically significant stenosis or area of occlusion is seen. DEMARCO CORRIGAN MD Jul 20, 2018 14:53
[2018-07-20 15:05] VITALS: BP 148/64
[2018-07-20] MEDS ORDERED: ASPI325T11 PO (15:17)
--- NOTE | 2018-07-20 15:54 | NUR ---
Per Dr. Dawn patient only to take ASA 325mg daily. High risk for hemorrhagic stroke if change in antithrombotic medications. Addendum: 07/20/18 at 1555 by DUANE MCGRAW RN Amended: Links added.
--- NOTE | 2018-07-20 16:10 | NUR ---
EZEKIEL following pt. EZEKIEL phoned and faxed resumption orders to [facility]. Spoke with Pt's daughter, Lena via phone who will be coming to pick and shovel man pt. Discussed with RN.
--- NOTE | 2018-07-20 17:36 | NUR ---
Discharge Note: [facility] Discharge instructions and discharge home medications reviewed with Family Member and a copy given. All questions have been answered and understanding verbalized. The following instructions and handouts were given: follow up instructions, prescription for aspirin. Discontinued lines and drains: 20 gauge left wrist, 20 gauge left AC, tips intact. patient tolerated well. Patient discharged to home with home health via family.
== END 2018-07-20 18:05 | disposition home health service (06) | DRG 64 ==
LOC: ER 21:29 → 6 SOUTH 23:10
PROVIDERS: ADMIT Internal Medicine; ATTEND Internal Medicine
DX: I63.9 Cerebral infarction, unspecified (principal); G93.41 Metabolic encephalopathy; N17.9 Acute kidney failure, unspecified; I69.351 Hemiplegia and hemiparesis following cerebral infarction affecting right dominant side; I48.92 Unspecified atrial flutter; R47.01 Aphasia; E03.9 Hypothyroidism, unspecified; I95.9 Hypotension, unspecified; E86.0 Dehydration; E87.6 Hypokalemia; N18.9 Chronic kidney disease, unspecified; I12.9 Hypertensive chronic kidney disease with stage 1 through stage 4 chronic kidney disease, or unspecified chronic kidney disease; E11.22 Type 2 diabetes mellitus with diabetic chronic kidney disease; F41.9 Anxiety disorder, unspecified; I48.91 Unspecified atrial fibrillation; E78.5 Hyperlipidemia, unspecified; Z90.49 Acquired absence of other specified parts of digestive tract; Z83.3 Family history of diabetes mellitus
CPT/HCPCS: 36415; 51702; 70450; 70544; 70547; 70551; 80048; 80053; 80061; 80069; 81001; 82962; 85025; 85610; 87086; 93005; J0696; J7030; 92610; 97110; 97530; 97535; 99285-25

== ENCOUNTER 2019-03-02 22:18 | Emergency (ER) | payer OTHER ==
[~2019-03-02] VITALS: Ht 162.6 cm; Wt 52.2 kg
[~2019-03-02 22:18] MED LIST changes: +AMLO10TA8 PO; +ASPI325T11 PO; +CLON1PAT6 TD; +GLIP5TAB10 PO; +HYDR-2868 PO; +LISI40TA2 PO; +METF500T11 PO; +METF500T16 PO; -METF500T9 PO; +SIMV5TAB14 PO
[2019-03-02] MEDS ORDERED: CEPH-264 PO (23:05)
--- NOTE | 2019-03-02 23:06 | PHYS DOC ---
Past Medical History Past Medical History: Anxiety, CVA, Diabetes-Type II, Hypertension, Hypothyroid (JANES HERRON APRN) Past Surgical History: Appendectomy (JANES HERRON APRN) Alcohol Use: None Drug Use: None (JANES HERRON APRN) Attending Signature I have participated in the care of this patient and I have reviewed and agree with all pertinent clinical information above including history, exam, and recommendations. (ANNY HENSON MD) Adult General Chief Complaint Chief Complaint: VAGINAL PROBLEM HPI HPI Patient is a 69 year old Female who presents with left labia abscess 1 week. It is open and draining purulent fluid with blood tinged. Rates her pain at a 8/10. (JANES HERRON APRN) Review of Systems Review of Systems Constitutional: Denies fever or chills [] Eyes: Denies change in visual acuity, redness, or eye pain [] HENT: Denies nasal congestion or sore throat [] Respiratory: Denies cough or shortness of breath [] Cardiovascular: No additional information not addressed in HPI [] GI: Denies abdominal pain, nausea, vomiting, bloody stools or diarrhea [] : Denies dysuria or hematuria [] Musculoskeletal: Denies back pain or joint pain [] Integument: Denies rash or skin lesions [] Neurologic: Denies headache, focal weakness or sensory changes [] Endocrine: Denies polyuria or polydipsia [] All other systems were reviewed and found to be within normal limits, except as documented in this note. (JANES HERRON APRN) Allergies Allergies Allergies Coded Allergies Type Severity Reaction Last Updated Verified Influenza Virus Vaccines Allergy Intermediate Hives 07/17/18 Yes erythromycin base Allergy Intermediate 07/17/18 Yes metoprolol Allergy Intermediate 07/17/18 Yes atorvastatin Allergy Mild Diarrhea 07/17/18 Yes (ANNY HENSON MD) Physical Exam Physical Exam Constitutional: Well developed, well nourished, no acute distress, non-toxic jeanette earance. [] Abdomen: Bowel sounds normal, soft, no tenderness, no masses, no pulsatile masses. [] Skin: Pencil eraser sized open and draining Left labia abscess. Warm, dry, no erythema, no rash. [] Back: No tenderness, no CVA tenderness. [] Extremities: No tenderness, no cyanosis, no clubbing, ROM intact, no edema. [] Neurologic: Alert and oriented X 3, normal motor function, normal sensory function, no focal deficits noted. [] Psychologic: Affect normal, judgement normal, mood normal. [] (JANES HERRON APRN) Current Patient Data Vital Signs Vital Signs Date Time Temp Pulse Resp B/P (MAP) Pulse Ox O2 Delivery O2 Flow Rate FiO2 03/02/19 23:22 75 20 152/91 (111) 95 Room Air 03/02/19 22:40 97.4 97.4 (ANNY HENSON MD) EKG EKG [] (JANES HERRON APRN) Radiology/Procedures Radiology/Procedures [] (JANES HERRON APRN) Course & Med Decision Making Course & Med Decision Making Abdomen is soft and nontender. Afebrile. Denies dysuria, vaginal bleeding, soa, chest pain, abdominal pain, nausea, vomiting. Pelvic Exam: [place] present Abdomen: Nontender External Genitalia: Tender Left labia pencil eraser sized open abscess with surroundings redness. Normal Skin [] (JANES HERRON APRN) Dragon Disclaimer Dragon Disclaimer This electronic medical record was generated, in whole or in part, using a voice recognition dictation system. (JANES HERRON APRN) Departure Departure Impression: Primary Impression: Abscess Disposition: 01 HOME, SELF-CARE Condition: STABLE Referrals: NEFTALY HUNT MD (PCP) Patient Instructions: Abscess Additional Instructions: Try sitz baths. Take medication as prescribed. Follow up with primary care provider. Scripts Hydrocodone/Apap 5-325 ([place] 5-325 TABLET) 1 Each Tablet 1 TAB PO PRN Q6HRS PRN for PAIN, #8 TAB 0 Refills Prov: JANES HERRON APRN 03/02/19 Cephalexin (KEFLEX) 500 Mg Capsule 500 MG PO QID for 10 Days, #40 CAP Prov: JANES HERRON APRN 03/02/19 JANES HERRON APRN Mar 02, 2019 23:06 ANNY HENSON MD Mar 03, 2019 18:18
[2019-03-02 23:22] VITALS: BP 152/91
[2019-03-02] MEDS ORDERED: HYDR-3164 PO (23:25)
== END 2019-03-02 23:22 | disposition home or self-care (01) ==
LOC: ER 22:18
DX: N76.4 Abscess of vulva (principal); E11.9 Type 2 diabetes mellitus without complications; I10 Essential (primary) hypertension; E03.9 Hypothyroidism, unspecified; Z86.73 Personal history of transient ischemic attack (TIA), and cerebral infarction without residual deficits; Z90.89 Acquired absence of other organs; Z88.1 Allergy status to other antibiotic agents; Z88.8 Allergy status to other drugs, medicaments and biological substances; Z88.7 Allergy status to serum and vaccine
CPT/HCPCS: 56405; 99284